=== PATIENT | female | born 1995 | race Caucasian/White ===

== ENCOUNTER 2017-04-19 14:43 | Emergency (ER) | payer BC ==
[2017-04-19 14:58] VITALS: BP 130/81
[2017-04-19] MEDS ORDERED: Ketorolac 30 MG/ML SDV IVPUSH ONE (15:58)
[2017-04-19] MEDS ORDERED: Ondansetron 4 MG/2 ML SDV IVPUSH ONE (15:58)
[2017-04-19] MEDS: Sodium Chloride 0.9% 10 ML Syringe FLUSH PRN ×2 (16:24→18:33)
[2017-04-19] MEDS ORDERED: Sodium Chloride 0.9% 10 ML Syringe FLUSH ONE (16:46)
[2017-04-19] MEDS ORDERED: Diatrizoate Meglumine/Diatrizoate Sodium 37% 120 ML Bottle PO ONE (16:46)
[2017-04-19] MEDS ORDERED: Iopamidol 612 MG/ML 150 ML Bottle IVPUSH ONE (16:46)
--- NOTE | 2017-04-19 18:05 | EDM.PDOC ---
<Tracy Paulson - Last Filed: 04/19/17 19:54> ED HPI GENERAL MEDICAL PROBLEM - General Chief Complaint: Abdominal Pain Stated Complaint: ABDOMINAL PAIN Time Seen by Provider: 04/19/17 15:05 Source of Information: Reports: Patient History Limitations: Reports: No Limitations - History of Present Illness INITIAL COMMENTS - FREE TEXT/NARRATIVE: Uvaldo is a 21 year-old female who presents today for abdominal pain. Around 1200 today, she woke up, took her medication, and became nauseated and vomited within 15 minutes. She then suddenly developed right lower quadrant pain that she describes as sharp and constant. Prior today, she was feeling "fine" and in her usual state of health. She denies any diarrhea, fever, chills, malaise, shortness of breath or chest pain. She does report a decreased appetite today, but was at her appetite baseline prior to today. Right Lower Abdomen Pain Score (Numeric/FACES): 10 - Related Data Allergies Allergy/AdvReac Type Severity Reaction Status Date / Time albuterol Allergy Facial Verified 02/25/16 20:27 Swelling Home Meds: Home Meds [place] Carbonate 900 mg PO BID 03/30/15 [History] Venlafaxine [Effexor XR] 150 mg PO DAILY 03/30/15 [History] Budesonide [Pulmicort Flexhaler] 2 inhalation INH BID PRN 04/20/15 [History] risperiDONE [RisperiDAL] 4 mg PO BEDTIME 04/20/15 [History] Levothyroxine [Synthroid] 1 tab PO DAILY 02/25/16 [History] Solifenacin Succinate [Vesicare] 10 mg PO BEDTIME 02/25/16 [History] Past Medical History HEENT History: Reports: Impaired Vision Other HEENT History: Wears glasses Respiratory History: Reports: Asthma Neurological History: Reports: Concussion Other Neuro History: aspberger syndrome. Psychiatric History: Reports: Autism Social & Family History - Family History Family Medical History: Noncontributory - Tobacco Use Smoking Status *Q: Never Smoker Second Hand Smoke Exposure: No - Caffeine Use Caffeine Use: Reports: Soda - Recreational Drug Use Recreational Drug Use: No - Living Situation & Occupation Living situation: Reports: Single, with Family ED ROS GENERAL - Review of Systems Review Of Systems: See Below Constitutional: Reports: No Symptoms, Decreased Appetite (patient reports decreased appetite today ). Denies: Fever, Chills, Weakness, Fatigue, Night Sweats, Diaphoresis, Weight Loss Respiratory: Denies: Shortness of Breath, Wheezing, Pleuritic Chest Pain, Cough Cardiovascular: Denies: Chest Pain, Lightheadedness Endocrine: Reports: Other (abdominal pain to RLQ radiating to midline ) GI/Abdominal: Reports: Abdominal Pain. Denies: Constipation, Diarrhea, Distension : Denies: Dysuria, Frequency, Urgency Musculoskeletal: Reports: No Symptoms ED EXAM, GI/ABD - Physical Exam Exam Limited By: No Limitations General Appearance: Alert, No Apparent Distress Throat/Mouth: Normal Inspection, Normal Gums, Normal Oropharynx Head: Normocephalic Neck: Supple, Non-Tender Respiratory/Chest: No Respiratory Distress, Lungs Clear, Normal Breath Sounds Cardiovascular: Regular Rate, Rhythm GI/Abdominal Exam: Normal Bowel Sounds, Tender (tenderness to palpation to right lower quadrant, no rebound tenderness, Albarran's sign is negative. ) Back Exam: No: CVA Tenderness (L), CVA Tenderness (R) Neurological: Alert, Oriented, Normal Cognition Course - Vital Signs Last Recorded V/S: Last Vital Signs Temp 97.8 F 04/19/17 14:54 Pulse 96 04/19/17 14:54 Resp 16 04/19/17 14:54 BP 130/81 04/19/17 14:54 Pulse Ox 100 04/19/17 14:54 - Orders/Labs/Meds Orders: Active Orders 24 hr Category Date Time Status Peripheral IV Care [RC] . DIRECTED Care 04/19/17 15:53 Active Abdomen Pelvis w Cont [CT] Stat Exams 04/19/17 15:58 Taken Sodium Chloride 0.9% [Saline Flush] Med 04/19/17 15:53 Active 10 ml FLUSH ASDIRECTED PRN Peripheral IV Insertion Adult [OM.PC] Stat Oth 04/19/17 15:53 Ordered Medication Orders Sodium Chloride (Saline Flush) 10 ml FLUSH ASDIRECTED PRN PRN Reason: Keep Vein Open Last Admin: 04/19/17 18:33 Dose: 10 ml Admin: 04/19/17 16:24 Dose: 10 ml Labs: Laboratory Tests 04/19/17 04/19/17 04/19/17 Range/Units 16:05 16:05 16:14 WBC 9.62 (3.98-10.04) K/mm3 RBC 4.26 (3.98-5.22) M/mm3 Hgb 12.3 (11.2-15.7) gm/L Hct 38.7 (34.1-44.9) % MCV 90.8 (79.4-94.8) fl MCH 28.9 (25.6-32.2) pg MCHC 31.8 L (32.2-35.5) g/dl RDW Std Deviation 44.6 (36.4-46.3) fL Plt Count 281 (182-369) K/mm3 MPV 10.7 (9.4-12.3) fl Neut % (Auto) 66.5 (34.0-71.1) % Lymph % (Auto) 24.0 (19.3-51.7) % [place] % (Auto) 7.4 (4.7-12.5) % Eos % (Auto) 1.7 (0.7-5.8) Baso % (Auto) 0.2 (0.1-1.2) % Neut # (Auto) 6.40 H (1.56-6.13) K/mm3 Lymph # (Auto) 2.31 (1.18-3.74) K/mm3 [place] # (Auto) 0.71 H (0.24-0.36) K/mm3 Eos # (Auto) 0.16 (0.04-0.36) K/mm3 Baso # (Auto) 0.02 (0.01-0.08) K/mm3 Sodium (136-145) mEq/L Potassium (3.5-5.1) mEq/L Chloride (98-107) mEq/L Carbon Dioxide (21-32) mEq/L Anion Gap (5-15) BUN (7-18) mg/dL Creatinine (0.55-1.02) mg/dL Est Cr Clr Drug Dosing mL/min Estimated GFR (MDRD) (>60) mL/min BUN/Creatinine Ratio (14-18) Glucose (74-106) mg/dL Calcium (8.5-10.1) mg/dL Total Bilirubin (0.2-1.0) mg/dL AST (15-37) U/L ALT (14-59) U/L Alkaline Phosphatase (46-116) U/L C-Reactive Protein (<1.0) mg/dL Total Protein (6.4-8.2) g/dl Albumin (3.4-5.0) g/dl Globulin gm/dL Albumin/Globulin Ratio (1-2) Urine Color Light yellow (Yellow) Urine Appearance Clear (Clear) Urine pH 7.0 (5.0-8.0) Ur Specific [place] 1.015 (1.005-1.030) Urine Protein Negative (Negative) Urine Glucose (UA) Negative (Negative) Urine Ketones Negative (Negative) Urine Occult Blood Negative (Negative) Urine Nitrite Negative (Negative) Urine Bilirubin Negative (Negative) Urine Urobilinogen 0.2 (0.2-1.0) Ur Leukocyte Esterase Negative (Negative) Urine RBC 0-5 (0-5) /hpf Urine WBC 0-5 (0-5) /hpf Ur Epithelial Cells 0-5 (0-5) /hpf Urine Bacteria Moderate H (FEW) /hpf Urine Mucus Few (FEW) /hpf Urine HCG, Qual Negative (NEGATIVE) 04/19/17 Range/Units 16:14 WBC (3.98-10.04) K/mm3 RBC (3.98-5.22) M/mm3 Hgb (11.2-15.7) gm/L Hct (34.1-44.9) % MCV (79.4-94.8) fl MCH (25.6-32.2) pg MCHC (32.2-35.5) g/dl RDW Std Deviation (36.4-46.3) fL Plt Count (182-369) K/mm3 MPV (9.4-12.3) fl Neut % (Auto) (34.0-71.1) % Lymph % (Auto) (19.3-51.7) % [place] % (Auto) (4.7-12.5) % Eos % (Auto) (0.7-5.8) Baso % (Auto) (0.1-1.2) % Neut # (Auto) (1.56-6.13) K/mm3 Lymph # (Auto) (1.18-3.74) K/mm3 [place] # (Auto) (0.24-0.36) K/mm3 Eos # (Auto) (0.04-0.36) K/mm3 Baso # (Auto) (0.01-0.08) K/mm3 Sodium 141 (136-145) mEq/L Potassium 4.0 (3.5-5.1) mEq/L Chloride 109 H (98-107) mEq/L Carbon Dioxide 24 (21-32) mEq/L Anion Gap 12.0 (5-15) BUN 4 L (7-18) mg/dL Creatinine 0.9 (0.55-1.02) mg/dL Est Cr Clr Drug Dosing 86.82 mL/min Estimated GFR (MDRD) > 60 (>60) mL/min BUN/Creatinine Ratio 4.4 L (14-18) Glucose 99 (74-106) mg/dL Calcium 8.9 (8.5-10.1) mg/dL Total Bilirubin 0.2 (0.2-1.0) mg/dL AST 18 (15-37) U/L ALT 32 (14-59) U/L Alkaline Phosphatase 98 (46-116) U/L C-Reactive Protein 0.6 (<1.0) mg/dL Total Protein 6.7 (6.4-8.2) g/dl Albumin 3.6 (3.4-5.0) g/dl Globulin 3.1 gm/dL Albumin/Globulin Ratio 1.2 (1-2) Urine Color (Yellow) Urine Appearance (Clear) Urine pH (5.0-8.0) Ur Specific [place] (1.005-1.030) Urine Protein (Negative) Urine Glucose (UA) (Negative) Urine Ketones (Negative) Urine Occult Blood (Negative) Urine Nitrite (Negative) Urine Bilirubin (Negative) Urine Urobilinogen (0.2-1.0) Ur Leukocyte Esterase (Negative) Urine RBC (0-5) /hpf Urine WBC (0-5) /hpf Ur Epithelial Cells (0-5) /hpf Urine Bacteria (FEW) /hpf Urine Mucus (FEW) /hpf Urine HCG, Qual (NEGATIVE) Meds: Medications Generic Name Dose Route Start Last Admin Trade Name Freq PRN Reason Stop Dose Admin Sodium Chloride 10 ml 04/19/17 15:53 04/19/17 18:33 Saline Flush FLUSH 10 ml ASDIRECTED PRN Administration Keep Vein Open Discontinued Medications Generic Name Dose Route Start Last Admin Trade Name Freq PRN Reason Stop Dose Admin Diatrizoate Meglum/Diatrizoate Sod 90 ml 04/19/17 16:46 04/19/17 18:32 Gastrografin 37% PO 04/19/17 16:47 90 ml ONETIME ONE Administration Iopamidol 125 ml 04/19/17 16:46 04/19/17 18:32 Isovue-300 (61%) IVPUSH 04/19/17 16:47 125 ml ONETIME ONE Administration Ketorolac Tromethamine 30 mg 04/19/17 15:58 04/19/17 16:27 Toradol IVPUSH 04/19/17 15:59 30 mg ONETIME ONE Administration Ondansetron HCl 4 mg 04/19/17 15:58 04/19/17 16:25 Zofran IVPUSH 04/19/17 15:59 4 mg ONETIME ONE Administration Sodium Chloride 10 ml 04/19/17 16:46 Saline Flush FLUSH 04/19/17 16:47 ONETIME ONE - Re-Assessments/Exams Free Text/Narrative Re-Assessment/Exam: CBC, CMP, and UA were ordered and results are unremarkable. Urine test is negative. A CT abdomen and pelvis with contrast was ordered and read by Eligio. Results indicated no acute findings, normal appendix. She was given Toradol and Zofran for the treatment of pain and nausea. Her symptoms resolved and she was discharged pain free. The patient was notified of the lab and CT results and was discharged and educated on return precautions. The patient verbalized understanding of the treatment and is in agreement. Departure - Departure Disposition: Home, Self-Care 01 Clinical Impression: Abdominal pain of unknown etiology - Discharge Information Instructions: Abdominal Pain, Adult Referrals: Janessa Agee PA-C [Primary Care Provider] - Forms: ED Department Discharge Additional Instructions: Rest, drink plenty of fluids Follow-up with your primary care provider if you continue to have problems Return to ER with any worsening symptoms Tylenol 650mg every 4-6 hours as needed for pain - My Orders Last 24 Hours: My Active Orders 04/19/17 15:53 Peripheral IV Care [RC] . DIRECTED Sodium Chloride 0.9% [Saline Flush] 10 ml FLUSH ASDIRECTED PRN Peripheral IV Insertion Adult [OM.PC] Stat 04/19/17 15:58 Abdomen Pelvis w Cont [CT] Stat - Assessment/Plan Last 24 Hours: My Active Orders 04/19/17 15:53 Peripheral IV Care [RC] . DIRECTED Sodium Chloride 0.9% [Saline Flush] 10 ml FLUSH ASDIRECTED PRN Peripheral IV Insertion Adult [OM.PC] Stat 04/19/17 15:58 Abdomen Pelvis w Cont [CT] Stat <Thao Skinner - Last Filed: 04/19/17 20:34> ED HPI GENERAL MEDICAL PROBLEM - General Source of Information: Reports: Patient History Limitations: Reports: No Limitations ED ROS GENERAL - Review of Systems Review Of Systems: See Below ED EXAM, GI/ABD - Physical Exam Exam: See Below Departure - Departure Time of Disposition: 18:44 Condition: Good
--- NOTE | 2017-04-20 07:17 | CT ---
CT abdomen and pelvis Technique: Multiple axial sections were obtained from above the dome of the diaphragm inferiorly through the pubic symphysis. Intravenous and oral contrast was utilized. Delayed images were also obtained through the bladder. Comparison: Previous CT exam of 06/30/15. Findings: Visualized lung bases show nothing acute. Liver shows no focal parenchymal abnormality. Spleen appears within normal limits. Adrenal glands show no nodule. Kidneys show symmetric contrast enhancement without hydronephrosis or mass. Pancreas is normal. Aorta shows no aneurysmal dilatation. Gallbladder shows no calcified gallstones. Small retroperitoneal lymph nodes are seen which remain stable from prior exam and felt to be within normal limits. No pelvic mass or adenopathy is seen. Appendix is seen which appears normal. Delayed images show contrast within the distal ureters and bladder. No inflammatory change or free fluid is seen. Bone window settings were reviewed which appear within normal limits for the patient's age. Small fat-containing umbilical hernia is seen. Impression: 1. No acute abnormality is identified on CT study of the abdomen and pelvis. No significant change is seen from prior CT exam. Diagnostic code #2 I agree with preliminary report issued by [facility] ([facility] report finalized on 04/19/17, 7:18 PM Central Time)
== END 2017-04-19 19:05 | disposition home or self-care (01) ==
LOC: JD.ED 14:43
DX: R10.31 Right lower quadrant pain (principal); J45.909 Unspecified asthma, uncomplicated; F84.0 Autistic disorder; Z79.899 Other long term (current) drug therapy; Z88.8 Allergy status to other drugs, medicaments and biological substances
CPT/HCPCS: 36415; 74177; 80053; 81001; 81025; 85025; 86140; 96374; 96375; 99284; J1885; J2405; J7050; Q9963; Q9967

== ENCOUNTER 2018-06-27 02:59 | Emergency (ER) | payer BC ==
[2018-06-27 03:16] VITALS: BP 135/86
[2018-06-27] MEDS ORDERED: Sodium Chloride 0.9% 10 ML Syringe FLUSH PRN (03:17)
[2018-06-27] MEDS ORDERED: Ondansetron 4 MG/2 ML SDV IVPUSH ONE (03:17)
--- NOTE | 2018-06-27 03:26 | EDM.PDOCBH ---
ED HPI GENERAL MEDICAL PROBLEM - General Chief Complaint: Behavioral/Psych Stated Complaint: overdose pills Time Seen by Provider: 06/27/18 03:13 Source of Information: Reports: Patient, Family History Limitations: Reports: No Limitations - History of Present Illness INITIAL COMMENTS - FREE TEXT/NARRATIVE: The patient presents with an overdose. The patient took about 50 trazadone that were 50mgs. She did this about an hour ago. She says she felt overwhelmed this morning. She has tried to hurt herself in the past a couple years ago. She did vomit here. She has no pain. She has a history of autism and bipolar disorder. She has no fever, chills, cough, chest pain, shortness of breath or abdominal pain. Onset: Sudden Duration: Hour(s): (1) Severity: Mild Improves with: Reports: None Worsens with: Reports: None Associated Symptoms: Reports: Nausea/Vomiting. Denies: Chest Pain, Fever/Chills , Headaches, Loss of Appetite, Shortness of Breath - Related Data Allergies Allergy/AdvReac Type Severity Reaction Status Date / Time albuterol Allergy Facial Verified 06/27/18 03:11 Swelling Home Meds: Home Meds [place] Carbonate 900 mg PO BID 03/30/15 [History] Venlafaxine [Effexor XR] 150 mg PO DAILY 03/30/15 [History] Budesonide [Pulmicort Flexhaler] 2 inhalation INH BID PRN 04/20/15 [History] risperiDONE [RisperiDAL] 4 mg PO BEDTIME 04/20/15 [History] Levothyroxine [Synthroid] 1 tab PO DAILY 02/25/16 [History] Solifenacin Succinate [Vesicare] 10 mg PO BEDTIME 02/25/16 [History] Past Medical History HEENT History: Reports: Impaired Vision Other HEENT History: Wears glasses Respiratory History: Reports: Asthma Neurological History: Reports: Concussion Other Neuro History: aspberger syndrome. Psychiatric History: Reports: Autism Social & Family History - Family History Family Medical History: Noncontributory - Caffeine Use Caffeine Use: Reports: Soda - Living Situation & Occupation Living situation: Reports: Single, with Family ED ROS GENERAL - Review of Systems Review Of Systems: See Below Constitutional: Reports: No Symptoms HEENT: Reports: No Symptoms Respiratory: Reports: No Symptoms Cardiovascular: Reports: No Symptoms Endocrine: Reports: No Symptoms GI/Abdominal: Reports: Nausea, Vomiting. Denies: Abdominal Pain : Reports: No Symptoms Musculoskeletal: Reports: No Symptoms ED EXAM, BEHAVIORAL HEALTH - Physical Exam Exam: See Below Exam Limited By: No Limitations General Appearance: Alert, No Apparent Distress Ears: Normal External Exam Nose: Normal Inspection Head: Atraumatic, Normocephalic Neck: Normal Inspection Respiratory/Chest: No Respiratory Distress, Lungs Clear, Normal Breath Sounds Cardiovascular: Regular Rate, Rhythm, No Edema, No Murmur GI/Abdominal: Soft, Non-Tender, No Organomegaly, No Mass Back Exam: Normal Inspection Extremities: Normal Inspection COURSE, BEHAVIORAL HEALTH COMP - Course Vital Signs: Last Vital Signs Temp 97.4 F 06/27/18 03:12 Pulse 100 06/27/18 03:12 Resp 18 06/27/18 03:12 BP 135/86 06/27/18 03:12 Pulse Ox 100 06/27/18 03:12 Orders, Labs, Meds: Active Orders 24 hr Category Date Time Status Cardiac Monitoring [RC] . DIRECTED Care 06/27/18 03:17 Active EKG Documentation Completion [RC] STAT Care 06/27/18 03:18 Active Peripheral IV Care [RC] . DIRECTED Care 06/27/18 03:18 Active DRUG SCREEN, URINE [URCHEM] Stat Lab 06/27/18 03:17 Ordered Sodium Chloride 0.9% [Normal Saline] 1,000 ml Med 06/27/18 03:30 Active IV ASDIRECTED Sodium Chloride 0.9% [Saline Flush] Med 06/27/18 03:17 Active 10 ml FLUSH ASDIRECTED PRN ED Antiemetic Medication Reflex [OM.PC] Stat Oth 06/27/18 03:17 Ordered Peripheral IV Insertion Adult [OM.PC] Stat Oth 06/27/18 03:17 Ordered Medication Orders Sodium Chloride (Normal Saline) 1,000 mls @ 125 mls/hr IV ASDIRECTED BABATUNDE Last Admin: 06/27/18 03:26 Dose: 125 mls/hr Sodium Chloride (Saline Flush) 10 ml FLUSH ASDIRECTED PRN PRN Reason: Keep Vein Open Last Admin: 06/27/18 03:26 Dose: 10 ml Laboratory Tests 06/27/18 06/27/18 06/27/18 Range/Units 03:20 03:20 03:20 WBC 15.46 H (3.98-10.04) K/mm3 RBC 4.80 (3.98-5.22) M/mm3 Hgb 14.1 (11.2-15.7) gm/L Hct 43.4 (34.1-44.9) % MCV 90.4 (79.4-94.8) fl MCH 29.4 (25.6-32.2) pg MCHC 32.5 (32.2-35.5) g/dl RDW Std Deviation 42.3 (36.4-46.3) fL Plt Count 302 (182-369) K/mm3 MPV 10.3 (9.4-12.3) fl Neut % (Auto) 74.0 H (34.0-71.1) % Lymph % (Auto) 19.3 (19.3-51.7) % [place] % (Auto) 6.0 (4.7-12.5) % Eos % (Auto) 0.3 L (0.7-5.8) Baso % (Auto) 0.1 (0.1-1.2) % Neut # (Auto) 11.43 H (1.56-6.13) K/mm3 Lymph # (Auto) 2.98 (1.18-3.74) K/mm3 [place] # (Auto) 0.93 H (0.24-0.36) K/mm3 Eos # (Auto) 0.05 (0.04-0.36) K/mm3 Baso # (Auto) 0.02 (0.01-0.08) K/mm3 Sodium 136 (136-145) mEq/L Potassium 3.8 (3.5-5.1) mEq/L Chloride 103 (98-107) mEq/L Carbon Dioxide 24 (21-32) mEq/L Anion Gap 12.8 (5-15) BUN 9 (7-18) mg/dL Creatinine 0.9 (0.55-1.02) mg/dL Est Cr Clr Drug Dosing TNP Estimated GFR (MDRD) > 60 (>60) mL/min BUN/Creatinine Ratio 10.0 L (14-18) Glucose 108 H (74-106) mg/dL Calcium 10.1 (8.5-10.1) mg/dL Total Bilirubin 0.4 (0.2-1.0) mg/dL AST 21 (15-37) U/L ALT 34 (14-59) U/L Alkaline Phosphatase 128 H (46-116) U/L Total Protein 8.0 (6.4-8.2) g/dl Albumin 4.1 (3.4-5.0) g/dl Globulin 3.9 gm/dL Albumin/Globulin Ratio 1.1 (1-2) HCG, Qual Negative (NEGATIVE) Salicylates (2.8-20) mg/dL Acetaminophen 0 L (10-30) ug/mL Ethyl Alcohol 0.00 (0.00) gm% 06/27/18 Range/Units 03:20 WBC (3.98-10.04) K/mm3 RBC (3.98-5.22) M/mm3 Hgb (11.2-15.7) gm/L Hct (34.1-44.9) % MCV (79.4-94.8) fl MCH (25.6-32.2) pg MCHC (32.2-35.5) g/dl RDW Std Deviation (36.4-46.3) fL Plt Count (182-369) K/mm3 MPV (9.4-12.3) fl Neut % (Auto) (34.0-71.1) % Lymph % (Auto) (19.3-51.7) % [place] % (Auto) (4.7-12.5) % Eos % (Auto) (0.7-5.8) Baso % (Auto) (0.1-1.2) % Neut # (Auto) (1.56-6.13) K/mm3 Lymph # (Auto) (1.18-3.74) K/mm3 [place] # (Auto) (0.24-0.36) K/mm3 Eos # (Auto) (0.04-0.36) K/mm3 Baso # (Auto) (0.01-0.08) K/mm3 Sodium (136-145) mEq/L Potassium (3.5-5.1) mEq/L Chloride (98-107) mEq/L Carbon Dioxide (21-32) mEq/L Anion Gap (5-15) BUN (7-18) mg/dL Creatinine (0.55-1.02) mg/dL Est Cr Clr Drug Dosing Estimated GFR (MDRD) (>60) mL/min BUN/Creatinine Ratio (14-18) Glucose (74-106) mg/dL Calcium (8.5-10.1) mg/dL Total Bilirubin (0.2-1.0) mg/dL AST (15-37) U/L ALT (14-59) U/L Alkaline Phosphatase (46-116) U/L Total Protein (6.4-8.2) g/dl Albumin (3.4-5.0) g/dl Globulin gm/dL Albumin/Globulin Ratio (1-2) HCG, Qual (NEGATIVE) Salicylates 1.3 L (2.8-20) mg/dL Acetaminophen (10-30) ug/mL Ethyl Alcohol (0.00) gm% Medications Generic Name Dose Route Start Last Admin Trade Name Freq PRN Reason Stop Dose Admin Sodium Chloride 1,000 mls @ 125 mls/hr 06/27/18 03:30 06/27/18 03:26 Normal Saline IV 125 mls/hr ASDIRECTED BABATUNDE Administration Sodium Chloride 10 ml 06/27/18 03:17 06/27/18 03:26 Saline Flush FLUSH 10 ml ASDIRECTED PRN Administration Keep Vein Open Discontinued Medications Generic Name Dose Route Start Last Admin Trade Name Freq PRN Reason Stop Dose Admin Ondansetron HCl 4 mg 06/27/18 03:17 06/27/18 03:26 Zofran IVPUSH 06/27/18 03:18 4 mg ONETIME ONE Administration Re-Assessment/Re-Exam: I ordered an IV NS at 125mL/hr, zofran 4mg IV, labs and an EKG. I called poison control and they said peak effect is 2 hours and to watch for her getting sleepy, hypotensive and QT prolongation. They recommended observing for a minimum of 4 hours. Her EKG shows a NSR with no acute changes. Her WBC was elevated at 15.46. Her Alk Phos was elevated at 128. Her HCG was negative. Her salicylate level was 1.3. Her acetaminophen level was 0. Her ETOH was 0. She has been doing good She is nearing the 4 hour observation period. I talked to her again and she was impulsive early this morning over a boy. I do not think she is a danger to herself. I feel it is safe to send her home. Departure - Departure Time of Disposition: 06:45 Disposition: Home, Self-Care 01 Condition: Good Clinical Impression: Suicidal ideation Overdose Qualifiers: Encounter type: initial encounter Injury intent: intentional self-harm Qualified Code(s): T50.902A - Poisoning by unspecified drugs, medicaments and biological substances, intentional self-harm, initial encounter - Discharge Information *PRESCRIPTION DRUG MONITORING PROGRAM REVIEWED*: No *COPY OF PRESCRIPTION DRUG MONITORING REPORT IN PATIENT CHERY: No Referrals: PCP,Not In Area [Primary Care Provider] - Forms: ED Department Discharge Additional Instructions: Call Dr Rollins's office and let them know what happened. Talk to your mom or someone else if you have these feelings again. Please return if you are worse. - My Orders Last 24 Hours: My Active Orders 06/27/18 03:17 Cardiac Monitoring [RC] . DIRECTED DRUG SCREEN, URINE [URCHEM] Stat Sodium Chloride 0.9% [Saline Flush] 10 ml FLUSH ASDIRECTED PRN ED Antiemetic Medication Reflex [OM.PC] Stat Peripheral IV Insertion Adult [OM.PC] Stat 06/27/18 03:18 EKG Documentation Completion [RC] STAT Peripheral IV Care [RC] . DIRECTED 06/27/18 03:30 Sodium Chloride 0.9% [Normal Saline] 1,000 ml IV ASDIRECTED - Assessment/Plan Last 24 Hours: My Active Orders 06/27/18 03:17 Cardiac Monitoring [RC] . DIRECTED DRUG SCREEN, URINE [URCHEM] Stat Sodium Chloride 0.9% [Saline Flush] 10 ml FLUSH ASDIRECTED PRN ED Antiemetic Medication Reflex [OM.PC] Stat Peripheral IV Insertion Adult [OM.PC] Stat 06/27/18 03:18 EKG Documentation Completion [RC] STAT Peripheral IV Care [RC] . DIRECTED 06/27/18 03:30 Sodium Chloride 0.9% [Normal Saline] 1,000 ml IV ASDIRECTED
[2018-06-27] MEDS ORDERED: Sodium Chloride 0.9% 1,000 ML IV SCH (03:30)
[2018-06-27 04:04] LABS: ACETAMINOPHEN 0 ug/mL (10-30)
== END 2018-06-27 06:58 | disposition home or self-care (01) ==
LOC: JD.ED 02:59
DX: T43.212A Poisoning by selective serotonin and norepinephrine reuptake inhibitors, intentional self-harm, initial encounter (principal); J45.909 Unspecified asthma, uncomplicated; Z79.899 Other long term (current) drug therapy
CPT/HCPCS: 36415; 80053; 84703; 85025; 93005; 96361; 96374; 99285; G0480; J2405; J7040; J7050; 93010; 99284-25

== ENCOUNTER 2018-11-12 13:35 | Emergency (ER) | payer OTHER, BC ==
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
[2018-11-12 14:25] VITALS: BP 108/69
== END 2018-11-12 14:12 | disposition home or self-care (01) ==
LOC: JD.ED 13:35
DX: M25.562 Pain in left knee (principal); R07.89 Other chest pain; V54.6XXA Passenger in pick-up truck or van injured in collision with heavy transport vehicle or bus in traffic accident, initial encounter
CPT/HCPCS: 99282; 99284

== ENCOUNTER 2019-11-16 19:36 | Inpatient (IN) | payer BC, MEDICAID ==
[2019-11-16] MEDS ORDERED: Sodium Chloride 0.9% 10 ML Syringe FLUSH PRN (20:19)
[2019-11-16] MEDS ORDERED: Ondansetron 4 MG/2 ML SDV IVPUSH ONE (20:22)
[2019-11-16] MEDS ORDERED: Sodium Chloride 0.9% 1,000 ML IV SCH (20:30)
--- NOTE | 2019-11-16 20:30 | EDM.PDOC ---
ED HPI GENERAL MEDICAL PROBLEM - General Chief Complaint: Fever Stated Complaint: FEVER/VOMITING Time Seen by Provider: 11/16/19 20:02 Source of Information: Reports: Patient, Family History Limitations: Reports: No Limitations - History of Present Illness INITIAL COMMENTS - FREE TEXT/NARRATIVE: Fever, cough, congestion, vomiting, and diarrhea for the last 2 days. Mother states that her temp at home was 103 degrees. She had Tylenol approximately 1 hour ago. Current temperature is 100.3. Patient states that anytime she is eaten or drank anything for the last 2 days, she vomits. Denies any significant abdominal pain. Family members have been sick with respiratory symptoms, however no one else in the house has had vomiting or diarrhea. Patient has a history of asthma, however she has been asymptomatic. Patient currently has a cardiac loop recorder as she has had episodes of "heart block". 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 Bilateral Back Pain Score (Numeric/FACES): 4 - Related Data Allergies Allergy/AdvReac Type Severity Reaction Status Date / Time albuterol Allergy Facial Verified 11/17/19 03:05 Swelling amoxicillin [From Augmentin] Allergy Rash Verified 11/17/19 03:05 clavulanic acid Allergy Rash Verified 11/17/19 03:05 [From Augmentin] Home Meds: Home Meds Prazosin HCl [Prazosin] 10 mg PO BEDTIME PRN 07/10/19 [History] RX: ClonazePAM [KlonoPIN] 0.5 mg PO BEDTIME 07/10/19 [History] RX: Levothyroxine 75 mcg PO QAM 07/10/19 [History] RX: metFORMIN [Glucophage] 500 mg PO BEDTIME 07/10/19 [History] traZODone HCl [Trazodone HCl] 50 mg PO BEDTIME PRN 07/10/19 [History] RX: [place] Carbonate [Eskalith CR] 450 mg PO BID 11/16/19 [History] Cariprazine Hydrochloride [Vraylar] 3 mg PO DAILY 11/17/19 [History] RX: cloNIDine [Catapres] 0.1 mg PO DAILY 11/17/19 [History] Past Medical History HEENT History: Reports: Impaired Vision Other HEENT History: Wears glasses Cardiovascular History: Reports: Hypertension, Other (See Below) Other Cardiovascular History: heart block Respiratory History: Reports: Asthma Gastrointestinal History: Reports: GERD BOX TENDER History: Reports: Other (See Below) Other BOX TENDER History: LEEP procedure for cervical dysplasia in November of 2018 Neurological History: Reports: Other (See Below) Other Neuro History: aspberger syndrome, stoke-like symptoms wtih neurological deficits in 2014 Psychiatric History: Reports: Anxiety, Autism, Bipolar, Depression, Mood Swings , PTSD, Suicide Attempt, Suicidal Ideation Endocrine/Metabolic History: Reports: Diabetes, Type II, Hypothyroidism, Obesity /BMI 30+ - Past Surgical History Cardiovascular Surgical History: Reports: Other (See Below) Other Cardiovascular Surgeries/Procedures: loop recorder placed end of oct Female Surgical History: Reports: LEEP Neurological Surgical History: Reports: None Social & Family History - Family History Family Medical History: Noncontributory - Tobacco Use Smoking Status *Q: Current Every Day Smoker Years of Tobacco use: 3 Packs/Tins Daily: 0.3 - Caffeine Use Caffeine Use: Reports: Coffee, Soda - Recreational Drug Use Recreational Drug Use: No - Living Situation & Occupation Living situation: Reports: Single, with Family ( lives with her parents.) Occupation: Employed ([employer]) ED ROS GENERAL - Review of Systems Review Of Systems: Comprehensive ROS is negative, except as noted in HPI. ED EXAM, GENERAL - Physical Exam Exam: See Below Exam Limited By: No Limitations General Appearance: Alert, WD/WN, Mild Distress Ears: Normal External Exam, Normal Canal, Hearing Grossly Normal, Normal TMs Throat/Mouth: Normal Inspection, Normal Lips, Normal Teeth, Normal Gums, Normal Voice, No Airway Compromise, Other (Dry, coated tongue) Respiratory/Chest: No Respiratory Distress, Lungs Clear, Normal Breath Sounds, No Accessory Muscle Use, Chest Non-Tender Cardiovascular: Normal Peripheral Pulses, Regular Rate, Rhythm, No Edema, No Gallop, No JVD, No Murmur, No Rub GI/Abdominal: Normal Bowel Sounds, Soft, Non-Tender, No Organomegaly, No Distention, No Abnormal Bruit, No Mass Back Exam: Normal Inspection, Full Range of Motion, CVA Tenderness (L), CVA Tenderness (R) Neurological: Alert, Oriented, CN II-XII Intact, Normal Cognition, Normal Gait, Normal Reflexes, No Motor/Sensory Deficits Psychiatric: Normal Affect, Normal Mood Skin Exam: Warm, Dry, Intact, Normal Color, No Rash Course - Vital Signs Last Recorded V/S: Last Vital Signs Temp 97.3 F 11/17/19 07:34 Pulse 117 H 11/17/19 07:34 Resp 28 H 11/17/19 07:34 BP 138/94 H 11/17/19 09:50 Pulse Ox 99 11/17/19 07:34 - Orders/Labs/Meds Orders: Active Orders 24 hr Category Date Time Status Activity as Tolerated [RC] .Routine Care 11/17/19 02:55 Active EKG Documentation Completion [RC] STAT Care 11/16/19 20:20 Active Orthostatic Vital Signs [RC] ASDIRECTED Care 11/16/19 20:02 Inactive Clear Liquid Diet [DIET] Diet 11/17/19 Breakfast Active CULTURE BLOOD [BC] Stat Lab 11/16/19 22:50 Received CULTURE BLOOD [BC] Stat Lab 11/16/19 22:57 Received CULTURE URINE [RM] Stat Lab 11/16/19 21:54 Results HYDROmorphone [Dilaudid] Med 11/17/19 05:31 Active 0.5 mg IVPUSH Q2H PRN Ondansetron [Zofran] Med 11/17/19 02:55 Active 4 mg IVPUSH Q6H PRN Sodium Chloride 0.9% [Saline Flush] Med 11/16/19 20:19 Active 10 ml FLUSH ASDIRECTED PRN Sodium Chloride 0.9% with KCl [Normal Saline with 40 Med 11/17/19 03:00 Active mEq KCl] 1,000 ml IV ASDIRECTED Blood Culture x2 Reflex Set [OM.PC] Stat Oth 11/16/19 22:28 Ordered Peripheral IV Insertion Adult [OM.PC] Stat Oth 11/16/19 20:19 Ordered Code Status [Resuscitation Status] Routine Resus Stat 11/17/19 02:53 Ordered Medication Orders Acetaminophen (Tylenol) 650 mg PO Q4H PRN PRN Reason: Pain (Mild 1-3)/fever Hydrocodone Bitart/Acetaminophen (Horner 325-5 Mg) 1 tab PO Q4H PRN PRN Reason: Pain (moderate 4-6) Last Admin: 11/17/19 11:08 Dose: 1 tab Clonazepam (Klonopin) 0.5 mg PO BEDTIME BABATUNDE Clonidine HCl (Catapres) 0.1 mg PO DAILY BABATUNDE Last Admin: 11/17/19 09:50 Dose: 0.1 mg Hydromorphone HCl (Dilaudid) 0.5 mg IVPUSH Q2H PRN PRN Reason: Pain Last Admin: 11/17/19 05:51 Dose: 0.5 mg Potassium Chloride/Sodium Chloride (Normal Saline With 40 Meq Kcl) 1,000 mls @ 150 mls/hr IV ASDIRECTED [facility] Last Admin: 11/17/19 06:47 Dose: 150 mls/hr Levofloxacin/Dextrose 750 mg/ (Premix) 150 mls @ 100 mls/hr IV Q24H [facility] Insulin Human Lispro (Humalog) 0 unit SUBCUT BIDAC [facility]; Protocol Ketorolac Tromethamine (Toradol) 30 mg IV Q6H PRN PRN Reason: Pain (moderate 4-6) Levothyroxine Sodium (Levothyroxine) 75 mcg PO QAM [facility] Miscellaneous Information (Remove Patch) 0 ea TRDERM DAILY [facility] Nicotine (Habitrol) 14 mg TRDERM DAILY [facility] Last Admin: 11/17/19 09:50 Dose: Not Given Ondansetron HCl (Zofran) 4 mg IVPUSH Q6H PRN PRN Reason: Nausea Last Admin: 11/17/19 05:23 Dose: 4 mg Cariprazine Hydrochloride [ Vraylar] 3 Mg 0 each PO DAILY [facility] Last Admin: 11/17/19 09:50 Dose: [place] Carbonate (450 Mg) 450 each PO BID [facility] Last Admin: 11/17/19 09:50 Dose: Prazosin Hcl [ (Prazosin] 10 Mg) 0 each PO BEDTIME PRN PRN Reason: NIGHTMARES Sodium Chloride (Saline Flush) 10 ml FLUSH ASDIRECTED PRN PRN Reason: Keep Vein Open Last Admin: 11/16/19 23:40 Dose: 10 ml Trazodone HCl (Trazodone) 50 mg PO BEDTIME PRN PRN Reason: Insomnia Labs: Laboratory Tests 11/16/19 11/16/19 11/16/19 Range/Units 20:50 20:50 20:50 WBC 16.61 H (3.98-10.04) K/mm3 RBC 4.49 (3.98-5.22) M/mm3 Hgb 13.8 (11.2-15.7) gm/dl Hct 41.4 (34.1-44.9) % MCV 92.2 (79.4-94.8) fl MCH 30.7 (25.6-32.2) pg MCHC 33.3 (32.2-35.5) g/dl RDW Std Deviation 43.0 (36.4-46.3) fL Plt Count 221 D (182-369) K/mm3 MPV 11.0 (9.4-12.3) fl Neut % (Auto) 84.1 H (34.0-71.1) % Lymph % (Auto) 8.2 L (19.3-51.7) % [place] % (Auto) 7.6 (4.7-12.5) % Eos % (Auto) 0 L (0.7-5.8) Baso % (Auto) 0.1 (0.1-1.2) % Neut # (Auto) 13.96 H (1.56-6.13) K/mm3 Lymph # (Auto) 1.36 (1.18-3.74) K/mm3 [place] # (Auto) 1.27 H (0.24-0.36) K/mm3 Eos # (Auto) 0.00 L (0.04-0.36) K/mm3 Baso # (Auto) 0.02 (0.01-0.08) K/mm3 Manual Slide Review Abnormal smear PT (9.7-12.0) SECONDS INR APTT (22-31) SECONDS Sodium 138 (136-145) mEq/L Potassium 3.2 L (3.5-5.1) mEq/L Chloride 101 (98-107) mEq/L Carbon Dioxide 21 (21-32) mEq/L Anion Gap 19.2 H (5-15) BUN 7 (7-18) mg/dL Creatinine 1.3 H (0.55-1.02) mg/dL Est Cr Clr Drug Dosing 56.15 mL/min Estimated GFR (MDRD) 51 (>60) mL/min BUN/Creatinine Ratio 5.4 L (14-18) Glucose 130 H (74-106) mg/dL Lactic Acid (0.4-2.0) mmol/L Calcium 9.6 (8.5-10.1) mg/dL Magnesium 1.9 (1.8-2.4) mg/dl Total Bilirubin 0.8 (0.2-1.0) mg/dL AST 15 (15-37) U/L ALT 29 (14-59) U/L Alkaline Phosphatase 74 (46-116) U/L Total Protein 8.2 (6.4-8.2) g/dl Albumin 3.4 (3.4-5.0) g/dl Globulin 4.8 gm/dL Albumin/Globulin Ratio 0.7 L (1-2) Urine Color (Yellow) Urine Appearance (Clear) Urine pH (5.0-8.0) Ur Specific [place] (1.005-1.030) Urine Protein (Negative) Urine Glucose (UA) (Negative) Urine Ketones (Negative) Urine Occult Blood (Negative) Urine Nitrite (Negative) Urine Bilirubin (Negative) Urine Urobilinogen (0.2-1.0) Ur Leukocyte Esterase (Negative) Urine RBC (0-5) /hpf Urine WBC (0-5) /hpf Urine WBC Clumps (NOT SEEN) /hpf Ur Squamous Epith Cells (0-5) /hpf Urine Bacteria (FEW) /hpf Urine Mucus (FEW) /hpf 11/16/19 11/16/19 11/16/19 Range/Units 21:54 22:50 22:50 WBC (3.98-10.04) K/mm3 RBC (3.98-5.22) M/mm3 Hgb (11.2-15.7) gm/dl Hct (34.1-44.9) % MCV (79.4-94.8) fl MCH (25.6-32.2) pg MCHC (32.2-35.5) g/dl RDW Std Deviation (36.4-46.3) fL Plt Count (182-369) K/mm3 MPV (9.4-12.3) fl Neut % (Auto) (34.0-71.1) % Lymph % (Auto) (19.3-51.7) % [place] % (Auto) (4.7-12.5) % Eos % (Auto) (0.7-5.8) Baso % (Auto) (0.1-1.2) % Neut # (Auto) (1.56-6.13) K/mm3 Lymph # (Auto) (1.18-3.74) K/mm3 [place] # (Auto) (0.24-0.36) K/mm3 Eos # (Auto) (0.04-0.36) K/mm3 Baso # (Auto) (0.01-0.08) K/mm3 Manual Slide Review PT 13.1 H (9.7-12.0) SECONDS INR 1.22 APTT (22-31) SECONDS Sodium (136-145) mEq/L Potassium (3.5-5.1) mEq/L Chloride (98-107) mEq/L Carbon Dioxide (21-32) mEq/L Anion Gap (5-15) BUN (7-18) mg/dL Creatinine (0.55-1.02) mg/dL Est Cr Clr Drug Dosing mL/min Estimated GFR (MDRD) (>60) mL/min BUN/Creatinine Ratio (14-18) Glucose (74-106) mg/dL Lactic Acid 1.0 (0.4-2.0) mmol/L Calcium (8.5-10.1) mg/dL Magnesium (1.8-2.4) mg/dl Total Bilirubin (0.2-1.0) mg/dL AST (15-37) U/L ALT (14-59) U/L Alkaline Phosphatase (46-116) U/L Total Protein (6.4-8.2) g/dl Albumin (3.4-5.0) g/dl Globulin gm/dL Albumin/Globulin Ratio (1-2) Urine Color Yellow (Yellow) Urine Appearance Cloudy H (Clear) Urine pH 6.5 (5.0-8.0) Ur Specific [place] 1.020 (1.005-1.030) Urine Protein 3+ H (Negative) Urine Glucose (UA) Negative (Negative) Urine Ketones Negative (Negative) Urine Occult Blood 2+ H (Negative) Urine Nitrite Positive H (Negative) Urine Bilirubin Negative (Negative) Urine Urobilinogen 2.0 H (0.2-1.0) Ur Leukocyte Esterase 3+ H (Negative) Urine RBC 5-10 H (0-5) /hpf Urine WBC 75-100 H (0-5) /hpf Urine WBC Clumps Few (NOT SEEN) /hpf Ur Squamous Epith Cells 5-10 H (0-5) /hpf Urine Bacteria Many H (FEW) /hpf Urine Mucus Few (FEW) /hpf 11/16/19 11/17/19 11/17/19 Range/Units 22:50 05:53 05:53 WBC 15.65 H (3.98-10.04) K/mm3 RBC 4.00 (3.98-5.22) M/mm3 Hgb 12.3 D (11.2-15.7) gm/dl Hct 36.7 (34.1-44.9) % MCV 91.8 (79.4-94.8) fl MCH 30.8 (25.6-32.2) pg MCHC 33.5 (32.2-35.5) g/dl RDW Std Deviation 42.4 (36.4-46.3) fL Plt Count 165 L (182-369) K/mm3 MPV 10.8 (9.4-12.3) fl Neut % (Auto) 83.9 H (34.0-71.1) % Lymph % (Auto) 6.5 L (19.3-51.7) % [place] % (Auto) 9.5 (4.7-12.5) % Eos % (Auto) 0 L (0.7-5.8) Baso % (Auto) 0.1 (0.1-1.2) % Neut # (Auto) 13.12 H (1.56-6.13) K/mm3 Lymph # (Auto) 1.02 L (1.18-3.74) K/mm3 [place] # (Auto) 1.49 H (0.24-0.36) K/mm3 Eos # (Auto) 0.00 L (0.04-0.36) K/mm3 Baso # (Auto) 0.02 (0.01-0.08) K/mm3 Manual Slide Review Abnormal smear PT (9.7-12.0) SECONDS INR APTT 29 (22-31) SECONDS Sodium 136 (136-145) mEq/L Potassium 3.5 (3.5-5.1) mEq/L Chloride 104 (98-107) mEq/L Carbon Dioxide 19 L (21-32) mEq/L Anion Gap 16.5 H (5-15) BUN 7 (7-18) mg/dL Creatinine 1.3 H (0.55-1.02) mg/dL Est Cr Clr Drug Dosing 56.15 mL/min Estimated GFR (MDRD) 51 (>60) mL/min BUN/Creatinine Ratio 5.4 L (14-18) Glucose 128 H (74-106) mg/dL Lactic Acid (0.4-2.0) mmol/L Calcium 8.9 (8.5-10.1) mg/dL Magnesium (1.8-2.4) mg/dl Total Bilirubin (0.2-1.0) mg/dL AST (15-37) U/L ALT (14-59) U/L Alkaline Phosphatase (46-116) U/L Total Protein (6.4-8.2) g/dl Albumin (3.4-5.0) g/dl Globulin gm/dL Albumin/Globulin Ratio (1-2) Urine Color (Yellow) Urine Appearance (Clear) Urine pH (5.0-8.0) Ur Specific [place] (1.005-1.030) Urine Protein (Negative) Urine Glucose (UA) (Negative) Urine Ketones (Negative) Urine Occult Blood (Negative) Urine Nitrite (Negative) Urine Bilirubin (Negative) Urine Urobilinogen (0.2-1.0) Ur Leukocyte Esterase (Negative) Urine RBC (0-5) /hpf Urine WBC (0-5) /hpf Urine WBC Clumps (NOT SEEN) /hpf Ur Squamous Epith Cells (0-5) /hpf Urine Bacteria (FEW) /hpf Urine Mucus (FEW) /hpf Meds: Medications Generic Name Dose Route Start Last Admin Trade Name Freq PRN Reason Stop Dose Admin Acetaminophen 650 mg 11/17/19 08:44 Tylenol PO Q4H PRN Pain (Mild 1-3)/fever Hydrocodone Bitart/Acetaminophen 1 tab 11/17/19 08:44 11/17/19 11:08 Horner 325-5 Mg PO 1 tab Q4H PRN Administration Pain (moderate 4-6) Clonazepam 0.5 mg 11/17/19 21:00 Klonopin PO BEDTIME BABATUNDE Clonidine HCl 0.1 mg 11/17/19 09:00 11/17/19 09:50 Catapres PO 0.1 mg DAILY BABATUNDE Administration Hydromorphone HCl 0.5 mg 11/17/19 05:31 11/17/19 05:51 Dilaudid IVPUSH 0.5 mg Q2H PRN Administration Pain Potassium Chloride/Sodium Chloride 1,000 mls @ 150 mls/hr 11/17/19 03:00 06:47 Normal Saline With 40 Meq Kcl IV 150 mls/hr ASDIRECTED BABATUNDE Administration Levofloxacin/Dextrose 750 mg/ 150 mls @ 100 mls/hr 11/17/19 23:00 Premix IV Q24H [facility] Insulin Human Lispro 0 unit 11/17/19 16:00 Humalog SUBCUT BIDAC [facility] Protocol Ketorolac Tromethamine 30 mg 11/17/19 08:44 Toradol IV Q6H PRN Pain (moderate 4-6) Levothyroxine Sodium 75 mcg 11/18/19 08:00 Levothyroxine PO QAM [facility] Miscellaneous Information 0 ea 11/18/19 09:00 Remove Patch TRDERM DAILY [facility] Nicotine 14 mg 11/17/19 09:00 11/17/19 09:50 Habitrol TRDERM Not Given DAILY [facility] Ondansetron HCl 4 mg 11/17/19 02:55 11/17/19 05:23 Zofran IVPUSH 4 mg Q6H PRN Administration Nausea Cariprazine 0 each 11/17/19 09:00 11/17/19 09:50 Hydrochloride [ PO Not Given Vraylar] 3 Mg DAILY [facility] [place] Carbonate 450 each 11/17/19 09:00 11/17/19 09:50 450 Mg PO Not Given BID [facility] Prazosin Hcl [ 0 each 11/17/19 08:47 Prazosin] 10 Mg PO BEDTIME PRN NIGHTMARES Sodium Chloride 10 ml 11/16/19 20:19 11/16/19 23:40 Saline Flush FLUSH 10 ml ASDIRECTED PRN Administration Keep Vein Open Trazodone HCl 50 mg 11/17/19 08:46 Trazodone PO BEDTIME PRN Insomnia Discontinued Medications Generic Name Dose Route Start Last Admin Trade Name Freq PRN Reason Stop Dose Admin Acetaminophen 650 mg 11/17/19 05:14 11/17/19 05:23 Tylenol PO 11/17/19 05:15 650 mg NOW ONE Administration Sodium Chloride 1,000 mls @ 999 mls/hr 11/16/19 20:30 11/16/19 20:57 Normal Saline IV 999 mls/hr ASDIRECTED BABATUNDE Administration Lactated Ringer's 1,000 mls @ 999 mls/hr 11/16/19 22:00 11/16/19 21:57 Ringers, Lactated IV 999 mls/hr ASDIRECTED BABATUNDE Administration Ceftriaxone Sodium 1 gm/ 100 mls @ 200 mls/hr 11/16/19 22:22 11/17/19 10:07 Sodium Chloride IV 11/16/19 22:51 Not Given ONETIME ONE Levofloxacin/Dextrose 750 mg/ 150 mls @ 100 mls/hr 11/16/19 22:39 11/16/19 23 :14 Premix IV 11/17/19 00:08 100 mls/hr ONETIME ONE Administration Potassium Chloride/Sodium Chloride 1,000 mls @ 150 mls/hr 11/16/19 23:30 00:25 Normal Saline With 40 Meq Kcl IV 150 mls/hr ASDIRECTED BABATUNDE Administration Sodium Chloride 500 mls @ 999 mls/min 11/17/19 09:36 11/17/19 09:48 Normal Saline IV 11/17/19 09:37 999 mls/min .BOLUS ONE Administration Iopamidol 100 ml 11/16/19 22:40 11/16/19 23:40 Isovue-300 (61%) IVPUSH 11/16/19 22:41 100 ml ONETIME ONE Administration Ketorolac Tromethamine 30 mg 11/16/19 21:38 11/16/19 21:48 Toradol IVPUSH 11/16/19 21:39 30 mg ONETIME ONE Administration Ondansetron HCl 4 mg 11/16/19 20:22 11/16/19 20:58 Zofran IVPUSH 11/16/19 20:23 4 mg ONETIME ONE Administration Ondansetron HCl 4 mg 11/17/19 00:10 11/17/19 00:20 Zofran IVPUSH 11/17/19 00:11 4 mg ONETIME ONE Administration - Re-Assessments/Exams Free Text/Narrative Re-Assessment/Exam: 11/16/19 22:43 Hematology showed a WBC of 16.61, potassium low at 3.2, anion gap elevated at 19.2, creatinine elevated at 1.3. Urinalysis was grossly positive for a urinary tract infection. Influenza screen was negative. Patient does have bilateral CVA tenderness and has had significant fevers for the last 2 days. Patient verbalizes low back pain for approximately 1 week. While waiting for lab results, her fever did increase to 102.8. Toradol 30 mg IV was given at that time. I have ordered a lactic acid, and blood cultures as well as a CT of the abdomen pelvis with contrast. After cultures are drawn we will start on Levaquin IV. 11/17/19 00:14 Lactic acid was normal at 1.0. CT of the abdomen was negative for renal abscesses, however does show a bilateral pyelonephritis. Patient has received 750 mg of IV Levaquin at this point. She does continue to have nausea with some vomiting. I have ordered another dose of Zofran IV. Start IV fluids of NS with 40 of KCl at 150 ml/hr. Patient will be admitted for observation as I do not feel that she would tolerate oral antibiotics at this time due to her nausea. Case discussed with Dr. Melisa MD. Bridge orders have been written for admission under Dr. Howell Departure - Departure Time of Disposition: 00:14 Disposition: Refer to Observation Condition: Fair Clinical Impression: Pyelonephritis - Discharge Information Sepsis Event Note - Evaluation Sepsis Screening Result: Possible Sepsis Risk - Focused Exam Vital Signs: Vital Signs Temp Temp Pulse Pulse Resp BP BP 11/17/19 07:34 97.3 F 117 H 28 H 147/103 H 11/17/19 05:23 102.5 F H 11/17/19 05:11 102.5 F H 140 H 11/17/19 05:04 134 H 28 H 141/85 H 11/17/19 01:23 128/80 11/17/19 01:17 115 H 28 H 11/17/19 00:01 98.6 F 107 H 20 113/73 Pulse Ox 11/17/19 07:34 99 11/17/19 05:23 11/17/19 05:11 11/17/19 05:04 98 11/17/19 01:23 11/17/19 01:17 100 11/17/19 00:01 97 Date Exam was Performed: 11/17/19 Time Exam was Performed: 11:13 - My Orders Last 24 Hours: My Active Orders 11/16/19 20:02 Orthostatic Vital Signs [RC] ASDIRECTED 11/16/19 20:19 Sodium Chloride 0.9% [Saline Flush] 10 ml FLUSH ASDIRECTED PRN Peripheral IV Insertion Adult [OM.PC] Stat 11/16/19 20:20 EKG Documentation Completion [RC] STAT 11/16/19 21:54 CULTURE URINE [RM] Stat 11/16/19 22:28 Blood Culture x2 Reflex Set [OM.PC] Stat 11/16/19 22:50 CULTURE BLOOD [BC] Stat 11/16/19 22:57 CULTURE BLOOD [BC] Stat - Assessment/Plan Last 24 Hours: My Active Orders 11/16/19 20:02 Orthostatic Vital Signs [RC] ASDIRECTED 11/16/19 20:19 Sodium Chloride 0.9% [Saline Flush] 10 ml FLUSH ASDIRECTED PRN Peripheral IV Insertion Adult [OM.PC] Stat 11/16/19 20:20 EKG Documentation Completion [RC] STAT 11/16/19 21:54 CULTURE URINE [RM] Stat 11/16/19 22:28 Blood Culture x2 Reflex Set [OM.PC] Stat 11/16/19 22:50 CULTURE BLOOD [BC] Stat 11/16/19 22:57 CULTURE BLOOD [BC] Stat
[2019-11-16] MEDS ORDERED: Ketorolac 30 MG/ML SDV IVPUSH ONE (21:38)
[2019-11-16] MEDS ORDERED: Lactated Ringers 1,000 ML IV SCH (22:00)
[2019-11-16] MEDS ORDERED: cefTRIAXone 1 GM in Sodium Chloride 0.9% 100 ML IV ONE (22:22)
[2019-11-16] MEDS ORDERED: Levofloxacin/Dextrose 5%-Water 750 MG in Premix Bag 1 BAG IV ONE (22:39)
[2019-11-16] MEDS ORDERED: Iopamidol 612 MG/ML 100 ML Bottle IVPUSH ONE (22:40)
[2019-11-16] MEDS ORDERED: Sodium Chloride 0.9% with KCl 1,000 ML IV SCH (23:30)
[2019-11-17] MEDS ORDERED: Ondansetron 4 MG/2 ML SDV IVPUSH ONE (00:10)
[2019-11-17] MEDS ORDERED: Acetaminophen 325 MG Tab PO ONE (05:14)
[2019-11-17] MEDS: Ondansetron 4 MG/2 ML SDV IVPUSH PRN ×2 (05:23→19:39)
[2019-11-17] MEDS ORDERED: HYDROmorphone 0.5 MG/0.5 ML Syringe IVPUSH PRN (05:31)
[2019-11-17] MEDS: Sodium Chloride 0.9% with KCl 1,000 ML IV SCH ×3 (06:47→21:32)
--- NOTE | 2019-11-17 07:33 | CT ---
CT abdomen and pelvis Technique: Multiple axial sections were obtained from above the dome of the diaphragm inferiorly through the pubic symphysis. Intravenous contrast was utilized. No oral contrast was given. Comparison: CT abdomen and pelvis exam of 04/19/17. Findings: Visualized lung bases show nothing acute. Liver and spleen show no focal parenchymal abnormality. Adrenal glands show no nodule. Pancreas is within normal limits. Gallbladder contains no calcified gallstones. Aorta shows no aneurysm. No retroperitoneal adenopathy or mesenteric abnormalities are seen. No pelvic mass or adenopathy is identified. Appendix is seen which is normal in size. Kidneys show slight haziness. Findings may relate to the amount of contrast enhancement but difficult to exclude pyelonephritis. Delayed images show contrast excretion from both kidneys into the bladder. Impression: 1. Slightly abnormal enhancement of the kidneys. Uncertain if this is due to bilateral pyelonephritis or due to contrast administration. Please correlate with the patient's symptoms. 2. No additional abnormality is appreciated on CT study of the abdomen and pelvis. Diagnostic code #3 This report was dictated in [place] Standard Time I agree with preliminary report from [facility], finalized on 11/17/19, 1:06 AM Central Time
[2019-11-17] MEDS ORDERED: PRAZOSIN HCL 5 MG PO PRN ×2 (08:47→13:22)
--- NOTE | 2019-11-17 08:54 | PCM.HP.2 ---
H&P History of Present Illness - General Date of Service: 11/17/19 Admit Problem/Dx: Admission Diagnosis/Problem Admission Diagnosis/Problem Pyelonephritis Source of Information: Patient, Old Records, Provider, RN, RN Notes Reviewed History Limitations: Reports: No Limitations - History of Present Illness Initial Comments - Free Text/Narative: Uvaldo Hazel is a 24 yo female who presented to our ED on the evening of 2019 with fever, cough, congestion, vomiting, diarrhea, which have all been present for the past 2 days. She has been febrile at home with a temperature of 103 and is treated that with Tylenol. Reports any oral intake causes her to vomit. She denies any abdominal pain. Does report that multiple family members in the house have had respiratory symptoms but no vomiting or diarrhea. She does have a history of asthma but denies any current symptoms. She had a cardiac loop recorder placed in October due to an episode of "heart block". In the ED temp was 100.3. Pulse 107. Respirations 20. Blood pressure 113/73. Pulse ox 97%. WBC is elevated at 16.61. Hemoglobin 13.8. Hematocrit 41.4. Platelets are low at 221,000. Neutrophils are elevated at 84.1%. Sodium is good at 138. Potassium is low at 3.2. Anion gap is very high at 19.2. BUN is 7. Creatinine 1.3. GFR is 51. Glucose 130. Magnesium is 1.9. Bilirubin 0.8. AST is 15, ALT 29, alkaline phosphatase 74. Protein is 8.2. Albumin 3.4. INR is 1.22. Lactic acid is 1.0. UA is positive with cloudy urine, 3+ protein, 2+ occult blood, positive nitrite, 2+ urobilinogen, 3+ leukocyte esterase, 5-10 RBCs, 75-100 WBCs, few WBC clumps, 5-10 squamous epithelial cells , many bacteria. She is given two 1 L boluses and started on NS with 40 mEq of KCl. She started on Levaquin and given Toradol for pain as well as Zofran. Blood cultures were obtained and are pending. Urine cultures were obtained and are pending. CT abdomen is in interpreted by Dr. Ford as "1. Slightly abnormal enhancement of the kidneys. Uncertain if this is due to bilateral pyelonephritis or due to contrast administration. Please correlate with the patient's symptoms. 2. No additional abnormalities appreciated CT study of the abdomen and pelvis." She carries a history of: Hypertension, "heart block", asthma, GERD, LEEP procedure for cervical dysplasia in November 2018, Asperger syndrome, strokelike symptoms with neurological deficits in 2014, anxiety, autism, bipolar, depression, mood swings, PTSD, suicide attempts, suicidal ideation, type II DM, hypothyroidism, obesity. She is a current daily smoker. Her PCP is Dr. Linda Ureña. She is a full code. She subsequently admitted to the floor observation status for management of her pyelonephritis. Bilateral Back Pain Score (Numeric/FACES): 4 - Related Data Allergies/Adverse Reactions: Allergies Allergy/AdvReac Type Severity Reaction Status Date / Time albuterol Allergy Facial Verified 11/17/19 03:05 Swelling amoxicillin [From Augmentin] Allergy Rash Verified 11/17/19 03:05 clavulanic acid Allergy Rash Verified 11/17/19 03:05 [From Augmentin] Home Medications: Home Meds ClonazePAM [KlonoPIN] 0.5 mg PO BEDTIME 07/10/19 [History] Levothyroxine 75 mcg PO QAM 07/10/19 [History] Prazosin HCl [Prazosin] 6 - 8 mg PO BEDTIME PRN 07/10/19 [History] metFORMIN [Glucophage] 500 mg PO BEDTIME 07/10/19 [History] traZODone HCl [Trazodone HCl] 50 mg PO BEDTIME PRN 07/10/19 [History] [place] Carbonate [Eskalith CR] 450 mg PO BID 11/16/19 [History] Cariprazine Hydrochloride [Vraylar] 3 mg PO DAILY 11/17/19 [History] cloNIDine [Catapres] 0.1 mg PO DAILY 11/17/19 [History] Past Medical History HEENT History: Reports: Impaired Vision Other HEENT History: Wears glasses but did not bring them with Cardiovascular History: Reports: Hypertension, Other (See Below) Other Cardiovascular History: heart block wears a loop recorder for this Respiratory History: Reports: Asthma Other Respiratory History: not on inhalers or nebs when pt asked about this. Gastrointestinal History: Reports: GERD [employer]CIAL [employer] ADVISER History: Reports: Other (See Below) Other OB/BYN History: LEEP procedure for cervical dysplasia in November of 2018 Neurological History: Reports: Other (See Below) Other Neuro History: aspberger syndrome, autism, stroke-like symptoms with neurological deficits in 2014 Psychiatric History: Reports: Anxiety, Autism, Bipolar, Depression, Mood Swings , PTSD, Suicide Attempt, Suicidal Ideation Endocrine/Metabolic History: Reports: Diabetes, Type II, Hypothyroidism, Obesity /BMI 30+ - Past Surgical History HEENT Surgical History: Reports: None Cardiovascular Surgical History: Reports: Other (See Below) Other Cardiovascular Surgeries/Procedures: loop recorder placed end of oct Respiratory Surgical History: Reports: None GI Surgical History: Reports: None Female Surgical History: Reports: LEEP Endocrine Surgical History: Reports: None Neurological Surgical History: Reports: None Dermatological Surgical History: Reports: None Social & Family History - Family History Family Medical History: Noncontributory HEENT: Reports: None Cardiac: Reports: None Respiratory: Reports: None GI: Reports: None : Reports: None OBGYN: Reports: None Musculoskeletal: Reports: None Neurological: Reports: None Psychiatric: Reports: None Endocrine/Metabolic: Reports: Diabetes, type II, Obesity/MBI 30+ Hematologic: Reports: None Immunologic: Reports: None - Tobacco Use Smoking Status *Q: Current Every Day Smoker Years of Tobacco use: 1 Packs/Tins Daily: 1 Used Tobacco, but Quit: No Second Hand Smoke Exposure: No - Caffeine Use Caffeine Use: Reports: Coffee, Soda Other Caffeine Use: 2 cans of pop a day and 1 cup of coffee a day. - Recreational Drug Use Recreational Drug Use: No - Living Situation & Occupation Living situation: Reports: Single, with Family ( lives with her parents.) Occupation: Employed ([employer]) H&P Review of Systems - Review of Systems: Review Of Systems: See Below General: Reports: Fever, Chills, Malaise, Weakness, Fatigue, Diaphoresis, Decreased Appetite HEENT: Reports: No Symptoms. Denies: Headaches, Sore Throat Pulmonary: Reports: Shortness of Breath, Cough. Denies: Wheezing, Pleuritic Chest Pain, Sputum Cardiovascular: Reports: Blood Pressure Problem. Denies: Chest Pain, Palpitations, Dyspnea on Exertion, Edema, Lightheadedness Gastrointestinal: Reports: Diarrhea, Nausea, Vomiting. Denies: Abdominal Pain, Constipation Genitourinary: Reports: No Symptoms. Denies: Pain Musculoskeletal: Reports: No Symptoms Skin: Reports: No Symptoms. Denies: Cyanosis Psychiatric: Reports: No Symptoms. Denies: Confusion Neurological: Reports: No Symptoms Hematologic/Lymphatic: Reports: No Symptoms Immunologic: Reports: No Symptoms Exam - Exam Exam: See Below - Vital Signs Vital Signs: Last Vital Signs Temp 97.3 F 11/17/19 07:34 Pulse 117 H 11/17/19 07:34 Resp 28 H 11/17/19 07:34 BP 147/103 H 11/17/19 07:34 Pulse Ox 99 11/17/19 07:34 Weight: 273 lb 14.4 oz - Exam Quality Assessment: DVT Prophylaxis General: Alert, Oriented, Cooperative, Mild Distress HEENT: Conjunctiva Clear, EACs Clear, Hearing Intact, Mucosa Moist & [place], Posterior Pharynx Clear, PERRLA Neck: Supple, Trachea Midline Lungs: Clear to Auscultation, Normal Respiratory Effort Cardiovascular: Regular Rhythm, Tachycardia GI/Abdominal Exam: Normal Bowel Sounds, Soft, Non-Tender, No Distention (Female) Exam: Deferred Rectal (Female) Exam: Deferred Back Exam: Normal Inspection, Full Range of Motion Extremities: Normal Inspection, Normal Range of Motion, Non-Tender, No Pedal Edema, Normal Capillary Refill Skin: Warm, Dry, Intact Neurological: Cranial Nerves Intact (grossly ) Neuro Extensive - Mental Status: Alert, Oriented x3 - Patient Data Lab Results Last 24 hrs: Laboratory Results - last 24 hr 11/16/19 11/16/19 11/16/19 Range/Units 20:50 20:50 20:50 WBC 16.61 H (3.98-10.04) K/mm3 RBC 4.49 (3.98-5.22) M/mm3 Hgb 13.8 (11.2-15.7) gm/dl Hct 41.4 (34.1-44.9) % MCV 92.2 (79.4-94.8) fl MCH 30.7 (25.6-32.2) pg MCHC 33.3 (32.2-35.5) g/dl RDW Std Deviation 43.0 (36.4-46.3) fL Plt Count 221 D (182-369) K/mm3 MPV 11.0 (9.4-12.3) fl Neut % (Auto) 84.1 H (34.0-71.1) % Lymph % (Auto) 8.2 L (19.3-51.7) % [place] % (Auto) 7.6 (4.7-12.5) % Eos % (Auto) 0 L (0.7-5.8) Baso % (Auto) 0.1 (0.1-1.2) % Neut # (Auto) 13.96 H (1.56-6.13) K/mm3 Lymph # (Auto) 1.36 (1.18-3.74) K/mm3 [place] # (Auto) 1.27 H (0.24-0.36) K/mm3 Eos # (Auto) 0.00 L (0.04-0.36) K/mm3 Baso # (Auto) 0.02 (0.01-0.08) K/mm3 Manual Slide Review Abnormal smear PT (9.7-12.0) SECONDS INR APTT (22-31) SECONDS Sodium 138 (136-145) mEq/L Potassium 3.2 L (3.5-5.1) mEq/L Chloride 101 (98-107) mEq/L Carbon Dioxide 21 (21-32) mEq/L Anion Gap 19.2 H (5-15) BUN 7 (7-18) mg/dL Creatinine 1.3 H (0.55-1.02) mg/dL Est Cr Clr Drug Dosing 56.15 mL/min Estimated GFR (MDRD) 51 (>60) mL/min BUN/Creatinine Ratio 5.4 L (14-18) Glucose 130 H (74-106) mg/dL Lactic Acid (0.4-2.0) mmol/L Calcium 9.6 (8.5-10.1) mg/dL Magnesium 1.9 (1.8-2.4) mg/dl Total Bilirubin 0.8 (0.2-1.0) mg/dL AST 15 (15-37) U/L ALT 29 (14-59) U/L Alkaline Phosphatase 74 (46-116) U/L Total Protein 8.2 (6.4-8.2) g/dl Albumin 3.4 (3.4-5.0) g/dl Globulin 4.8 gm/dL Albumin/Globulin Ratio 0.7 L (1-2) Urine Color (Yellow) Urine Appearance (Clear) Urine pH (5.0-8.0) Ur Specific [place] (1.005-1.030) Urine Protein (Negative) Urine Glucose (UA) (Negative) Urine Ketones (Negative) Urine Occult Blood (Negative) Urine Nitrite (Negative) Urine Bilirubin (Negative) Urine Urobilinogen (0.2-1.0) Ur Leukocyte Esterase (Negative) Urine RBC (0-5) /hpf Urine WBC (0-5) /hpf Urine WBC Clumps (NOT SEEN) /hpf Ur Squamous Epith Cells (0-5) /hpf Urine Bacteria (FEW) /hpf Urine Mucus (FEW) /hpf 11/16/19 11/16/19 11/16/19 Range/Units 21:54 22:50 22:50 WBC (3.98-10.04) K/mm3 RBC (3.98-5.22) M/mm3 Hgb (11.2-15.7) gm/dl Hct (34.1-44.9) % MCV (79.4-94.8) fl MCH (25.6-32.2) pg MCHC (32.2-35.5) g/dl RDW Std Deviation (36.4-46.3) fL Plt Count (182-369) K/mm3 MPV (9.4-12.3) fl Neut % (Auto) (34.0-71.1) % Lymph % (Auto) (19.3-51.7) % [place] % (Auto) (4.7-12.5) % Eos % (Auto) (0.7-5.8) Baso % (Auto) (0.1-1.2) % Neut # (Auto) (1.56-6.13) K/mm3 Lymph # (Auto) (1.18-3.74) K/mm3 [place] # (Auto) (0.24-0.36) K/mm3 Eos # (Auto) (0.04-0.36) K/mm3 Baso # (Auto) (0.01-0.08) K/mm3 Manual Slide Review PT 13.1 H (9.7-12.0) SECONDS INR 1.22 APTT (22-31) SECONDS Sodium (136-145) mEq/L Potassium (3.5-5.1) mEq/L Chloride (98-107) mEq/L Carbon Dioxide (21-32) mEq/L Anion Gap (5-15) BUN (7-18) mg/dL Creatinine (0.55-1.02) mg/dL Est Cr Clr Drug Dosing mL/min Estimated GFR (MDRD) (>60) mL/min BUN/Creatinine Ratio (14-18) Glucose (74-106) mg/dL Lactic Acid 1.0 (0.4-2.0) mmol/L Calcium (8.5-10.1) mg/dL Magnesium (1.8-2.4) mg/dl Total Bilirubin (0.2-1.0) mg/dL AST (15-37) U/L ALT (14-59) U/L Alkaline Phosphatase (46-116) U/L Total Protein (6.4-8.2) g/dl Albumin (3.4-5.0) g/dl Globulin gm/dL Albumin/Globulin Ratio (1-2) Urine Color Yellow (Yellow) Urine Appearance Cloudy H (Clear) Urine pH 6.5 (5.0-8.0) Ur Specific [place] 1.020 (1.005-1.030) Urine Protein 3+ H (Negative) Urine Glucose (UA) Negative (Negative) Urine Ketones Negative (Negative) Urine Occult Blood 2+ H (Negative) Urine Nitrite Positive H (Negative) Urine Bilirubin Negative (Negative) Urine Urobilinogen 2.0 H (0.2-1.0) Ur Leukocyte Esterase 3+ H (Negative) Urine RBC 5-10 H (0-5) /hpf Urine WBC 75-100 H (0-5) /hpf Urine WBC Clumps Few (NOT SEEN) /hpf Ur Squamous Epith Cells 5-10 H (0-5) /hpf Urine Bacteria Many H (FEW) /hpf Urine Mucus Few (FEW) /hpf 11/16/19 11/17/19 11/17/19 Range/Units 22:50 05:53 05:53 WBC 15.65 H (3.98-10.04) K/mm3 RBC 4.00 (3.98-5.22) M/mm3 Hgb 12.3 D (11.2-15.7) gm/dl Hct 36.7 (34.1-44.9) % MCV 91.8 (79.4-94.8) fl MCH 30.8 (25.6-32.2) pg MCHC 33.5 (32.2-35.5) g/dl RDW Std Deviation 42.4 (36.4-46.3) fL Plt Count 165 L (182-369) K/mm3 MPV 10.8 (9.4-12.3) fl Neut % (Auto) 83.9 H (34.0-71.1) % Lymph % (Auto) 6.5 L (19.3-51.7) % [place] % (Auto) 9.5 (4.7-12.5) % Eos % (Auto) 0 L (0.7-5.8) Baso % (Auto) 0.1 (0.1-1.2) % Neut # (Auto) 13.12 H (1.56-6.13) K/mm3 Lymph # (Auto) 1.02 L (1.18-3.74) K/mm3 [place] # (Auto) 1.49 H (0.24-0.36) K/mm3 Eos # (Auto) 0.00 L (0.04-0.36) K/mm3 Baso # (Auto) 0.02 (0.01-0.08) K/mm3 Manual Slide Review Abnormal smear PT (9.7-12.0) SECONDS INR APTT 29 (22-31) SECONDS Sodium 136 (136-145) mEq/L Potassium 3.5 (3.5-5.1) mEq/L Chloride 104 (98-107) mEq/L Carbon Dioxide 19 L (21-32) mEq/L Anion Gap 16.5 H (5-15) BUN 7 (7-18) mg/dL Creatinine 1.3 H (0.55-1.02) mg/dL Est Cr Clr Drug Dosing 56.15 mL/min Estimated GFR (MDRD) 51 (>60) mL/min BUN/Creatinine Ratio 5.4 L (14-18) Glucose 128 H (74-106) mg/dL Lactic Acid (0.4-2.0) mmol/L Calcium 8.9 (8.5-10.1) mg/dL Magnesium (1.8-2.4) mg/dl Total Bilirubin (0.2-1.0) mg/dL AST (15-37) U/L ALT (14-59) U/L Alkaline Phosphatase (46-116) U/L Total Protein (6.4-8.2) g/dl Albumin (3.4-5.0) g/dl Globulin gm/dL Albumin/Globulin Ratio (1-2) Urine Color (Yellow) Urine Appearance (Clear) Urine pH (5.0-8.0) Ur Specific [place] (1.005-1.030) Urine Protein (Negative) Urine Glucose (UA) (Negative) Urine Ketones (Negative) Urine Occult Blood (Negative) Urine Nitrite (Negative) Urine Bilirubin (Negative) Urine Urobilinogen (0.2-1.0) Ur Leukocyte Esterase (Negative) Urine RBC (0-5) /hpf Urine WBC (0-5) /hpf Urine WBC Clumps (NOT SEEN) /hpf Ur Squamous Epith Cells (0-5) /hpf Urine Bacteria (FEW) /hpf Urine Mucus (FEW) /hpf Result Diagrams: 11/17/19 05:53 11/17/19 05:53 Alejandro Results Last 24 hrs: Microbiology 11/16/19 21:54 Urine Culture - Preliminary Urine, Clean Catch Gram Negative Rods 11/16/19 21:30 Influenza Type A Antigen Screen - Final Nasal, Unspecified NEGATIVE INFLUENZA A VIRUS AG REFERENCE RANGE: NEGATIVE Influenza Type B Antigen Screen - Final NEGATIVE INFLUENZA B VIRUS AG REFERENCE RANGE: NEGATIVE Sepsis Event Note - Evaluation Sepsis Screening Result: Sepsis Risk - Focused Exam Vital Signs: Vital Signs Temp Temp Pulse Pulse Resp BP BP 11/17/19 07:34 97.3 F 117 H 28 H 147/103 H 11/17/19 05:23 102.5 F H 11/17/19 05:11 102.5 F H 140 H 11/17/19 05:04 134 H 28 H 141/85 H 11/17/19 01:23 128/80 11/17/19 01:17 115 H 28 H 11/17/19 00:01 98.6 F 107 H 20 113/73 Pulse Ox 11/17/19 07:34 99 11/17/19 05:23 11/17/19 05:11 11/17/19 05:04 98 11/17/19 01:23 11/17/19 01:17 100 11/17/19 00:01 97 Date Exam was Performed: 11/17/19 Time Exam was Performed: 14:32 - Problem List (1) Pyelonephritis SNOMED Code(s): 75533125 ICD Code: N12 - TUBULO-INTERSTITIAL NEPHRITIS, NOT SPCF ACUTE OR CHRONIC Status: Acute Priority: High Current Visit: Yes (2) Hypertension SNOMED Code(s): 53963425 ICD Code: I10 - ESSENTIAL (PRIMARY) HYPERTENSION Status: Chronic Priority : Medium Current Visit: No Qualifiers: Hypertension type: unspecified Qualified Code(s): I10 - Essential (primary ) hypertension (3) HB (heart block) SNOMED Code(s): 471762601 ICD Code: I45.9 - CONDUCTION DISORDER, UNSPECIFIED Status: Chronic Priority: Medium Current Visit: No (4) Status post placement of implantable loop recorder SNOMED Code(s): 298713675, 435510004, 947568974 ICD Code: Z95.818 - PRESENCE OF OTHER CARDIAC IMPLANTS AND GRAFTS Status: Chronic Priority: Low Current Visit: No (5) Asthma SNOMED Code(s): 707194945 ICD Code: J45.909 - UNSPECIFIED ASTHMA, UNCOMPLICATED Status: Chronic Priority: Low Current Visit: No Qualifiers: Asthma severity: unspecified severity Asthma persistence: unspecified Asthma complication type: unspecified Qualified Code(s): J45.909 - Unspecified asthma, uncomplicated (6) GERD (gastroesophageal reflux disease) SNOMED Code(s): 812646715 ICD Code: K21.9 - GASTRO-ESOPHAGEAL REFLUX DISEASE WITHOUT ESOPHAGITIS Status: Chronic Priority: Low Current Visit: No Qualifiers: Esophagitis presence: esophagitis presence not specified Qualified Code(s) : K21.9 - Gastro-esophageal reflux disease without esophagitis (7) S/P LEEP of cervix SNOMED Code(s): 280891318142423, 52686052, 240601484298856 ICD Code: Z98.890 - OTHER SPECIFIED POSTPROCEDURAL STATES Status: Chronic Priority: Low Current Visit: No (8) Asperger syndrome SNOMED Code(s): 43456659 ICD Code: F84.5 - ASPERGER'S SYNDROME Status: Chronic Priority: Low Current Visit: No (9) Stroke-like symptoms SNOMED Code(s): 525851705 ICD Code: R29.90 - UNSPECIFIED SYMPTOMS AND SIGNS INVOLVING THE NERVOUS SYSTEM Status: Chronic Priority: Medium Current Visit: Yes Problem Details: in 2015 (10) Autism SNOMED Code(s): 263809351 ICD Code: F84.0 - AUTISTIC DISORDER Status: Chronic Priority: Medium Current Visit: No (11) Mood swings SNOMED Code(s): 68783924 ICD Code: R45.86 - EMOTIONAL LABILITY Status: Chronic Priority: Low Current Visit: No (12) PTSD (post-traumatic stress disorder) SNOMED Code(s): 75550702 ICD Code: F43.10 - POST-TRAUMATIC STRESS DISORDER, UNSPECIFIED Status: Chronic Priority: Medium Current Visit: No (13) History of suicide attempt SNOMED Code(s): 834158906, 490788235 ICD Code: Z91.5 - PERSONAL HISTORY OF SELF-HARM Status: Chronic Priority : Low Current Visit: No (14) History of suicidal ideation SNOMED Code(s): 693534068 ICD Code: Z86.59 - PERSONAL HISTORY OF OTHER MENTAL AND BEHAVIORAL DISORDERS Status: Chronic Priority: Low Current Visit: No (15) Type II diabetes mellitus SNOMED Code(s): 49011753 ICD Code: E11.9 - TYPE 2 DIABETES MELLITUS WITHOUT COMPLICATIONS Status: Chronic Priority: Medium Current Visit: Yes Qualifiers: Diabetes mellitus [facility] insulin use: unspecified [facility] insulin use status Diabetes mellitus complication status: with other specified complication Qualified Code(s): E11.69 - Type 2 diabetes mellitus with other specified complication (16) Obesity SNOMED Code(s): 217384648, 368038076 ICD Code: E66.9 - OBESITY, UNSPECIFIED Status: Chronic Priority: Low Current Visit: No Qualifiers: Obesity type: unspecified obesity type Obesity classification: adult class 3 (BMI >= 40) Serious obesity comorbidity presence: unspecified whether serious comorbidity present Body mass index: BMI 45.0-49.9 Qualified Code(s) : E66.01 - Morbid (severe) obesity due to excess calories; Z68.42 - Body mass index (BMI) 45.0-49.9, adult (17) Anxiety SNOMED Code(s): 67662399 ICD Code: F41.9 - ANXIETY DISORDER, UNSPECIFIED Status: Chronic Priority : Low Current Visit: No (18) Bipolar disorder SNOMED Code(s): 51045544 ICD Code: F31.9 - BIPOLAR DISORDER, UNSPECIFIED Status: Chronic Priority : Medium Current Visit: Yes (19) Depressive disorder SNOMED Code(s): 09737307 ICD Code: F32.9 - MAJOR DEPRESSIVE DISORDER, SINGLE EPISODE, UNSPECIFIED Status: Chronic Priority: Low Current Visit: No (20) Current smoker SNOMED Code(s): 29186071 ICD Code: F17.200 - NICOTINE DEPENDENCE, UNSPECIFIED, UNCOMPLICATED Status : Chronic Priority: Medium Current Visit: Yes (21) Acute renal injury SNOMED Code(s): 87889926, 19602677 ICD Code: N17.9 - ACUTE KIDNEY FAILURE, UNSPECIFIED Status: Acute Priority: High Current Visit: Yes (22) High anion gap metabolic acidosis SNOMED Code(s): 87156761 ICD Code: E87.2 - ACIDOSIS Status: Acute Priority: High Current Visit: Yes Problem List Initiated/Reviewed/Updated: Yes Orders Last 24hrs: Active Orders 24 hr Category Date Time Status Patient Status [ADT] Routine ADT 11/17/19 08:43 Active Activity as Tolerated [RC] .Routine Care 11/17/19 02:55 Active Cardiac Monitoring [RC] CONTINUOUS Care 11/17/19 08:44 Active EKG Documentation Completion [RC] STAT Care 11/16/19 20:20 Active Height and Weight [RC] DAILY Care 11/17/19 08:44 Active Intake and Output [RC] QSHIFT Care 11/17/19 08:44 Active Orthostatic Vital Signs [RC] ASDIRECTED Care 11/16/19 20:02 Inactive Oxygen Therapy [RC] PRN Care 11/17/19 08:44 Active Pulse Oximetry [RC] PRN Care 11/17/19 08:45 Active Up With Assistance [RC] ASDIRECTED Care 11/17/19 08:44 Active VTE/DVT Education [RC] PER UNIT ROUTINE Care 11/17/19 08:44 Active Vital Signs [RC] Q4H Care 11/17/19 08:44 Active Consult to Spiritual Care [CONS] Routine Cons 11/17/19 08:44 Active Clear Liquid Diet [DIET] Diet 11/17/19 Breakfast Active BASIC METABOLIC PANEL,BMP [CHEM] AM Lab 11/18/19 05:11 Ordered BASIC METABOLIC PANEL,BMP [CHEM] AM Lab 11/19/19 05:11 Ordered C-REACTIVE PROTEIN [CHEM] AM Lab 11/18/19 05:11 Ordered CBC WITH AUTO DIFF [HEME] AM Lab 11/18/19 05:11 Ordered CBC WITH AUTO DIFF [HEME] AM Lab 11/19/19 05:11 Ordered CULTURE BLOOD [BC] Stat Lab 11/16/19 22:50 Received CULTURE BLOOD [BC] Stat Lab 11/16/19 22:57 Received CULTURE URINE [RM] Stat Lab 11/16/19 21:54 Results LACTIC ACID W/ REFLEX [LACTATE SEPSIS W/ REFLEX] [CHEM] Lab 11/17/19 08:48 Ordered Stat MAGNESIUM [CHEM] AM Lab 11/18/19 05:11 Ordered MAGNESIUM [CHEM] AM Lab 11/19/19 05:11 Ordered PROCALCITONIN [REF] Stat Lab 11/17/19 08:48 Ordered Acetaminophen [Tylenol] Med 11/17/19 08:44 Active 650 mg PO Q4H PRN Acetaminophen/HYDROcodone [[place] 325-5 MG] Med 11/17/19 08:44 Active 1 tab PO Q4H PRN ClonazePAM [KlonoPIN] Med 11/17/19 21:00 Active 0.5 mg PO BEDTIME HYDROmorphone [Dilaudid] Med 11/17/19 05:31 Active 0.5 mg IVPUSH Q2H PRN Ketorolac [Toradol] Med 11/17/19 08:44 Active 30 mg IV Q6H PRN Levofloxacin/Dextrose 5%-Water [Levaquin in D5W 750 MG/ Med 11/17/19 23:00 Active 150 ML] 750 mg Premix Bag 1 bag IV Q24H Levothyroxine Med 11/18/19 08:00 Active 75 mcg PO QAM Nicotine [Habitrol] Med 11/17/19 09:00 Active 14 mg TRDERM DAILY Ondansetron [Zofran] Med 11/17/19 02:55 Active 4 mg IVPUSH Q6H PRN Patient's Own Medication [Ptom] Med 11/17/19 08:47 Active 0 each PO BEDTIME PRN Patient's Own Medication [Ptom] Med 11/17/19 09:00 Active 0 each PO DAILY Patient's Own Medication [Ptom] Med 11/17/19 09:00 Active 450 each PO BID Sodium Chloride 0.9% [Saline Flush] Med 11/16/19 20:19 Active 10 ml FLUSH ASDIRECTED PRN Sodium Chloride 0.9% with KCl [Normal Saline with 40 Med 11/17/19 03:00 Active mEq KCl] 1,000 ml IV ASDIRECTED cloNIDine [Catapres] Med 11/17/19 09:00 Active 0.1 mg PO DAILY traZODone Med 11/17/19 08:46 Active 50 mg PO BEDTIME PRN Blood Culture x2 Reflex Set [OM.PC] Stat Oth 11/16/19 22:28 Ordered Peripheral IV Insertion Adult [OM.PC] Stat Oth 11/16/19 20:19 Ordered Code Status [Resuscitation Status] Routine Resus Stat 11/17/19 02:53 Ordered Medication Orders Acetaminophen (Tylenol) 650 mg PO Q4H PRN PRN Reason: Pain (Mild 1-3)/fever Hydrocodone Bitart/Acetaminophen ([place] 325-5 Mg) 1 tab PO Q4H PRN PRN Reason: Pain (moderate 4-6) Clonazepam (Klonopin) 0.5 mg PO BEDTIME BABATUNDE Clonidine HCl (Catapres) 0.1 mg PO DAILY [facility] Hydromorphone HCl (Dilaudid) 0.5 mg IVPUSH Q2H PRN PRN Reason: Pain Last Admin: 11/17/19 05:51 Dose: 0.5 mg Potassium Chloride/Sodium Chloride (Normal Saline With 40 Meq Kcl) 1,000 mls @ 150 mls/hr IV ASDIRECTED BABATUNDE Last Admin: 11/17/19 06:47 Dose: 150 mls/hr Levofloxacin/Dextrose 750 mg/ (Premix) 150 mls @ 100 mls/hr IV Q24H BABATUNDE Ketorolac Tromethamine (Toradol) 30 mg IV Q6H PRN PRN Reason: Pain (moderate 4-6) Levothyroxine Sodium (Levothyroxine) 75 mcg PO QAM [facility] Nicotine (Habitrol) 14 mg TRDERM DAILY [facility] Ondansetron HCl (Zofran) 4 mg IVPUSH Q6H PRN PRN Reason: Nausea Last Admin: 11/17/19 05:23 Dose: 4 mg Cariprazine Hydrochloride [ Vraylar] 3 Mg 0 each PO DAILY [facility] [place] Carbonate (450 Mg) 450 each PO BID [facility] Prazosin Hcl [ (Prazosin] 10 Mg) 0 each PO BEDTIME PRN PRN Reason: [place] Sodium Chloride (Saline Flush) 10 ml FLUSH ASDIRECTED PRN PRN Reason: Keep Vein Open Last Admin: 11/16/19 23:40 Dose: 10 ml Trazodone HCl (Trazodone) 50 mg PO BEDTIME PRN PRN Reason: Insomnia Assessment/Plan Comment:: I/P: Acute: Pyelonephritis -Reports fever, cough, congestion, vomiting, back pain, diarrhea for past few days -Temp of 103 at home -Bilateral CVA tenderness -Sepsis criteria: + suspected bacterial infection; temp >100.9, >12 WBC, HR > 90, RR >20; No signs of organ dysfunction per criteria -Does not meet sepsis criteria -Positive UA in ED -Blood cultures pending -Urine cultures show gram negative rods thus far -WBC 16.61-->15.65 -Lactic acid 1.0 -Procalcitonin pending -Given fluid boluses in ED -Started on Levaquin 750mg in ED - continue -CT in ED shows bilateral abnormal enhancement of the kidneys. -Ambulate -IV fluids as ordered -Pain medications as ordered Acute renal injury: -BUN 7 -Creatinine 1.3 -eGFR 51 -IV fluids as ordered High anion gap metabolic acidosis -Anion gap 19.2-->16.5 -IV fluids as ordered Daily smoker -Nicotine patch -Cessation counseling S/P implanted loop recorder -Reportedly placed November 2018 -Placed due to "heart block" -Telemetry Chronic: Hypertension "heart block" asthma GERD LEEP procedure for cervical dysplasia in November 2018 Asperger syndrome stroke-like symptoms with neurological deficits in 2014 anxiety autism bipolar depression mood swings PTSD Hx/o suicide attempts hx/o suicidal ideation type II DM - A1C on 10/14/19 was 5.2% hypothyroidism obesity Plan: Admit to medical floor observation status -> upgrade to inpatient with telemetry She is ambulatory so no need for PT/OT at this time Other orders as indicated above Routine AM labs ADA diet Home medications as ordered DVT Prophylaxis: VTE score of 1 - not indicated Code status: Full Code PCP: Dr. Tyson Suspected LOS 3-4 days total - Mortality Measure Prognosis:: Good
[2019-11-17] MEDS ORDERED: CARIPRAZINE HYDROCHLORIDE 3 MG PO SCH ×2 (09:00→13:26)
[2019-11-17] MEDS ORDERED: LITHIUM CARBONATE 450 MG PO SCH ×3 (09:00→13:29)
[2019-11-17] MEDS ORDERED: Sodium Chloride 0.9% 500 ML IV ONE (09:36)
[2019-11-17] MEDS: cloNIDine 0.1 MG Tab PO SCH (09:50)
[2019-11-17] MEDS: Nicotine 14 MG/24 Hr Patch TRDERM SCH (09:50)
[2019-11-17] MEDS: Acetaminophen/HYDROcodone 325-5 MG Tab PO PRN ×2 (11:08→19:41)
[2019-11-17] MEDS: Ketorolac 30 MG/ML SDV IV PRN (14:46)
[2019-11-17] MEDS ORDERED: Insulin Lispro 100 Units/ML 3 ML Vial SUBCUT SCH (16:00)
[2019-11-17] MEDS: LITHIUM CARBONATE 450 MG PO SCH (18:05)
[2019-11-17] MEDS: CARIPRAZINE HYDROCHLORIDE 3 MG PO SCH (18:23)
[2019-11-17] MEDS: ClonazePAM 0.5 MG Tab PO SCH (21:32)
[2019-11-17] MEDS ORDERED: Lithium Carbonate 300 MG Tab.ER PO SCH (22:00)
[2019-11-17] MEDS: Levofloxacin/Dextrose 5%-Water 750 MG in Premix Bag 1 BAG IV SCH (22:27)
[2019-11-18] MEDS: Ketorolac 30 MG/ML SDV IV PRN ×2 (00:19→17:44)
[2019-11-18] MEDS: LITHIUM CARBONATE 450 MG PO SCH ×3 (02:20→20:02)
[2019-11-18] MEDS: Sodium Chloride 0.9% with KCl 1,000 ML IV SCH ×2 (04:28→10:48)
--- NOTE | 2019-11-18 07:00 | PCM.PN ---
- General Info Date of Service: 11/18/19 Admission Dx/Problem (Free Text): Admission Diagnosis/Problem Admission Diagnosis/Problem Pyelonephritis Subjective Update: In to see Uvaldo. She had a fever today and reports she still feels warm. She started her menstrual cycle last night so her Hgb may be variable. No other patient or nursing concerns. Awaiting micro report to possibly change Abx. Functional Status: Reports: Pain Controlled, Tolerating Diet, Ambulating, Urinating. Denies: New Symptoms - Review of Systems General: Reports: Fever, Weakness, Fatigue, Malaise. Denies: Chills HEENT: Reports: No Symptoms. Denies: Headaches, Sore Throat Pulmonary: Reports: Cough (improved ). Denies: Shortness of Breath, Pleuritic Chest Pain, Sputum, Wheezing Cardiovascular: Reports: No Symptoms. Denies: Chest Pain, Palpitations, Dyspnea on Exertion Gastrointestinal: Reports: Nausea. Denies: Abdominal Pain, Constipation, Diarrhea, Vomiting Genitourinary: Reports: No Symptoms. Denies: Pain Musculoskeletal: Reports: No Symptoms Skin: Reports: No Symptoms. Denies: Cyanosis Neurological: Reports: No Symptoms Psychiatric: Reports: No Symptoms - Patient Data Vitals - Most Recent: Last Vital Signs Temp 99.7 F 11/18/19 04:20 Pulse 97 11/18/19 04:20 Resp 28 H 11/18/19 04:20 BP 135/84 11/18/19 04:20 Pulse Ox 97 11/18/19 04:20 Weight - Most Recent: 280 lb 6.4 oz I&O - Last 24 Hours: Intake & Output 11/17/19 11/17/19 11/18/19 14:59 22:59 06:59 Intake Total 3414 2750 Output Total 650 2400 Balance 2764 350 Lab Results Last 24 Hours: Laboratory Results - last 24 hr 11/17/19 11/17/19 11/17/19 Range/Units 09:07 09:07 11:31 WBC (3.98-10.04) K/mm3 RBC (3.98-5.22) M/mm3 Hgb (11.2-15.7) gm/dl Hct (34.1-44.9) % MCV (79.4-94.8) fl MCH (25.6-32.2) pg MCHC (32.2-35.5) g/dl RDW Std Deviation (36.4-46.3) fL Plt Count (182-369) K/mm3 MPV (9.4-12.3) fl Neut % (Auto) (34.0-71.1) % Lymph % (Auto) (19.3-51.7) % [place] % (Auto) (4.7-12.5) % Eos % (Auto) (0.7-5.8) Baso % (Auto) (0.1-1.2) % Neut # (Auto) (1.56-6.13) K/mm3 Lymph # (Auto) (1.18-3.74) K/mm3 [place] # (Auto) (0.24-0.36) K/mm3 Eos # (Auto) (0.04-0.36) K/mm3 Baso # (Auto) (0.01-0.08) K/mm3 POC Glucose 94 (70-105) mg/dL Lactic Acid 0.6 (0.4-2.0) mmol/L Procalcitonin 1.94 H (<0.10) ng/mL 11/17/19 11/18/19 11/18/19 Range/Units 17:07 05:15 06:36 WBC 10.51 H (3.98-10.04) K/mm3 RBC 3.80 L (3.98-5.22) M/mm3 Hgb 11.3 (11.2-15.7) gm/dl Hct 36.2 (34.1-44.9) % MCV 95.3 H D (79.4-94.8) fl MCH 29.7 (25.6-32.2) pg MCHC 31.2 L (32.2-35.5) g/dl RDW Std Deviation 44.8 (36.4-46.3) fL Plt Count 179 L (182-369) K/mm3 MPV 11.5 (9.4-12.3) fl Neut % (Auto) 73.6 H (34.0-71.1) % Lymph % (Auto) 14.8 L (19.3-51.7) % [place] % (Auto) 10.9 (4.7-12.5) % Eos % (Auto) 0.4 L (0.7-5.8) Baso % (Auto) 0.1 (0.1-1.2) % Neut # (Auto) 7.73 H (1.56-6.13) K/mm3 Lymph # (Auto) 1.56 (1.18-3.74) K/mm3 [place] # (Auto) 1.15 H (0.24-0.36) K/mm3 Eos # (Auto) 0.04 (0.04-0.36) K/mm3 Baso # (Auto) 0.01 (0.01-0.08) K/mm3 POC Glucose 140 H 79 (70-105) mg/dL Lactic Acid (0.4-2.0) mmol/L Procalcitonin (<0.10) ng/mL Alejandro Results Last 24 Hours: Microbiology 11/16/19 22:57 Aerobic Blood Culture - Preliminary Blood - Venous - Lab Draw NO GROWTH AFTER 1 DAY Anaerobic Blood Culture - Preliminary NO GROWTH AFTER 1 DAY 11/16/19 22:50 Aerobic Blood Culture - Preliminary Blood - Venous NO GROWTH AFTER 1 DAY Anaerobic Blood Culture - Preliminary NO GROWTH AFTER 1 DAY 11/16/19 21:54 Urine Culture - Preliminary Urine, Clean Catch Gram Negative Rods Med Orders - Current: Current Medications Acetaminophen (Tylenol) 650 mg PO Q4H PRN PRN Reason: Pain (Mild 1-3)/fever Hydrocodone Bitart/Acetaminophen ([place] 325-5 Mg) 1 tab PO Q4H PRN PRN Reason: Pain (moderate 4-6) Last Admin: 11/17/19 19:41 Dose: 1 tab Clonazepam (Klonopin) 0.5 mg PO BEDTIME BABATUNDE Last Admin: 11/17/19 21:32 Dose: 0.5 mg Clonidine HCl (Catapres) 0.1 mg PO DAILY [facility] Last Admin: 11/17/19 09:50 Dose: 0.1 mg Hydromorphone HCl (Dilaudid) 0.5 mg IVPUSH Q2H PRN PRN Reason: Pain Last Admin: 11/17/19 05:51 Dose: 0.5 mg Potassium Chloride/Sodium Chloride (Normal Saline With 40 Meq Kcl) 1,000 mls @ 150 mls/hr IV ASDIRECTED BABATUNDE Last Admin: 11/18/19 04:28 Dose: 150 mls/hr Levofloxacin/Dextrose 750 mg/ (Premix) 150 mls @ 100 mls/hr IV Q24H [facility] Last Admin: 11/17/19 22:27 Dose: 100 mls/hr Ketorolac Tromethamine (Toradol) 30 mg IV Q6H PRN PRN Reason: Pain (moderate 4-6) Last Admin: 11/18/19 00:19 Dose: 30 mg Levothyroxine Sodium (Levothyroxine) 75 mcg PO QAM [facility] Miscellaneous Information (Remove Patch) 0 ea TRDERM DAILY [facility] Nicotine (Habitrol) 14 mg TRDERM DAILY [facility] Last Admin: 11/17/19 09:50 Dose: Not Given Ondansetron HCl (Zofran) 4 mg IVPUSH Q6H PRN PRN Reason: Nausea Last Admin: 11/17/19 19:39 Dose: 4 mg Prazosin Hcl [ (Prazosin] 5mg) 0 each PO BEDTIME PRN PRN Reason: [place] Carbonate (450 Mg*Pt Own Med*) 450 each PO Q8H [facility] Stop: 11/18/19 10:01 Last Admin: 11/18/19 02:20 Dose: 450 each [place] Carbonate (450 Mg*Pt Own Med*) 450 each PO BID [facility] Cariprazine Hydrochloride [ Vraylar] 3 Mg 0 each PO DAILY [facility] Last Admin: 11/17/19 18:23 Dose: 1 each Sodium Chloride (Saline Flush) 10 ml FLUSH ASDIRECTED PRN PRN Reason: Keep Vein Open Last Admin: 11/16/19 23:40 Dose: 10 ml Trazodone HCl (Trazodone) 50 mg PO BEDTIME PRN PRN Reason: Insomnia Discontinued Medications Acetaminophen (Tylenol) 650 mg PO NOW ONE Stop: 11/17/19 05:15 Last Admin: 11/17/19 05:23 Dose: 650 mg Sodium Chloride (Normal Saline) 1,000 mls @ 999 mls/hr IV ASDIRECTED [facility] Last Admin: 11/16/19 20:57 Dose: 999 mls/hr Lactated Ringer's (Ringers, Lactated) 1,000 mls @ 999 mls/hr IV ASDIRECTED [facility] Last Admin: 11/16/19 21:57 Dose: 999 mls/hr Ceftriaxone Sodium 1 gm/ (Sodium Chloride) 100 mls @ 200 mls/hr IV ONETIME ONE Stop: 11/16/19 22:51 Last Admin: 11/17/19 10:07 Dose: Not Given Levofloxacin/Dextrose 750 mg/ (Premix) 150 mls @ 100 mls/hr IV ONETIME ONE Stop: 11/17/19 00:08 Last Admin: 11/16/19 23:14 Dose: 100 mls/hr Potassium Chloride/Sodium Chloride (Normal Saline With 40 Meq Kcl) 1,000 mls @ 150 mls/hr IV ASDIRECTED [facility] Last Admin: 11/17/19 00:25 Dose: 150 mls/hr Sodium Chloride (Normal Saline) 500 mls @ 999 mls/min IV .BOLUS ONE Stop: 11/17/19 09:37 Last Admin: 11/17/19 09:48 Dose: 999 mls/min Insulin Human [facility]al[facility]) [facility] Protocol Last Admin: 11/17/19 18:25 Dose: Not Given Iopamidol (Isovue-300 (61%)) 100 ml IVPUSH ONETIME ONE Stop: 11/16/19 22:41 Last Admin: 11/16/19 23:40 Dose: 100 ml Ketorolac Tromethamine (Toradol) 30 mg IVPUSH ONETIME ONE Stop: 11/16/19 21:39 Last Admin: 11/16/19 21:48 Dose: 30 mg [place] Carbonate (Lithobid) 450 mg PO Q8HR [facility] Stop: 11/18/19 14:01 [place] Carbonate (450 Mg) 0 each PO BID [facility] Ondansetron HCl (Zofran) 4 mg IVPUSH ONETIME ONE Stop: 11/16/19 20:23 Last Admin: 11/16/19 20:58 Dose: 4 mg Ondansetron HCl (Zofran) 4 mg IVPUSH ONETIME ONE Stop: 11/17/19 00:11 Last Admin: 11/17/19 00:20 Dose: 4 mg Cariprazine Hydrochloride [ Vraylar] 3 Mg 0 each PO DAILY [facility] Last Admin: 11/17/19 09:50 Dose: Not Given [place] Carbonate (450 Mg) 450 each PO BID [facility] Last Admin: 11/17/19 09:50 Dose: Not Given Prazosin Hcl [ (Prazosin] 5mg) 0 each PO BEDTIME PRN PRN Reason: [place] Cariprazine Hydrochloride [ Vraylar] 3 Mg 0 each PO DAILY BABATUNDE [place] Carbonate (450 Mg) 0 each PO BID BABATUNDE - Exam Quality Assessment: DVT Prophylaxis General: Alert, Oriented, Cooperative, No Acute Distress HEENT: Pupils Equal, Pupils Reactive, Mucous Membr. Moist/[place] Neck: Supple, Trachea Midline Lungs: Clear to Auscultation, Normal Respiratory Effort Cardiovascular: Regular Rate, Regular Rhythm GI/Abdominal Exam: Normal Bowel Sounds, Soft, Non-Tender, No Distention (Female) Exam: Deferred Back Exam: Normal Inspection, Full Range of Motion, CVA Tenderness (L), CVA Tenderness (R) Extremities: Normal Inspection, Normal Range of Motion, Non-Tender, No Pedal Edema, Normal Capillary Refill Peripheral Pulses: 2+: Radial (L), Radial (R), Dorsalis Pedis (L), Dorsalis Pedis (R) Skin: Warm, Dry, Intact Neurological: No New Focal Deficit Psy/Mental Status: Alert, Normal Affect, Normal Mood Sepsis Event Note - Evaluation Sepsis Screening Result: Sepsis Risk - Focused Exam Vital Signs: Vital Signs Temp Pulse Resp BP Pulse Ox 11/18/19 04:20 99.7 F 97 28 H 135/84 97 11/18/19 00:04 100.2 F 108 H 12 129/95 H 98 11/17/19 19:39 97.3 F 107 H 24 H 137/95 H 100 Date Exam was Performed: 11/18/19 Time Exam was Performed: 14:48 - Problem List & Annotations (1) Pyelonephritis SNOMED Code(s): 30562974 Code(s): N12 - TUBULO-INTERSTITIAL NEPHRITIS, NOT SPCF ACUTE OR CHRONIC Status: Acute Priority: High Current Visit: Yes (2) Hypertension SNOMED Code(s): 36454400 Code(s): I10 - ESSENTIAL (PRIMARY) HYPERTENSION Status: Chronic Priority : Medium Current Visit: No Qualifiers: Hypertension type: unspecified Qualified Code(s): I10 - Essential (primary ) hypertension (3) HB (heart block) SNOMED Code(s): 356328738 Code(s): I45.9 - CONDUCTION DISORDER, UNSPECIFIED Status: Chronic Priority: Medium Current Visit: No (4) Status post placement of implantable loop recorder SNOMED Code(s): 127948264, 464292519, 800024157 Code(s): Z95.818 - PRESENCE OF OTHER CARDIAC IMPLANTS AND GRAFTS Status: Chronic Priority: Low Current Visit: No (5) Asthma SNOMED Code(s): 755421786 Code(s): J45.909 - UNSPECIFIED ASTHMA, UNCOMPLICATED Status: Chronic Priority: Low Current Visit: No Qualifiers: Asthma severity: unspecified severity Asthma persistence: unspecified Asthma complication type: unspecified Qualified Code(s): J45.909 - Unspecified asthma, uncomplicated (6) GERD (gastroesophageal reflux disease) SNOMED Code(s): 702254559 Code(s): K21.9 - GASTRO-ESOPHAGEAL REFLUX DISEASE WITHOUT ESOPHAGITIS Status: Chronic Priority: Low Current Visit: No Qualifiers: Esophagitis presence: esophagitis presence not specified Qualified Code(s) : K21.9 - Gastro-esophageal reflux disease without esophagitis (7) S/P LEEP of cervix SNOMED Code(s): 091006190692825, 38675486, 734179328284059 Code(s): Z98.890 - OTHER SPECIFIED POSTPROCEDURAL STATES Status: Chronic Priority: Low Current Visit: No (8) Asperger syndrome SNOMED Code(s): 37482795 Code(s): F84.5 - ASPERGER'S SYNDROME Status: Chronic Priority: Low Current Visit: No (9) Stroke-like symptoms SNOMED Code(s): 469346511 Code(s): R29.90 - UNSPECIFIED SYMPTOMS AND SIGNS INVOLVING THE NERVOUS SYSTEM Status: Chronic Priority: Medium Current Visit: Yes Annotation/ Comment:: in 2015 (10) Autism SNOMED Code(s): 879540806 Code(s): F84.0 - AUTISTIC DISORDER Status: Chronic Priority: Medium Current Visit: No (11) Mood swings SNOMED Code(s): 16468420 Code(s): R45.86 - EMOTIONAL LABILITY Status: Chronic Priority: Low Current Visit: No (12) PTSD (post-traumatic stress disorder) SNOMED Code(s): 17074697 Code(s): F43.10 - POST-TRAUMATIC STRESS DISORDER, UNSPECIFIED Status: Chronic Priority: Medium Current Visit: No (13) History of suicide attempt SNOMED Code(s): 606770274, 136073504 Code(s): Z91.5 - PERSONAL HISTORY OF SELF-HARM Status: Chronic Priority: Low Current Visit: No (14) History of suicidal ideation SNOMED Code(s): 158491617 Code(s): Z86.59 - PERSONAL HISTORY OF OTHER MENTAL AND BEHAVIORAL DISORDERS Status: Chronic Priority: Low Current Visit: No (15) Type II diabetes mellitus SNOMED Code(s): 40672647 Code(s): E11.9 - TYPE 2 DIABETES MELLITUS WITHOUT COMPLICATIONS Status: Chronic Priority: Medium Current Visit: Yes Qualifiers: Diabetes mellitus adjunct faculty for medical terminology insulin use: unspecified adjunct faculty for medical terminology insulin use status Diabetes mellitus complication status: with other specified complication Qualified Code(s): E11.69 - Type 2 diabetes mellitus with other specified complication (16) Obesity SNOMED Code(s): 957233008, 533735136 Code(s): E66.9 - OBESITY, UNSPECIFIED Status: Chronic Priority: Low Current Visit: No Qualifiers: Obesity type: unspecified obesity type Obesity classification: adult class 3 (BMI >= 40) Serious obesity comorbidity presence: unspecified whether serious comorbidity present Body mass index: BMI 45.0-49.9 Qualified Code(s) : E66.01 - Morbid (severe) obesity due to excess calories; Z68.42 - Body mass index (BMI) 45.0-49.9, adult (17) Anxiety SNOMED Code(s): 16313034 Code(s): F41.9 - ANXIETY DISORDER, UNSPECIFIED Status: Chronic Priority: Low Current Visit: No (18) Bipolar disorder SNOMED Code(s): 44855830 Code(s): F31.9 - BIPOLAR DISORDER, UNSPECIFIED Status: Chronic Priority: Medium Current Visit: Yes (19) Depressive disorder SNOMED Code(s): 69496128 Code(s): F32.9 - MAJOR DEPRESSIVE DISORDER, SINGLE EPISODE, UNSPECIFIED Status: Chronic Priority: Low Current Visit: No (20) Current smoker SNOMED Code(s): 83820183 Code(s): F17.200 - NICOTINE DEPENDENCE, UNSPECIFIED, UNCOMPLICATED Status: Chronic Priority: Medium Current Visit: Yes (21) Acute renal injury SNOMED Code(s): 16448154, 09090029 Code(s): N17.9 - ACUTE KIDNEY FAILURE, UNSPECIFIED Status: Acute Priority : High Current Visit: Yes (22) High anion gap metabolic acidosis SNOMED Code(s): 69743830 Code(s): E87.2 - ACIDOSIS Status: Acute Priority: High Current Visit: Yes - Problem List Review Problem List Initiated/Reviewed/Updated: Yes - My Orders Last 24 Hours: My Active Orders 11/17/19 08:43 Patient Status [ADT] Routine 11/17/19 08:44 Height and Weight [RC] 04 Intake and Output [RC] 04,16 Oxygen Therapy [RC] PRN Up With Assistance [RC] BID VTE/DVT Education [RC] DAILY Vital Signs [RC] Q4H Consult to Spiritual Care [CONS] Routine Acetaminophen [Tylenol] 650 mg PO Q4H PRN Acetaminophen/HYDROcodone [[place] 325-5 MG] 1 tab PO Q4H PRN Ketorolac [Toradol] 30 mg IV Q6H PRN 11/17/19 08:45 Pulse Oximetry [RC] PRN 11/17/19 08:46 traZODone 50 mg PO BEDTIME PRN 11/17/19 09:00 Nicotine [Habitrol] 14 mg TRDERM DAILY cloNIDine [Catapres] 0.1 mg PO DAILY 11/17/19 13:22 Patient's Own Medication [Ptom] 0 each PO BEDTIME PRN 11/17/19 18:00 Patient's Own Medication [Ptom] 450 each PO Q8H 11/17/19 18:30 Patient's Own Medication [Ptom] 0 each PO DAILY 11/17/19 21:00 ClonazePAM [KlonoPIN] 0.5 mg PO BEDTIME 11/17/19 23:00 Levofloxacin/Dextrose 5%-Water [Levaquin in D5W 750 MG/150 ML] 750 mg Premix Bag 1 bag IV Q24H 11/17/19 Dinner Regular Diet [DIET] 11/18/19 05:15 BASIC METABOLIC PANEL,BMP [CHEM] AM C-REACTIVE PROTEIN [CHEM] AM MAGNESIUM [CHEM] AM 11/18/19 08:00 Levothyroxine 75 mcg PO QAM 11/18/19 09:00 Remove Patch 0 ea TRDERM DAILY 11/18/19 21:00 Patient's Own Medication [Ptom] 450 each PO BID 11/19/19 05:11 BASIC METABOLIC PANEL,BMP [CHEM] AM CBC WITH AUTO DIFF [HEME] AM MAGNESIUM [CHEM] AM - Plan Plan:: I/P: Acute: Pyelonephritis -Reports fever, cough, congestion, vomiting, back pain, diarrhea for past few days -Temp of 103 at home; 102 here -Bilateral CVA tenderness -Sepsis criteria: + suspected bacterial infection; temp >100.9, >12 WBC, HR > 90, RR >20; No signs of organ dysfunction per criteria -Does not meet sepsis criteria -Positive UA in ED -Blood cultures negative thus far -Urine cultures show gram negative rods thus far; Per micro - lots of resistance, cannot r/o ESBL -WBC 16.61-->15.65-->10.51 -Lactic acid 1.0-->0.6 -Procalcitonin 1.94 -Given fluid boluses in ED -Started on Levaquin 750mg in ED - continue for now -CT in ED shows bilateral abnormal enhancement of the kidneys. -Ambulate -IV fluids as ordered -Pain medications as ordered S/P Acute renal injury: -BUN 7-->8 -Creatinine 1.3-->1.1 -eGFR 51--> greater than 60 -IV fluids as ordered S/P High anion gap metabolic acidosis -Anion gap 19.2-->16.5-->13.6 -IV fluids as ordered Daily smoker -Nicotine patch -Cessation counseling S/P implanted loop recorder -Reportedly placed November 2018 -Placed due to "heart block" -Telemetry Chronic: Hypertension "heart block" asthma GERD LEEP procedure for cervical dysplasia in November 2018 Asperger syndrome stroke-like symptoms with neurological deficits in 2014 anxiety autism bipolar depression mood swings PTSD Hx/o suicide attempts hx/o suicidal ideation type II DM - A1C on 10/14/19 was 5.2% hypothyroidism obesity Plan: Admit to medical floor observation status -> upgrade to inpatient with telemetry She is ambulatory so no need for PT/OT at this time Other orders as indicated above Routine AM labs ADA diet Home medications as ordered DVT Prophylaxis: VTE score of 1 - not indicated Code status: Full Code PCP: Dr. Hinojosa Suspected LOS 3-4 days total
[2019-11-18] MEDS: Ondansetron 4 MG/2 ML SDV IVPUSH PRN (08:16)
[2019-11-18] MEDS ORDERED: Magnesium Sulfate/Water 2 GM in Premix Bag 1 BAG IV ONE (09:15)
[2019-11-18] MEDS: Levothyroxine 75 MCG Tab PO SCH (10:17)
[2019-11-18] MEDS: Promethazine 25 MG in Sodium Chloride 0.9% 50 ML IV PRN (10:17)
[2019-11-18] MEDS: cloNIDine 0.1 MG Tab PO SCH (10:17)
[2019-11-18] MEDS: CARIPRAZINE HYDROCHLORIDE 3 MG PO SCH (10:18)
[2019-11-18] MEDS: Nicotine 14 MG/24 Hr Patch TRDERM SCH (10:18)
[2019-11-18] MEDS ORDERED: Magnesium Sulfate/Water 50 ML ONE (10:40)
[2019-11-18] MEDS: Acetaminophen 325 MG Tab PO PRN (13:15)
[2019-11-18] MEDS ORDERED: Dextrose 5%-0.9% NaCl 1,000 ML IV SCH (14:15)
[2019-11-18] MEDS ORDERED: Scopolamine 1.5 MG Transdermal Patch TOP ONE (14:48)
[2019-11-18] MEDS: ClonazePAM 0.5 MG Tab PO SCH (20:01)
[2019-11-18] MEDS: traZODone 50 MG Tab PO PRN (20:52)
[2019-11-18] MEDS: Levofloxacin/Dextrose 5%-Water 750 MG in Premix Bag 1 BAG IV SCH (23:06)
[2019-11-19] MEDS: Ondansetron 4 MG/2 ML SDV IVPUSH PRN ×2 (00:03→08:27)
[2019-11-19] MEDS: Promethazine 25 MG in Sodium Chloride 0.9% 50 ML IV PRN ×2 (00:57→09:40)
[2019-11-19] MEDS: Acetaminophen 325 MG Tab PO PRN ×3 (04:41→23:58)
[2019-11-19] MEDS ORDERED: Lactated Ringers 1,000 ML IV ONE (05:28)
[2019-11-19] MEDS ORDERED: Meropenem 1 GM SDV IVPUSH SCH (05:45)
[2019-11-19] MEDS ORDERED: Meropenem 1 GM in Sodium Chloride 0.9% 100 ML IV SCH (06:00)
[2019-11-19] MEDS ORDERED: cefOXitin 2 GM in Premix Bag 1 BAG IV SCH (06:15)
[2019-11-19] MEDS ORDERED: Lactated Ringers 500 ML IV ONE (06:30)
--- NOTE | 2019-11-19 06:47 | PCM.PN ---
- General Info Date of Service: 11/19/19 Admission Dx/Problem (Free Text): Admission Diagnosis/Problem Admission Diagnosis/Problem Pyelonephritis Subjective Update: In to see Uvaldo. She reports she had a fever overnight and vomited in the AM. She has not vomited since but does still feel mildly nauseated. She has been getting Phenergan and it has been making her very sleepy. No fevers this AM. She reports she does feel a bit better than yesterday. We discussed her plan of care and recent abx change. She has no concerns. Functional Status: Reports: Pain Controlled, Tolerating Diet, Ambulating, Urinating. Denies: New Symptoms - Review of Systems General: Reports: Fever, Weakness, Fatigue. Denies: Chills HEENT: Reports: No Symptoms. Denies: Headaches, Sore Throat Pulmonary: Reports: No Symptoms. Denies: Shortness of Breath, Cough, Sputum, Wheezing Cardiovascular: Reports: No Symptoms. Denies: Chest Pain, Palpitations, Dyspnea on Exertion Gastrointestinal: Reports: Nausea, Vomiting. Denies: Abdominal Pain, Constipation, Diarrhea Genitourinary: Reports: No Symptoms. Denies: Dysuria Musculoskeletal: Reports: No Symptoms Skin: Reports: No Symptoms. Denies: Cyanosis Neurological: Reports: No Symptoms. Denies: Confusion, Difficulty Walking, Gait Disturbance Psychiatric: Reports: No Symptoms - Patient Data Vitals - Most Recent: Last Vital Signs Temp 101.8 F H 11/19/19 05:12 Pulse 103 H 11/19/19 05:12 Resp 40 H 11/19/19 05:12 BP 137/70 11/19/19 04:37 Pulse Ox 92 L 11/19/19 05:12 Weight - Most Recent: 278 lb 4.8 oz I&O - Last 24 Hours: Intake & Output 11/18/19 11/18/19 11/19/19 14:59 22:59 06:59 Intake Total 240 3910 2300 Output Total 3700 2825 Balance 240 210 -525 Lab Results Last 24 Hours: Laboratory Results - last 24 hr 11/18/19 11/19/19 11/19/19 Range/Units 05:15 05:35 05:35 WBC 9.19 (3.98-10.04) K/mm3 RBC 3.84 L (3.98-5.22) M/mm3 Hgb 11.4 (11.2-15.7) gm/dl Hct 36.2 (34.1-44.9) % MCV 94.3 (79.4-94.8) fl MCH 29.7 (25.6-32.2) pg MCHC 31.5 L (32.2-35.5) g/dl RDW Std Deviation 44.1 (36.4-46.3) fL Plt Count 215 (182-369) K/mm3 MPV 11.5 (9.4-12.3) fl Neut % (Auto) 75.3 H (34.0-71.1) % Lymph % (Auto) 15.3 L (19.3-51.7) % [place] % (Auto) 7.6 (4.7-12.5) % Eos % (Auto) 1.3 (0.7-5.8) Baso % (Auto) 0.1 (0.1-1.2) % Neut # (Auto) 6.91 H (1.56-6.13) K/mm3 Lymph # (Auto) 1.41 (1.18-3.74) K/mm3 [place] # (Auto) 0.70 H (0.24-0.36) K/mm3 Eos # (Auto) 0.12 (0.04-0.36) K/mm3 Baso # (Auto) 0.01 (0.01-0.08) K/mm3 Sodium 142 (136-145) mEq/L Potassium 4.6 (3.5-5.1) mEq/L Chloride 112 H (98-107) mEq/L Carbon Dioxide 21 (21-32) mEq/L Anion Gap 13.6 (5-15) BUN 8 (7-18) mg/dL Creatinine 1.1 H (0.55-1.02) mg/dL Est Cr Clr Drug Dosing 66.36 mL/min Estimated GFR (MDRD) > 60 (>60) mL/min BUN/Creatinine Ratio 7.3 L (14-18) Glucose 92 (74-106) mg/dL Lactic Acid 1.0 (0.4-2.0) mmol/L Calcium 9.0 (8.5-10.1) mg/dL Magnesium 1.7 L (1.8-2.4) mg/dl Total Bilirubin (0.2-1.0) mg/dL AST (15-37) U/L ALT (14-59) U/L Alkaline Phosphatase (46-116) U/L C-Reactive Protein 36.0 H* (<1.0) mg/dL Total Protein (6.4-8.2) g/dl Albumin (3.4-5.0) g/dl Globulin gm/dL Albumin/Globulin Ratio (1-2) 11/19/19 Range/Units 05:35 WBC (3.98-10.04) K/mm3 RBC (3.98-5.22) M/mm3 Hgb (11.2-15.7) gm/dl Hct (34.1-44.9) % MCV (79.4-94.8) fl MCH (25.6-32.2) pg MCHC (32.2-35.5) g/dl RDW Std Deviation (36.4-46.3) fL Plt Count (182-369) K/mm3 MPV (9.4-12.3) fl Neut % (Auto) (34.0-71.1) % Lymph % (Auto) (19.3-51.7) % [place] % (Auto) (4.7-12.5) % Eos % (Auto) (0.7-5.8) Baso % (Auto) (0.1-1.2) % Neut # (Auto) (1.56-6.13) K/mm3 Lymph # (Auto) (1.18-3.74) K/mm3 [place] # (Auto) (0.24-0.36) K/mm3 Eos # (Auto) (0.04-0.36) K/mm3 Baso # (Auto) (0.01-0.08) K/mm3 Sodium 140 (136-145) mEq/L Potassium 4.1 (3.5-5.1) mEq/L Chloride 109 H (98-107) mEq/L Carbon Dioxide 18 L (21-32) mEq/L Anion Gap 17.1 H (5-15) BUN 5 L (7-18) mg/dL Creatinine 1.2 H (0.55-1.02) mg/dL Est Cr Clr Drug Dosing 60.83 mL/min Estimated GFR (MDRD) 56 (>60) mL/min BUN/Creatinine Ratio 4.2 L (14-18) Glucose 134 H (74-106) mg/dL Lactic Acid (0.4-2.0) mmol/L Calcium 8.8 (8.5-10.1) mg/dL Magnesium 2.0 (1.8-2.4) mg/dl Total Bilirubin 0.4 (0.2-1.0) mg/dL AST 32 (15-37) U/L ALT 38 (14-59) U/L Alkaline Phosphatase 62 (46-116) U/L C-Reactive Protein 23.4 H* (<1.0) mg/dL Total Protein 6.6 (6.4-8.2) g/dl Albumin 2.3 L (3.4-5.0) g/dl Globulin 4.3 gm/dL Albumin/Globulin Ratio 0.5 L (1-2) Alejandro Results Last 24 Hours: Microbiology 11/16/19 21:54 Urine Culture - Preliminary Urine, Clean Catch (Esbl) Escherichia Coli 11/16/19 22:57 Aerobic Blood Culture - Preliminary Blood - Venous - Lab Draw NO GROWTH AFTER 2 DAYS Anaerobic Blood Culture - Preliminary NO GROWTH AFTER 2 DAYS 11/16/19 22:50 Aerobic Blood Culture - Preliminary Blood - Venous NO GROWTH AFTER 2 DAYS Anaerobic Blood Culture - Preliminary NO GROWTH AFTER 2 DAYS Med Orders - Current: Current Medications Acetaminophen (Tylenol) 650 mg PO Q4H PRN PRN Reason: Pain (Mild 1-3)/fever Last Admin: 11/19/19 04:41 Dose: 650 mg Hydrocodone Bitart/Acetaminophen ([place] 325-5 Mg) 1 tab PO Q4H PRN PRN Reason: Pain (moderate 4-6) Last Admin: 11/17/19 19:41 Dose: 1 tab Clonazepam (Klonopin) 0.5 mg PO BEDTIME BABATUNDE Last Admin: 11/18/19 20:01 Dose: 0.5 mg Clonidine HCl (Catapres) 0.1 mg PO DAILY BABATUNDE Last Admin: 11/18/19 10:17 Dose: 0.1 mg Hydromorphone HCl (Dilaudid) 0.5 mg IVPUSH Q2H PRN PRN Reason: Pain Last Admin: 11/17/19 05:51 Dose: 0.5 mg Potassium Chloride/Sodium Chloride (Normal Saline With 40 Meq Kcl) 1,000 mls @ 150 mls/hr IV ASDIRECTED [facility] Last Admin: 11/18/19 10:48 Dose: 150 mls/hr Promethazine HCl 25 mg/ Sodium (Chloride) 51 mls @ 100 mls/hr IV Q6H PRN PRN Reason: Nausea/Vomiting Last Admin: 11/19/19 00:57 Dose: 100 mls/hr Dextrose/Sodium Chloride (Dextrose 5%-Normal Saline) 1,000 mls @ 50 mls/hr IV ASDIRECTED [facility] Last Admin: 11/18/19 15:02 Dose: 50 mls/hr Cefoxitin Sodium 2 gm/ Premix 50 mls @ 100 mls/hr IV Q6HR [facility] Lactated Ringer's (Ringers, Lactated) 500 mls @ 999 mls/hr IV .BOLUS ONE Stop: 11/19/19 07:00 Ketorolac Tromethamine (Toradol) 30 mg IV Q6H PRN PRN Reason: Pain (moderate 4-6) Last Admin: 11/18/19 17:44 Dose: 30 mg Levothyroxine Sodium (Levothyroxine) 75 mcg PO QAM [facility] Last Admin: 11/18/19 10:17 Dose: 75 mcg Miscellaneous Information (Remove Patch) 0 ea TRDERM DAILY [facility] Last Admin: 11/18/19 10:19 Dose: Not Given Miscellaneous Information (Remove Patch) 1 ea TRDERM ONETIME ONE Stop: 11/21/19 15:01 Nicotine (Habitrol) 14 mg TRDERM DAILY [facility] Last Admin: 11/18/19 10:18 Dose: Not Given Ondansetron HCl (Zofran) 4 mg IVPUSH Q6H PRN PRN Reason: Nausea Last Admin: 11/19/19 00:03 Dose: 4 mg Prazosin Hcl [ (Prazosin] 5mg) 0 each PO BEDTIME PRN PRN Reason: [place] Carbonate (450 Mg*Pt Own Med*) 450 each PO BID [facility] Last Admin: 11/18/19 20:02 Dose: 450 each Cariprazine Hydrochloride [ Vraylar] 3 Mg 0 each PO DAILY [facility] Last Admin: 11/18/19 10:18 Dose: 1 each Sodium Chloride (Saline Flush) 10 ml FLUSH ASDIRECTED PRN PRN Reason: Keep Vein Open Last Admin: 11/16/19 23:40 Dose: 10 ml Trazodone HCl (Trazodone) 50 mg PO BEDTIME PRN PRN Reason: Insomnia Last Admin: 11/18/19 20:52 Dose: 50 mg Discontinued Medications Acetaminophen (Tylenol) 650 mg PO NOW ONE Stop: 11/17/19 05:15 Last Admin: 11/17/19 05:23 Dose: 650 mg Sodium Chloride (Normal Saline) 1,000 mls @ 999 mls/hr IV ASDIRECTED [facility] Last Admin: 11/16/19 20:57 Dose: 999 mls/hr Lactated Ringer's (Ringers, Lactated) 1,000 mls @ 999 mls/hr IV ASDIRECTED [facility] Last Admin: 11/16/19 21:57 Dose: 999 mls/hr Ceftriaxone Sodium 1 gm/ (Sodium Chloride) 100 mls @ 200 mls/hr IV ONETIME ONE Stop: 11/16/19 22:51 Last Admin: 11/17/19 10:07 Dose: Not Given Levofloxacin/Dextrose 750 mg/ (Premix) 150 mls @ 100 mls/hr IV ONETIME ONE Stop: 11/17/19 00:08 Last Admin: 11/16/19 23:14 Dose: 100 mls/hr Potassium Chloride/Sodium Chloride (Normal Saline With 40 Meq Kcl) 1,000 mls @ 150 mls/hr IV ASDIRECTED [facility] Last Admin: 11/17/19 00:25 Dose: 150 mls/hr Levofloxacin/Dextrose 750 mg/ (Premix) 150 mls @ 100 mls/hr IV Q24H [facility] Last Admin: 11/18/19 23:06 Dose: 100 mls/hr Sodium Chloride (Normal Saline) 500 mls @ 999 mls/min IV .BOLUS ONE Stop: 11/17/19 09:37 Last Admin: 11/17/19 09:48 Dose: 999 mls/min Magnesium Sulfate 2 gm/ Premix 50 mls @ 25 mls/hr IV ONETIME ONE Stop: 11/18/19 11:14 Last Admin: 11/18/19 10:48 Dose: 25 mls/hr Magnesium Sulfate (Magnesium Sulfate In Water Premix) Confirm Administered Dose 50 mls @ as directed .ROUTE .STK-MED ONE Stop: 11/18/19 10:41 Last Admin: 02/18/20 10:48 Dose: Not Given Lactated Ringer's (Ringers, Lactated) 1,000 mls @ 999 mls/hr IV .BOLUS ONE Stop: 11/19/19 06:28 Last Admin: 11/19/19 05:35 Dose: 999 mls/hr Meropenem 1 gm/ Sodium (Chloride) 100 mls @ 200 mls/hr IV Q8H [facility] Last Admin: 11/19/19 06:37 Dose: Not Given Insulin Human Lispro (Humalog) 0 unit SUBCUT BIDAC [facility]; Protocol Last Admin: 11/17/19 18:25 Dose: Not Given Iopamidol (Isovue-300 (61%)) 100 ml IVPUSH ONETIME ONE Stop: 11/16/19 22:41 Last Admin: 11/16/19 23:40 Dose: 100 ml Ketorolac Tromethamine (Toradol) 30 mg IVPUSH ONETIME ONE Stop: 11/16/19 21:39 Last Admin: 11/16/19 21:48 Dose: 30 mg [place] Carbonate (Lithobid) 450 mg PO Q8HR [facility] Stop: 11/18/19 14:01 Meropenem (Merrem) 1 gm IVPUSH Q8H [facility] Last Admin: 11/19/19 06:37 Dose: Not Given [place] Carbonate (450 Mg) 0 each PO BID [facility] Ondansetron HCl (Zofran) 4 mg IVPUSH ONETIME ONE Stop: 11/16/19 20:23 Last Admin: 11/16/19 20:58 Dose: 4 mg Ondansetron HCl (Zofran) 4 mg IVPUSH ONETIME ONE Stop: 11/17/19 00:11 Last Admin: 11/17/19 00:20 Dose: 4 mg Cariprazine Hydrochloride [ Vraylar] 3 Mg 0 each PO DAILY [facility] Last Admin: 11/17/19 09:50 Dose: Not Given [place] Carbonate (450 Mg) 450 each PO BID [facility] Last Admin: 11/17/19 09:50 Dose: Not Given Prazosin Hcl [ (Prazosin] 5mg) 0 each PO BEDTIME PRN PRN Reason: NIGHTMARES Cariprazine Hydrochloride [ Vraylar] 3 Mg 0 each PO DAILY [facility] [place] Carbonate (450 Mg) 0 each PO BID [facility] [place] Carbonate (450 Mg*Pt Own Med*) 450 each PO Q8H BABATUNDE Stop: 11/18/19 10:01 Last Admin: 11/18/19 10:20 Dose: 450 each Scopolamine (Transderm-Scop) 1.5 mg TOP ONETIME ONE Stop: 11/18/19 14:49 Last Admin: 11/18/19 15:00 Dose: 1.5 mg - Exam Quality Assessment: DVT Prophylaxis General: Alert, Oriented, Cooperative, No Acute Distress HEENT: Pupils Equal, Pupils Reactive, Mucous Membr. Moist/[place] Neck: Supple, Trachea Midline Lungs: Clear to Auscultation, Normal Respiratory Effort Cardiovascular: Regular Rate, Regular Rhythm GI/Abdominal Exam: Normal Bowel Sounds, Soft, Non-Tender, No Distention (Female) Exam: Deferred Back Exam: Normal Inspection, Full Range of Motion Extremities: Normal Inspection, Normal Range of Motion, Non-Tender, No Pedal Edema, Normal Capillary Refill Peripheral Pulses: 3+: Radial (L), Radial (R), Dorsalis Pedis (L), Dorsalis Pedis (R) Skin: Warm, Dry, Intact Neurological: No New Focal Deficit Psy/Mental Status: Alert, Normal Affect, Normal Mood Sepsis Event Note - Evaluation Sepsis Screening Result: Sepsis Risk - Focused Exam Vital Signs: Vital Signs Temp Pulse Resp BP Pulse Ox 11/19/19 05:12 101.8 F H 103 H 40 H 92 L 11/19/19 04:41 102.9 F H 11/19/19 04:37 102.9 F H 104 H 40 H 137/70 97 11/19/19 00:45 100.8 F H 11/18/19 23:14 99.3 F 89 32 H 111/86 100 11/18/19 20:05 97.9 F 82 16 102/71 99 Date Exam was Performed: 11/19/19 Time Exam was Performed: 15:40 - Problem List & Annotations (1) Pyelonephritis SNOMED Code(s): 22136177 Code(s): N12 - TUBULO-INTERSTITIAL NEPHRITIS, NOT SPCF ACUTE OR CHRONIC Status: Acute Priority: High Current Visit: Yes (2) Hypertension SNOMED Code(s): 55207396 Code(s): I10 - ESSENTIAL (PRIMARY) HYPERTENSION Status: Chronic Priority : Medium Current Visit: No Qualifiers: Hypertension type: unspecified Qualified Code(s): I10 - Essential (primary ) hypertension (3) HB (heart block) SNOMED Code(s): 429929799 Code(s): I45.9 - CONDUCTION DISORDER, UNSPECIFIED Status: Chronic Priority: Medium Current Visit: No (4) Status post placement of implantable loop recorder SNOMED Code(s): 506160782, 035594329, 474332576 Code(s): Z95.818 - PRESENCE OF OTHER CARDIAC IMPLANTS AND GRAFTS Status: Chronic Priority: Low Current Visit: No (5) Asthma SNOMED Code(s): 739818424 Code(s): J45.909 - UNSPECIFIED ASTHMA, UNCOMPLICATED Status: Chronic Priority: Low Current Visit: No Qualifiers: Asthma severity: unspecified severity Asthma persistence: unspecified Asthma complication type: unspecified Qualified Code(s): J45.909 - Unspecified asthma, uncomplicated (6) GERD (gastroesophageal reflux disease) SNOMED Code(s): 427885077 Code(s): K21.9 - GASTRO-ESOPHAGEAL REFLUX DISEASE WITHOUT ESOPHAGITIS Status: Chronic Priority: Low Current Visit: No Qualifiers: Esophagitis presence: esophagitis presence not specified Qualified Code(s) : K21.9 - Gastro-esophageal reflux disease without esophagitis (7) S/P LEEP of cervix SNOMED Code(s): 788864322575177, 70307199, 241262224274093 Code(s): Z98.890 - OTHER SPECIFIED POSTPROCEDURAL STATES Status: Chronic Priority: Low Current Visit: No (8) Asperger syndrome SNOMED Code(s): 80762231 Code(s): F84.5 - ASPERGER'S SYNDROME Status: Chronic Priority: Low Current Visit: No (9) Stroke-like symptoms SNOMED Code(s): 792386428 Code(s): R29.90 - UNSPECIFIED SYMPTOMS AND SIGNS INVOLVING THE NERVOUS SYSTEM Status: Chronic Priority: Medium Current Visit: Yes Annotation/ Comment:: in 2015 (10) Autism SNOMED Code(s): 757605462 Code(s): F84.0 - AUTISTIC DISORDER Status: Chronic Priority: Medium Current Visit: No (11) Mood swings SNOMED Code(s): 53213384 Code(s): R45.86 - EMOTIONAL LABILITY Status: Chronic Priority: Low Current Visit: No (12) PTSD (post-traumatic stress disorder) SNOMED Code(s): 98684096 Code(s): F43.10 - POST-TRAUMATIC STRESS DISORDER, UNSPECIFIED Status: Chronic Priority: Medium Current Visit: No (13) History of suicide attempt SNOMED Code(s): 776456287, 050659068 Code(s): Z91.5 - PERSONAL HISTORY OF SELF-HARM Status: Chronic Priority: Low Current Visit: No (14) History of suicidal ideation SNOMED Code(s): 343972234 Code(s): Z86.59 - PERSONAL HISTORY OF OTHER MENTAL AND BEHAVIORAL DISORDERS Status: Chronic Priority: Low Current Visit: No (15) Type II diabetes mellitus SNOMED Code(s): 13314033 Code(s): E11.9 - TYPE 2 DIABETES MELLITUS WITHOUT COMPLICATIONS Status: Chronic Priority: Medium Current Visit: Yes Qualifiers: Diabetes mellitus extermination supervisor insulin use: unspecified custodial insulin use status Diabetes mellitus complication status: with other specified complication Qualified Code(s): E11.69 - Type 2 diabetes mellitus with other specified complication (16) Obesity SNOMED Code(s): 654853156, 041283338 Code(s): E66.9 - OBESITY, UNSPECIFIED Status: Chronic Priority: Low Current Visit: No Qualifiers: Obesity type: unspecified obesity type Obesity classification: adult class 3 (BMI >= 40) Serious obesity comorbidity presence: unspecified whether serious comorbidity present Body mass index: BMI 45.0-49.9 Qualified Code(s) : E66.01 - Morbid (severe) obesity due to excess calories; Z68.42 - Body mass index (BMI) 45.0-49.9, adult (17) Anxiety SNOMED Code(s): 45439212 Code(s): F41.9 - ANXIETY DISORDER, UNSPECIFIED Status: Chronic Priority: Low Current Visit: No (18) Bipolar disorder SNOMED Code(s): 66945363 Code(s): F31.9 - BIPOLAR DISORDER, UNSPECIFIED Status: Chronic Priority: Medium Current Visit: Yes (19) Depressive disorder SNOMED Code(s): 31717194 Code(s): F32.9 - MAJOR DEPRESSIVE DISORDER, SINGLE EPISODE, UNSPECIFIED Status: Chronic Priority: Low Current Visit: No (20) Current smoker SNOMED Code(s): 87836012 Code(s): F17.200 - NICOTINE DEPENDENCE, UNSPECIFIED, UNCOMPLICATED Status: Chronic Priority: Medium Current Visit: Yes (21) Acute renal injury SNOMED Code(s): 09680921, 08607629 Code(s): N17.9 - ACUTE KIDNEY FAILURE, UNSPECIFIED Status: Acute Priority : High Current Visit: Yes (22) High anion gap metabolic acidosis SNOMED Code(s): 73109047 Code(s): E87.2 - ACIDOSIS Status: Acute Priority: High Current Visit: Yes (23) Hypomagnesemia SNOMED Code(s): 259956473 Code(s): E83.42 - HYPOMAGNESEMIA Status: Resolved Priority: High Current Visit: Yes - Problem List Review Problem List Initiated/Reviewed/Updated: Yes - My Orders Last 24 Hours: My Active Orders 11/18/19 08:00 Levothyroxine 75 mcg PO QAM 11/18/19 09:00 Remove Patch 0 ea TRDERM DAILY 11/18/19 09:12 Promethazine [Phenergan] 25 mg Sodium Chloride 0.9% [Normal Saline] 50 ml IV Q6H 11/18/19 14:15 Dextrose 5%-0.9% NaCl [Dextrose 5%-Normal Saline] 1,000 ml IV ASDIRECTED 11/18/19 21:00 Patient's Own Medication [Ptom] 450 each PO BID 11/21/19 15:00 Remove Patch 1 ea TRDERM ONETIME ONE - Plan Plan:: I/P: Acute: Pyelonephritis -Reports fever, cough, congestion, vomiting, back pain, diarrhea for past few days -Temp of 103 at home; 102 here -Bilateral CVA tenderness -Sepsis criteria: + suspected bacterial infection; temp >100.9, >12 WBC, HR > 90, RR >20; No signs of organ dysfunction per criteria -Does not meet sepsis criteria -Positive UA in ED -Blood cultures negative thus far -Urine culture: ESBL E.coli -WBC 16.61-->15.65-->10.51-->9.19 -Lactic acid 1.0-->0.6-->1.0 -Procalcitonin 1.94 -Given fluid boluses in ED -Started on Levaquin 750mg in ED - continue for now -CT in ED shows bilateral abnormal enhancement of the kidneys. -Ambulate -IV fluids as ordered -Repeat Procalcitonin today after fevers -Pain medications as ordered -Repeat CT abdomen if fevers continue Acute renal injury: -BUN 7-->8-->5 -Creatinine 1.3-->1.1-->1.2 -eGFR 51--> greater than 60-->56 -IV fluids as ordered -Poor oral intake High anion gap metabolic acidosis -Anion gap 19.2-->16.5-->13.6-->17.1 -IV fluids as ordered Daily smoker -Nicotine patch -Cessation counseling S/P implanted loop recorder -Reportedly placed November 2018 -Placed due to "heart block" -Telemetry S/P Hypomagnesemia -Magnesium 1.7-->2.0 -Supplemented Chronic: Hypertension "heart block" asthma GERD LEEP procedure for cervical dysplasia in November 2018 Asperger syndrome stroke-like symptoms with neurological deficits in 2014 anxiety autism bipolar - Check lithium level depression mood swings PTSD Hx/o suicide attempts hx/o suicidal ideation type II DM - A1C on 10/14/19 was 5.2% hypothyroidism obesity Plan: Admit to medical floor observation status -> upgrade to inpatient with telemetry --> discontinue telemetry She is ambulatory so no need for PT/OT at this time Other orders as indicated above Routine AM labs Home medications as ordered DVT Prophylaxis: Lovenox Code status: Full Code PCP: Dr. Hinojosa
[2019-11-19] MEDS: Nicotine 14 MG/24 Hr Patch TRDERM SCH (09:37)
[2019-11-19] MEDS: cloNIDine 0.1 MG Tab PO SCH (09:37)
[2019-11-19] MEDS: Levothyroxine 75 MCG Tab PO SCH (09:37)
[2019-11-19] MEDS: CARIPRAZINE HYDROCHLORIDE 3 MG PO SCH (09:39)
[2019-11-19] MEDS: LITHIUM CARBONATE 450 MG PO SCH ×2 (09:40→21:38)
[2019-11-19] MEDS ORDERED: Morphine 2 MG/ML Syringe IVPUSH PRN (10:48)
[2019-11-19] MEDS: Enoxaparin 40 MG/0.4 ML Syringe SUBCUT SCH (13:20)
[2019-11-19] MEDS: Meropenem Premix 500 MG in Premix Bag 1 BAG IV SCH ×3 (13:21→23:44)
[2019-11-19] MEDS: Lactated Ringers 1,000 ML IV SCH (15:30)
[2019-11-19] MEDS: ClonazePAM 0.5 MG Tab PO SCH (21:37)
[2019-11-19] MEDS: traZODone 50 MG Tab PO PRN (23:44)
[2019-11-20] MEDS: Lactated Ringers 1,000 ML IV SCH (02:33)
[2019-11-20] MEDS: Meropenem Premix 500 MG in Premix Bag 1 BAG IV SCH ×4 (05:46→23:44)
--- NOTE | 2019-11-20 07:29 | PCM.PN ---
- General Info Date of Service: 11/20/19 Admission Dx/Problem (Free Text): Admission Diagnosis/Problem Admission Diagnosis/Problem Pyelonephritis Subjective Update: In to see Uvaldo. She reports she has been very tired but overall feels better. She has been having episodes of tachypnea. Patient reports she has anxiety but does not feel a correlation between the 2. Mother reports she has noticed this at home occasionally. No other patient concerns. Functional Status: Reports: Pain Controlled, Tolerating Diet, Ambulating, Urinating. Denies: New Symptoms - Review of Systems General: Reports: No Symptoms, Weakness, Fatigue. Denies: Fever, Chills HEENT: Reports: No Symptoms. Denies: Sore Throat Pulmonary: Reports: No Symptoms. Denies: Shortness of Breath, Cough, Wheezing Cardiovascular: Reports: No Symptoms. Denies: Chest Pain, Palpitations Gastrointestinal: Reports: Nausea (mild ). Denies: Abdominal Pain, Constipation , Diarrhea, Vomiting Genitourinary: Reports: No Symptoms. Denies: Pain Musculoskeletal: Reports: No Symptoms Skin: Reports: No Symptoms. Denies: Cyanosis Neurological: Reports: No Symptoms Psychiatric: Reports: No Symptoms - Patient Data Vitals - Most Recent: Last Vital Signs Temp 99.0 F 11/20/19 04:48 Pulse 81 11/20/19 04:48 Resp 36 H 11/20/19 04:48 BP 115/79 11/20/19 04:48 Pulse Ox 100 11/20/19 04:48 Orthostatic Blood Pressure [ 136/91 Standing] Orthostatic Blood Pressure [ 144/61 Sitting] Orthostatic Blood Pressure [ 151/92 Supine] Weight - Most Recent: 278 lb 4.8 oz I&O - Last 24 Hours: Intake & Output 11/19/19 11/20/19 11/20/19 22:59 06:59 14:59 Intake Total 2490 Output Total 1700 Balance 790 Lab Results Last 24 Hours: Laboratory Results - last 24 hr 11/19/19 11/19/19 Range/Units 05:35 05:35 Procalcitonin 0.92 H 0.81 H (<0.10) ng/mL Alejandro Results Last 24 Hours: Microbiology 11/16/19 22:57 Aerobic Blood Culture - Preliminary Blood - Venous - Lab Draw NO GROWTH AFTER 3 DAYS Anaerobic Blood Culture - Preliminary NO GROWTH AFTER 3 DAYS 11/16/19 22:50 Aerobic Blood Culture - Preliminary Blood - Venous NO GROWTH AFTER 3 DAYS Anaerobic Blood Culture - Preliminary NO GROWTH AFTER 3 DAYS 11/16/19 21:54 Urine Culture - Preliminary Urine, Clean Catch (Esbl) Escherichia Coli Med Orders - Current: Current Medications Acetaminophen (Tylenol) 650 mg PO Q4H PRN PRN Reason: Pain (Mild 1-3)/fever Last Admin: 11/19/19 23:58 Dose: 650 mg Hydrocodone Bitart/Acetaminophen ([place] 325-5 Mg) 1 tab PO Q4H PRN PRN Reason: Pain (moderate 4-6) Last Admin: 11/17/19 19:41 Dose: 1 tab Clonazepam (Klonopin) 0.5 mg PO BEDTIME [facility] Last Admin: 11/19/19 21:37 Dose: 0.5 mg Clonidine HCl (Catapres) 0.1 mg PO DAILY [facility] Last Admin: 11/19/19 09:37 Dose: 0.1 mg Enoxaparin Sodium (Lovenox) 40 mg SUBCUT 1200 [facility] Last Admin: 11/19/19 13:20 Dose: 40 mg Hydromorphone HCl (Dilaudid) 0.5 mg IVPUSH Q2H PRN PRN Reason: Pain Last Admin: 11/17/19 05:51 Dose: 0.5 mg Promethazine HCl 25 mg/ Sodium (Chloride) 51 mls @ 100 mls/hr IV Q6H PRN PRN Reason: Nausea/Vomiting Last Admin: 11/19/19 09:40 Dose: 100 mls/hr Lactated Ringer's (Ringers, Lactated) 1,000 mls @ 100 mls/hr IV ASDIRECTED [facility] Stop: 11/20/19 18:29 Last Admin: 11/20/19 02:33 Dose: 100 mls/hr Meropenem/Sodium Chloride 500 (mg/ Premix) 50 mls @ 100 mls/hr IV Q6H [facility] Last Admin: 11/20/19 05:46 Dose: 100 mls/hr Levothyroxine Sodium (Levothyroxine) 75 mcg PO QAM [facility] Last Admin: 11/19/19 09:37 Dose: 75 mcg Miscellaneous Information (Remove Patch) 0 ea TRDERM DAILY [facility] Last Admin: 11/19/19 09:38 Dose: Not Given Miscellaneous Information (Remove Patch) 1 ea TRDERM ONETIME ONE Stop: 11/21/19 15:01 Morphine Sulfate (Morphine) 1 mg IVPUSH Q2H PRN PRN Reason: Pain Nicotine (Habitrol) 14 mg TRDERM DAILY [facility] Last Admin: 11/19/19 09:37 Dose: Not Given Ondansetron HCl (Zofran) 4 mg IVPUSH Q6H PRN PRN Reason: Nausea Last Admin: 11/19/19 08:27 Dose: 4 mg Prazosin Hcl [ (Prazosin] 5mg) 0 each PO BEDTIME PRN PRN Reason: NIGHTMARES [place] Carbonate (450 Mg*Pt Own Med*) 450 each PO BID [facility] Last Admin: 11/19/19 21:38 Dose: 450 each Cariprazine Hydrochloride [ Vraylar] 3 Mg 0 each PO DAILY [facility] Last Admin: 11/19/19 09:39 Dose: 1 each Sodium Chloride (Saline Flush) 10 ml FLUSH ASDIRECTED PRN PRN Reason: Keep Vein Open Last Admin: 11/16/19 23:40 Dose: 10 ml Trazodone HCl (Trazodone) 50 mg PO BEDTIME PRN PRN Reason: Insomnia Last Admin: 11/19/19 23:44 Dose: 50 mg Discontinued Medications Acetaminophen (Tylenol) 650 mg PO NOW ONE Stop: 11/17/19 05:15 Last Admin: 11/17/19 05:23 Dose: 650 mg Sodium Chloride (Normal Saline) 1,000 mls @ 999 mls/hr IV ASDIRECTED [facility] Last Admin: 11/16/19 20:57 Dose: 999 mls/hr Lactated Ringer's (Ringers, Lactated) 1,000 mls @ 999 mls/hr IV ASDIRECTED [facility] Last Admin: 11/16/19 21:57 Dose: 999 mls/hr Ceftriaxone Sodium 1 gm/ (Sodium Chloride) 100 mls @ 200 mls/hr IV ONETIME ONE Stop: 11/16/19 22:51 Last Admin: 11/17/19 10:07 Dose: Not Given Levofloxacin/Dextrose 750 mg/ (Premix) 150 mls @ 100 mls/hr IV ONETIME ONE Stop: 11/17/19 00:08 Last Admin: 11/16/19 23:14 Dose: 100 mls/hr Potassium Chloride/Sodium Chloride (Normal Saline With 40 Meq Kcl) 1,000 mls @ 150 mls/hr IV ASDIRECTED [facility] Last Admin: 11/17/19 00:25 Dose: 150 mls/hr Potassium Chloride/Sodium Chloride (Normal Saline With 40 Meq Kcl) 1,000 mls @ 150 mls/hr IV ASDIRECTED [facility] Last Admin: 11/18/19 10:48 Dose: 150 mls/hr Levofloxacin/Dextrose 750 mg/ (Premix) 150 mls @ 100 mls/hr IV Q24H [facility] Last Admin: 11/18/19 23:06 Dose: 100 mls/hr Sodium Chloride (Normal Saline) 500 mls @ 999 mls/min IV .BOLUS ONE Stop: 11/17/19 09:37 Last Admin: 11/17/19 09:48 Dose: 999 mls/min Magnesium Sulfate 2 gm/ Premix 50 mls @ 25 mls/hr IV ONETIME ONE Stop: 11/18/19 11:14 Last Admin: 11/18/19 10:48 Dose: 25 mls/hr Magnesium Sulfate (Magnesium Sulfate In Water Premix) Confirm Administered Dose 50 mls @ as directed .ROUTE .STK-MED ONE Stop: 11/18/19 10:41 Last Admin: 11/18/19 10:48 Dose: Not Given Dextrose/Sodium Chloride (Dextrose 5%-Normal Saline) 1,000 mls @ 50 mls/hr IV ASDIRECTED [facility] Last Admin: 11/18/19 15:02 Dose: 50 mls/hr Lactated Ringer's (Ringers, Lactated) 1,000 mls @ 999 mls/hr IV .BOLUS ONE Stop: 11/19/19 06:28 Last Admin: 11/19/19 05:35 Dose: 999 mls/hr Meropenem 1 gm/ Sodium (Chloride) 100 mls @ 200 mls/hr IV Q8H [facility] Last Admin: 11/19/19 06:37 Dose: Not Given Cefoxitin Sodium 2 gm/ Premix 50 mls @ 100 mls/hr IV Q6HR [facility] Last Admin: 11/19/19 07:33 Dose: 100 mls/hr Lactated Ringer's (Ringers, Lactated) 500 mls @ 999 mls/hr IV .BOLUS ONE Stop: 11/19/19 07:00 Last Admin: 11/19/19 06:35 Dose: 999 mls/hr [facility]ulin [facility] Last Admin: 11/17/19 18:25 Dose: Not Given Iopamidol (Isovue-300 (61%)) 100 ml IVPUSH ONETIME ONE Stop: 11/16/19 22:41 Last Admin: 11/16/19 23:40 Dose: 100 ml Ketorolac Tromethamine (Toradol) 30 mg IVPUSH ONETIME ONE Stop: 11/16/19 21:39 Last Admin: 11/16/19 21:48 Dose: 30 mg Ketorolac Tromethamine (Toradol) 30 mg IV Q6H PRN PRN Reason: Pain (moderate 4-6) Last Admin: 11/18/19 17:44 Dose: 30 mg [place] Carbonate (Lithobid) 450 mg PO Q8HR [facility] Stop: 11/18/19 14:01 Meropenem (Merrem) 1 gm IVPUSH Q8H [facility] Last Admin: 11/19/19 06:37 Dose: Not Given [place] Carbonate (450 Mg) 0 each PO BID [facility] Ondansetron HCl (Zofran) 4 mg IVPUSH ONETIME ONE Stop: 11/16/19 20:23 Last Admin: 11/16/19 20:58 Dose: 4 mg Ondansetron HCl (Zofran) 4 mg IVPUSH ONETIME ONE Stop: 11/17/19 00:11 Last Admin: 11/17/19 00:20 Dose: 4 mg Cariprazine Hydrochloride [ Vraylar] 3 Mg 0 each PO DAILY [facility] Last Admin: 11/17/19 09:50 Dose: Not Given [place] Carbonate (450 Mg) 450 each PO BID [facility] Last Admin: 11/17/19 09:50 Dose: Not Given Prazosin Hcl [ (Prazosin] 5mg) 0 each PO BEDTIME PRN PRN Reason: NIGHTMARES Cariprazine Hydrochloride [ Vraylar] 3 Mg 0 each PO DAILY [facility] Lenn[place] Carbonate (450 Mg) 0 each PO BID [facility] Lennox Carbonate (450 Mg*Pt Own Med*) 450 each PO Q8H [facility] Stop: 11/18/19 10:01 Last Admin: 11/18/19 10:20 Dose: 450 each Scopolamine (Transderm-Scop) 1.5 mg TOP ONETIME ONE Stop: 11/18/19 14:49 Last Admin: 11/18/19 15:00 Dose: 1.5 mg - Exam Quality Assessment: DVT Prophylaxis General: Alert, Oriented, Cooperative, No Acute Distress HEENT: Pupils Equal, Pupils Reactive, Mucous Membr. Moist/[place] Neck: Supple, Trachea Midline Lungs: Clear to Auscultation, Normal Respiratory Effort Cardiovascular: Regular Rate, Regular Rhythm GI/Abdominal Exam: Normal Bowel Sounds, Soft, Non-Tender, No Distention (Female) Exam: Deferred Back Exam: Normal Inspection, Full Range of Motion, CVA Tenderness (L) ( improved ), CVA Tenderness (R) (improved ) Extremities: Normal Inspection, Normal Range of Motion, Non-Tender, No Pedal Edema, Normal Capillary Refill Peripheral Pulses: 2+: Radial (L), Radial (R), Dorsalis Pedis (L), Dorsalis Pedis (R) Skin: Warm, Dry, Intact Neurological: No New Focal Deficit Psy/Mental Status: Alert, Normal Affect, Normal Mood Sepsis Event Note - Evaluation Sepsis Screening Result: No Definite Risk - Focused Exam Vital Signs: Vital Signs Temp Pulse Resp BP Pulse Ox 11/20/19 04:48 99.0 F 81 36 H 115/79 100 11/19/19 23:58 100.4 F 11/19/19 23:54 100.4 F 82 36 H 130/99 H 99 11/19/19 21:34 98.8 F 89 36 H 135/97 H 100 Date Exam was Performed: 11/20/19 Time Exam was Performed: 15:11 - Problem List & Annotations (1) Pyelonephritis SNOMED Code(s): 19732793 Code(s): N12 - TUBULO-INTERSTITIAL NEPHRITIS, NOT SPCF ACUTE OR CHRONIC Status: Acute Priority: High Current Visit: Yes (2) Hypertension SNOMED Code(s): 11424718 Code(s): I10 - ESSENTIAL (PRIMARY) HYPERTENSION Status: Chronic Priority : Medium Current Visit: No Qualifiers: Hypertension type: unspecified Qualified Code(s): I10 - Essential (primary ) hypertension (3) HB (heart block) SNOMED Code(s): 349551435 Code(s): I45.9 - CONDUCTION DISORDER, UNSPECIFIED Status: Chronic Priority: Medium Current Visit: No (4) Status post placement of implantable loop recorder SNOMED Code(s): 345162396, 327581110, 274246345 Code(s): Z95.818 - PRESENCE OF OTHER CARDIAC IMPLANTS AND GRAFTS Status: Chronic Priority: Low Current Visit: No (5) Asthma SNOMED Code(s): 630743166 Code(s): J45.909 - UNSPECIFIED ASTHMA, UNCOMPLICATED Status: Chronic Priority: Low Current Visit: No Qualifiers: Asthma severity: unspecified severity Asthma persistence: unspecified Asthma complication type: unspecified Qualified Code(s): J45.909 - Unspecified asthma, uncomplicated (6) GERD (gastroesophageal reflux disease) SNOMED Code(s): 914547692 Code(s): K21.9 - GASTRO-ESOPHAGEAL REFLUX DISEASE WITHOUT ESOPHAGITIS Status: Chronic Priority: Low Current Visit: No Qualifiers: Esophagitis presence: esophagitis presence not specified Qualified Code(s) : K21.9 - Gastro-esophageal reflux disease without esophagitis (7) S/P LEEP of cervix SNOMED Code(s): 961534364747419, 30217243, 091655409467633 Code(s): Z98.890 - OTHER SPECIFIED POSTPROCEDURAL STATES Status: Chronic Priority: Low Current Visit: No (8) Asperger syndrome SNOMED Code(s): 52265468 Code(s): F84.5 - ASPERGER'S SYNDROME Status: Chronic Priority: Low Current Visit: No (9) Stroke-like symptoms SNOMED Code(s): 436976543 Code(s): R29.90 - UNSPECIFIED SYMPTOMS AND SIGNS INVOLVING THE NERVOUS SYSTEM Status: Chronic Priority: Medium Current Visit: Yes Annotation/ Comment:: in 2015 (10) Autism SNOMED Code(s): 489331631 Code(s): F84.0 - AUTISTIC DISORDER Status: Chronic Priority: Medium Current Visit: No (11) Mood swings SNOMED Code(s): 21746070 Code(s): R45.86 - EMOTIONAL LABILITY Status: Chronic Priority: Low Current Visit: No (12) PTSD (post-traumatic stress disorder) SNOMED Code(s): 72736871 Code(s): F43.10 - POST-TRAUMATIC STRESS DISORDER, UNSPECIFIED Status: Chronic Priority: Medium Current Visit: No (13) History of suicide attempt SNOMED Code(s): 188837676, 247260862 Code(s): Z91.5 - PERSONAL HISTORY OF SELF-HARM Status: Chronic Priority: Low Current Visit: No (14) History of suicidal ideation SNOMED Code(s): 387235885 Code(s): Z86.59 - PERSONAL HISTORY OF OTHER MENTAL AND BEHAVIORAL DISORDERS Status: Chronic Priority: Low Current Visit: No (15) Type II diabetes mellitus SNOMED Code(s): 65427268 Code(s): E11.9 - TYPE 2 DIABETES MELLITUS WITHOUT COMPLICATIONS Status: Chronic Priority: Medium Current Visit: Yes Qualifiers: Diabetes mellitus emt intermediate insulin use: unspecified correction insulin use status Diabetes mellitus complication status: with other specified complication Qualified Code(s): E11.69 - Type 2 diabetes mellitus with other specified complication (16) Obesity SNOMED Code(s): 179298608, 177947771 Code(s): E66.9 - OBESITY, UNSPECIFIED Status: Chronic Priority: Low Current Visit: No Qualifiers: Obesity type: unspecified obesity type Obesity classification: adult class 3 (BMI >= 40) Serious obesity comorbidity presence: unspecified whether serious comorbidity present Body mass index: BMI 45.0-49.9 Qualified Code(s) : E66.01 - Morbid (severe) obesity due to excess calories; Z68.42 - Body mass index (BMI) 45.0-49.9, adult (17) Anxiety SNOMED Code(s): 49858319 Code(s): F41.9 - ANXIETY DISORDER, UNSPECIFIED Status: Chronic Priority: Low Current Visit: No (18) Bipolar disorder SNOMED Code(s): 93865774 Code(s): F31.9 - BIPOLAR DISORDER, UNSPECIFIED Status: Chronic Priority: Medium Current Visit: Yes (19) Depressive disorder SNOMED Code(s): 31033209 Code(s): F32.9 - MAJOR DEPRESSIVE DISORDER, SINGLE EPISODE, UNSPECIFIED Status: Chronic Priority: Low Current Visit: No (20) Current smoker SNOMED Code(s): 68656379 Code(s): F17.200 - NICOTINE DEPENDENCE, UNSPECIFIED, UNCOMPLICATED Status: Chronic Priority: Medium Current Visit: Yes (21) Acute renal injury SNOMED Code(s): 89885470, 11840386 Code(s): N17.9 - ACUTE KIDNEY FAILURE, UNSPECIFIED Status: Acute Priority : High Current Visit: Yes (22) High anion gap metabolic acidosis SNOMED Code(s): 20606634 Code(s): E87.2 - ACIDOSIS Status: Acute Priority: High Current Visit: Yes (23) Hypomagnesemia SNOMED Code(s): 493976379 Code(s): E83.42 - HYPOMAGNESEMIA Status: Resolved Priority: High Current Visit: Yes - Problem List Review Problem List Initiated/Reviewed/Updated: Yes - My Orders Last 24 Hours: My Active Orders 11/19/19 08:30 Lactated Ringers [Ringers, Lactated] 1,000 ml IV ASDIRECTED 11/19/19 16:05 Orthostatic Vital Signs [RC] ASDIRECTED 11/21/19 15:00 Remove Patch 1 ea TRDERM ONETIME ONE - Plan Plan:: I/P: Acute: Pyelonephritis -Reports fever, cough, congestion, vomiting, back pain, diarrhea for past few days -Temp of 103 at home; 102 here -Bilateral CVA tenderness -Sepsis criteria: + suspected bacterial infection; temp >100.9, >12 WBC, HR > 90, RR >20; No signs of organ dysfunction per criteria -Does not meet sepsis criteria -Positive UA in ED -Blood cultures negative thus far -Urine culture: ESBL E.coli -WBC 16.61-->15.65-->10.51-->9.19 -Lactic acid 1.0-->0.6-->1.0 -Procalcitonin 1.94-->0.92-->0.81 -Given fluid boluses in ED -Started on Levaquin 750mg in ED - continue for now -CT in ED shows bilateral abnormal enhancement of the kidneys. -Ambulate -IV fluids as ordered -Pain medications as ordered -Repeat CT abdomen if fevers continue Acute renal injury: -BUN 7-->8-->5 -Creatinine 1.3-->1.1-->1.2 -eGFR 51--> greater than 60-->56 -IV fluids as ordered -Poor oral intake High anion gap metabolic acidosis -Anion gap 19.2-->16.5-->13.6-->17.1 -IV fluids as ordered Daily smoker -Nicotine patch -Cessation counseling S/P implanted loop recorder -Reportedly placed November 2018 -Placed due to "heart block" -Telemetry S/P Hypomagnesemia -Magnesium 1.7-->2.0 -Supplemented Chronic: Hypertension "heart block" asthma GERD LEEP procedure for cervical dysplasia in November 2018 Asperger syndrome stroke-like symptoms with neurological deficits in 2014 anxiety autism bipolar - Check lithium level depression mood swings PTSD Hx/o suicide attempts hx/o suicidal ideation type II DM - A1C on 10/14/19 was 5.2% hypothyroidism obesity Plan: Admit to medical floor observation status -> upgrade to inpatient with telemetry --> discontinue telemetry She is ambulatory so no need for PT/OT at this time Other orders as indicated above Routine AM labs Home medications as ordered DVT Prophylaxis: Lovenox Code status: Full Code PCP: Dr. Hinojosa LOS >96 hrs due to need for continued IV abx, delay in starting proper abx treatment due to ESBL E. Coli.
[2019-11-20] MEDS: Levothyroxine 75 MCG Tab PO SCH (08:21)
[2019-11-20] MEDS: cloNIDine 0.1 MG Tab PO SCH (08:21)
[2019-11-20] MEDS: Nicotine 14 MG/24 Hr Patch TRDERM SCH (08:21)
[2019-11-20] MEDS: LITHIUM CARBONATE 450 MG PO SCH ×2 (08:22→21:00)
[2019-11-20] MEDS: CARIPRAZINE HYDROCHLORIDE 3 MG PO SCH (08:37)
[2019-11-20] MEDS: Enoxaparin 40 MG/0.4 ML Syringe SUBCUT SCH (12:03)
[2019-11-20] MEDS: ClonazePAM 0.5 MG Tab PO SCH (21:00)
[2019-11-20] MEDS: Acetaminophen/HYDROcodone 325-5 MG Tab PO PRN (22:33)
[2019-11-20] MEDS: traZODone 50 MG Tab PO PRN (22:33)
[2019-11-21] MEDS: Meropenem Premix 500 MG in Premix Bag 1 BAG IV SCH ×2 (05:14→12:15)
[2019-11-21] MEDS: cloNIDine 0.1 MG Tab PO SCH (08:22)
[2019-11-21] MEDS: Levothyroxine 75 MCG Tab PO SCH (08:22)
[2019-11-21] MEDS: Acetaminophen/HYDROcodone 325-5 MG Tab PO PRN (08:23)
[2019-11-21] MEDS: CARIPRAZINE HYDROCHLORIDE 3 MG PO SCH (08:23)
[2019-11-21] MEDS: Nicotine 14 MG/24 Hr Patch TRDERM SCH (08:23)
[2019-11-21] MEDS: LITHIUM CARBONATE 450 MG PO SCH (08:24)
[2019-11-21] MEDS: Enoxaparin 40 MG/0.4 ML Syringe SUBCUT SCH (12:14)
--- NOTE | 2019-11-21 13:14 | PCM.DCSUM1 ---
Discharge Summary - Hospital Course HPI Initial Comments: Uvaldo Hazel is a 24 yo female who presented to our ED on the evening of 2019 with fever, cough, congestion, vomiting, diarrhea, which have all been present for the past 2 days. She has been febrile at home with a temperature of 103 and is treated that with Tylenol. Reports any oral intake causes her to vomit. She denies any abdominal pain. Does report that multiple family members in the house have had respiratory symptoms but no vomiting or diarrhea. She does have a history of asthma but denies any current symptoms. She had a cardiac loop recorder placed in October due to an episode of "heart block". In the ED temp was 100.3. Pulse 107. Respirations 20. Blood pressure 113/73. Pulse ox 97%. WBC is elevated at 16.61. Hemoglobin 13.8. Hematocrit 41.4. Platelets are low at 221,000. Neutrophils are elevated at 84.1%. Sodium is good at 138. Potassium is low at 3.2. Anion gap is very high at 19.2. BUN is 7. Creatinine 1.3. GFR is 51. Glucose 130. Magnesium is 1.9. Bilirubin 0.8. AST is 15, ALT 29, alkaline phosphatase 74. Protein is 8.2. Albumin 3.4. INR is 1.22. Lactic acid is 1.0. UA is positive with cloudy urine, 3+ protein, 2+ occult blood, positive nitrite, 2+ urobilinogen, 3+ leukocyte esterase, 5-10 RBCs, 75-100 WBCs, few WBC clumps, 5-10 squamous epithelial cells , many bacteria. She is given two 1 L boluses and started on NS with 40 mEq of KCl. She started on Levaquin and given Toradol for pain as well as Zofran. Blood cultures were obtained and are pending. Urine cultures were obtained and are pending. CT abdomen is in interpreted by Dr. Ford as "1. Slightly abnormal enhancement of the kidneys. Uncertain if this is due to bilateral pyelonephritis or due to contrast administration. Please correlate with the patient's symptoms. 2. No additional abnormalities appreciated CT study of the abdomen and pelvis." She carries a history of: Hypertension, "heart block", asthma, GERD, LEEP procedure for cervical dysplasia in November 2018, Asperger syndrome, strokelike symptoms with neurological deficits in 2015, anxiety, autism, bipolar, depression, mood swings, PTSD, suicide attempts, suicidal ideation, type II DM, hypothyroidism, obesity. She is a current daily smoker. Her PCP is Dr. Linda Ureña. She is a full code. She subsequently admitted to the floor observation status for management of her pyelonephritis. Diagnosis: Stroke: No - Discharge Data Discharge Date: 11/21/19 (Admit date: 11/16/19) Discharge Disposition: Home, Self-Care 01 Condition: Good - Referral to Home Health Primary Care Physician: Estuardo Denson MD - Discharge Diagnosis/Problem(s) (1) Pyelonephritis SNOMED Code(s): 11246682 ICD Code: N12 - TUBULO-INTERSTITIAL NEPHRITIS, NOT SPCF ACUTE OR CHRONIC Status: Acute Priority: High Current Visit: Yes (2) Hypertension SNOMED Code(s): 88389521 ICD Code: I10 - ESSENTIAL (PRIMARY) HYPERTENSION Status: Chronic Priority : Medium Current Visit: No Qualifiers: Hypertension type: unspecified Qualified Code(s): I10 - Essential (primary ) hypertension (3) HB (heart block) SNOMED Code(s): 543375015 ICD Code: I45.9 - CONDUCTION DISORDER, UNSPECIFIED Status: Chronic Priority: Medium Current Visit: No (4) Status post placement of implantable loop recorder SNOMED Code(s): 455478704, 457138513, 047977157 ICD Code: Z95.818 - PRESENCE OF OTHER CARDIAC IMPLANTS AND GRAFTS Status: Chronic Priority: Low Current Visit: No (5) Asthma SNOMED Code(s): 907034769 ICD Code: J45.909 - UNSPECIFIED ASTHMA, UNCOMPLICATED Status: Chronic Priority: Low Current Visit: No Qualifiers: Asthma severity: unspecified severity Asthma persistence: unspecified Asthma complication type: unspecified Qualified Code(s): J45.909 - Unspecified asthma, uncomplicated (6) GERD (gastroesophageal reflux disease) SNOMED Code(s): 448710924 ICD Code: K21.9 - GASTRO-ESOPHAGEAL REFLUX DISEASE WITHOUT ESOPHAGITIS Status: Chronic Priority: Low Current Visit: No Qualifiers: Esophagitis presence: esophagitis presence not specified Qualified Code(s) : K21.9 - Gastro-esophageal reflux disease without esophagitis (7) S/P LEEP of cervix SNOMED Code(s): 514461391660275, 13805522, 323812940777391 ICD Code: Z98.890 - OTHER SPECIFIED POSTPROCEDURAL STATES Status: Chronic Priority: Low Current Visit: No (8) Asperger syndrome SNOMED Code(s): 76269738 ICD Code: F84.5 - ASPERGER'S SYNDROME Status: Chronic Priority: Low Current Visit: No (9) Stroke-like symptoms SNOMED Code(s): 588206246 ICD Code: R29.90 - UNSPECIFIED SYMPTOMS AND SIGNS INVOLVING THE NERVOUS SYSTEM Status: Chronic Priority: Medium Current Visit: Yes Problem Details: in 2014 (10) Autism SNOMED Code(s): 698450336 ICD Code: F84.0 - AUTISTIC DISORDER Status: Chronic Priority: Medium Current Visit: No (11) Mood swings SNOMED Code(s): 34684352 ICD Code: R45.86 - EMOTIONAL LABILITY Status: Chronic Priority: Low Current Visit: No (12) PTSD (post-traumatic stress disorder) SNOMED Code(s): 19879336 ICD Code: F43.10 - POST-TRAUMATIC STRESS DISORDER, UNSPECIFIED Status: Chronic Priority: Medium Current Visit: No (13) History of suicide attempt SNOMED Code(s): 961234685, 095144003 ICD Code: Z91.5 - PERSONAL HISTORY OF SELF-HARM Status: Chronic Priority : Low Current Visit: No (14) History of suicidal ideation SNOMED Code(s): 429782739 ICD Code: Z86.59 - PERSONAL HISTORY OF OTHER MENTAL AND BEHAVIORAL DISORDERS Status: Chronic Priority: Low Current Visit: No (15) Type II diabetes mellitus SNOMED Code(s): 60284408 ICD Code: E11.9 - TYPE 2 DIABETES MELLITUS WITHOUT COMPLICATIONS Status: Chronic Priority: Medium Current Visit: Yes Qualifiers: Diabetes mellitus usp insulin use: unspecified usp insulin use status Diabetes mellitus complication status: with other specified complication Qualified Code(s): E11.69 - Type 2 diabetes mellitus with other specified complication (16) Obesity SNOMED Code(s): 468839271, 651269532 ICD Code: E66.9 - OBESITY, UNSPECIFIED Status: Chronic Priority: Low Current Visit: No Qualifiers: Obesity type: unspecified obesity type Obesity classification: adult class 3 (BMI >= 40) Serious obesity comorbidity presence: unspecified whether serious comorbidity present Body mass index: BMI 45.0-49.9 Qualified Code(s) : E66.01 - Morbid (severe) obesity due to excess calories; Z68.42 - Body mass index (BMI) 45.0-49.9, adult (17) Anxiety SNOMED Code(s): 98356444 ICD Code: F41.9 - ANXIETY DISORDER, UNSPECIFIED Status: Chronic Priority : Low Current Visit: No (18) Bipolar disorder SNOMED Code(s): 38420687 ICD Code: F31.9 - BIPOLAR DISORDER, UNSPECIFIED Status: Chronic Priority : Medium Current Visit: Yes (19) Depressive disorder SNOMED Code(s): 82651541 ICD Code: F32.9 - MAJOR DEPRESSIVE DISORDER, SINGLE EPISODE, UNSPECIFIED Status: Chronic Priority: Low Current Visit: No (20) Current smoker SNOMED Code(s): 58886403 ICD Code: F17.200 - NICOTINE DEPENDENCE, UNSPECIFIED, UNCOMPLICATED Status : Chronic Priority: Medium Current Visit: Yes (21) Acute renal injury SNOMED Code(s): 93828538, 14243688 ICD Code: N17.9 - ACUTE KIDNEY FAILURE, UNSPECIFIED Status: Acute Priority: High Current Visit: Yes (22) High anion gap metabolic acidosis SNOMED Code(s): 29357536 ICD Code: E87.2 - ACIDOSIS Status: Acute Priority: High Current Visit: Yes (23) Hypomagnesemia SNOMED Code(s): 485318919 ICD Code: E83.42 - HYPOMAGNESEMIA Status: Resolved Priority: High Current Visit: Yes (24) ESBL (extended spectrum beta-lactamase) producing bacteria infection SNOMED Code(s): 191750529 ICD Code: A49.9 - BACTERIAL INFECTION, UNSPECIFIED; Z16.12 - EXTENDED SPECTRUM BETA LACTAMASE (ESBL) RESISTANCE Status: Acute Priority: High Current Visit: Yes - Patient Summary/Data Consults: Consultations 11/17/19 08:44 Consult to Spiritual Care [CONS] Routine Labs Pending at D/C: None Recommended Follow-up Testing/Procedures: Follow-up with PCP within 5-7 days of discharge. Follow-up with cardiology, EP, and psychiatry as scheduled. Hospital Course: Uvaldo was to the floor for pyelonephritis. She also was experiencing significant nausea and vomiting. This did improve as her symptoms of Imtiaz nephritis improved. She was initially started on IV Rocephin while awaiting urine cultures. WBC did trend down however the patient continued to experience symptoms. She was then switched to cefepime and ultimately meropenem once cultures grew out ESBL E. coli with multiple resistant antibiotics. She was given IV fluids and electrolytes were supplemented. Home psychiatric medications were continued and her mother did note that she has been having good progress with these over the last few weeks, as had been recently changed. Cotati level was checked and was slightly low. It was noted prior to admission that the patient was having difficulty keeping her medications down if she was vomiting frequently. She is a smoker who did refuse nicotine patches while here and on discharge. She was provided contact information for resources to quit smoking at discharge. She did recently have a implanted loop recorder placed due to a heart block that was noted on Holter monitor and reportedly in the ED. She was on telemetry for majority of the time while here and although tachycardic no block was noted. Family did report that she does have multiple medical test coming up a week from today in [place] including a stress test, sleep deprived EEG, cardiology appointment, and others. Due to no real overall antibiotic choices for discharge patient will return over the next 3 days for daily Invanz infusions. She was advised to remain home from work next week, as she only works Sunday, Sunday, and Sunday. She was told that she could return to work the following Sunday for her regular shift. Is to follow-up with her primary care provider within 5 to 7 days of discharge. Recommended she be sure to follow-up with her specialist in [place] as scheduled. He did not have any nausea or vomiting to discharge and reports she feels good. She was discharged home today. Home medications were otherwise continued. - Patient Instructions Diet: Diabetic Diet Activity: As Tolerated Driving: Do Not Drive Showering/Bathing: May Shower Notify Provider of: Fever, Increased Pain, Nausea and/or Vomiting Other/Special Instructions: Follow-up with primary care provider within 5-7 days of discharge, sooner if needed. Follow-up with specialists in [place] regarding heart block, etc. as scheduled. You will need 3 more days of IV antibiotics. This will be set up for you prior to discharge. Continue to drink fluids and stay hydrated. Take it easy the next several days. Resume home medications as ordered. May return to work on 12/01/19 without restrictions. Should symptoms return or worsen, contact primary care provider or return to the Emergency Department. - Discharge Plan *PRESCRIPTION DRUG MONITORING PROGRAM REVIEWED*: No *COPY OF PRESCRIPTION DRUG MONITORING REPORT IN PATIENT CHERY: No Prescriptions/Med Rec: Ertapenem [INVanz] 1 gm IV DAILY #3 vial Home Medications: Home Meds ClonazePAM [KlonoPIN] 0.5 mg PO BEDTIME 07/10/19 [History] Levothyroxine 75 mcg PO QAM 07/10/19 [History] Prazosin HCl [Prazosin] 6 - 8 mg PO BEDTIME PRN 07/10/19 [History] metFORMIN [Glucophage] 500 mg PO BEDTIME 07/10/19 [History] traZODone HCl [Trazodone HCl] 50 mg PO BEDTIME PRN 07/10/19 [History] Cotati Carbonate [Eskalith CR] 450 mg PO BID 11/16/19 [History] Cariprazine Hydrochloride [Vraylar] 3 mg PO DAILY 11/17/19 [History] cloNIDine [Catapres] 0.1 mg PO DAILY 11/17/19 [History] Ertapenem [INVanz] 1 gm IV DAILY #3 vial 11/21/19 [Rx] Oxygen Therapy Mode: Room Air Patient Handouts: Peripheral Intravenous Catheter Placement, Adult, Pyelonephritis, Adult, ESBL Infection Information, Sepsis, Adult, Steps to Quit Smoking Referrals: Estuardo Denson MD [Primary Care Provider] - 11/28/19 9:30 am (Please see Dr. Linda ureña on November 28 at 9:30AM.) - Discharge Summary/Plan Comment DC Time >30 min.: Yes (45 mins ) - General Info Date of Service: 11/21/19 Admission Dx/Problem (Free Text: Admission Diagnosis/Problem Admission Diagnosis/Problem Pyelonephritis Functional Status: Reports: Pain Controlled, Tolerating Diet, Ambulating, Urinating. Denies: New Symptoms - Review of Systems General: Reports: No Symptoms. Denies: Fever, Weakness, Fatigue, Malaise, Chills HEENT: Reports: No Symptoms. Denies: Headaches, Sore Throat Pulmonary: Reports: No Symptoms. Denies: Shortness of Breath, Cough, Sputum, Wheezing Cardiovascular: Reports: No Symptoms. Denies: Chest Pain, Palpitations, Dyspnea on Exertion Gastrointestinal: Reports: No Symptoms. Denies: Abdominal Pain, Constipation, Diarrhea, Nausea, Vomiting Genitourinary: Reports: No Symptoms. Denies: Pain Musculoskeletal: Reports: No Symptoms Skin: Reports: No Symptoms. Denies: Cyanosis Neurological: Reports: No Symptoms. Denies: Confusion, Difficulty Walking, Gait Disturbance Psychiatric: Reports: No Symptoms - Patient Data Vitals - Most Recent: Last Vital Signs Temp 99.1 F 11/21/19 08:18 Pulse 76 11/21/19 08:18 Resp 32 H 11/21/19 08:18 BP 123/81 11/21/19 08:22 Pulse Ox 96 11/21/19 08:18 Orthostatic Blood Pressure [ 136/91 Standing] Orthostatic Blood Pressure [ 144/61 Sitting] Orthostatic Blood Pressure [ 151/92 Supine] Weight - Most Recent: 272 lb 9.6 oz I&O - Last 24 hours: Intake & Output 11/20/19 11/21/19 11/21/19 22:59 06:59 14:59 Intake Total 2984 900 360 Output Total 2250 1600 Balance 734 -700 360 Lab Results - Last 24 hrs: Laboratory Results - last 24 hr 11/20/19 11/20/19 11/20/19 Range/Units 05:40 15:36 15:36 WBC 7.58 (3.98-10.04) K/mm3 RBC 4.06 (3.98-5.22) M/mm3 Hgb 12.1 (11.2-15.7) gm/dl Hct 38.3 (34.1-44.9) % MCV 94.3 (79.4-94.8) fl MCH 29.8 (25.6-32.2) pg MCHC 31.6 L (32.2-35.5) g/dl RDW Std Deviation 44.2 (36.4-46.3) fL Plt Count 270 (182-369) K/mm3 MPV 11.0 (9.4-12.3) fl Neut % (Auto) 63.2 (34.0-71.1) % Lymph % (Auto) 22.6 (19.3-51.7) % [place] % (Auto) 9.4 (4.7-12.5) % Eos % (Auto) 4.0 (0.7-5.8) Baso % (Auto) 0.5 (0.1-1.2) % Neut # (Auto) 4.80 (1.56-6.13) K/mm3 Lymph # (Auto) 1.71 (1.18-3.74) K/mm3 [place] # (Auto) 0.71 H (0.24-0.36) K/mm3 Eos # (Auto) 0.30 (0.04-0.36) K/mm3 Baso # (Auto) 0.04 (0.01-0.08) K/mm3 Manual Slide Review Abnormal smear Sodium 142 (136-145) mEq/L Potassium 4.0 (3.5-5.1) mEq/L Chloride 108 H (98-107) mEq/L Carbon Dioxide 22 (21-32) mEq/L Anion Gap 16.0 H (5-15) BUN 9 (7-18) mg/dL Creatinine 1.1 H (0.55-1.02) mg/dL Est Cr Clr Drug Dosing 66.36 mL/min Estimated GFR (MDRD) > 60 (>60) mL/min BUN/Creatinine Ratio 8.2 L (14-18) Glucose 145 H (74-106) mg/dL Calcium 9.4 (8.5-10.1) mg/dL Phosphorus 2.4 L (2.6-4.7) mg/dL Magnesium 2.0 (1.8-2.4) mg/dl Cotati 0.52 L (0.60-1.20) mEq/L 11/21/19 11/21/19 Range/Units 05:09 05:09 WBC 8.51 (3.98-10.04) K/mm3 RBC 4.29 (3.98-5.22) M/mm3 Hgb 12.6 (11.2-15.7) gm/dl Hct 40.1 (34.1-44.9) % MCV 93.5 (79.4-94.8) fl MCH 29.4 (25.6-32.2) pg MCHC 31.4 L (32.2-35.5) g/dl RDW Std Deviation 44.2 (36.4-46.3) fL Plt Count 274 (182-369) K/mm3 MPV 10.9 (9.4-12.3) fl Neut % (Auto) 54.2 (34.0-71.1) % Lymph % (Auto) 31.7 (19.3-51.7) % [place] % (Auto) 8.2 (4.7-12.5) % Eos % (Auto) 4.8 (0.7-5.8) Baso % (Auto) 0.6 (0.1-1.2) % Neut # (Auto) 4.61 (1.56-6.13) K/mm3 Lymph # (Auto) 2.70 (1.18-3.74) K/mm3 [place] # (Auto) 0.70 H (0.24-0.36) K/mm3 Eos # (Auto) 0.41 H (0.04-0.36) K/mm3 Baso # (Auto) 0.05 (0.01-0.08) K/mm3 Manual Slide Review Abnormal smear Sodium 144 (136-145) mEq/L Potassium 4.1 (3.5-5.1) mEq/L Chloride 108 H (98-107) mEq/L Carbon Dioxide 26 (21-32) mEq/L Anion Gap 14.1 (5-15) BUN 7 (7-18) mg/dL Creatinine 1.0 (0.55-1.02) mg/dL Est Cr Clr Drug Dosing 73.00 mL/min Estimated GFR (MDRD) > 60 (>60) mL/min BUN/Creatinine Ratio 7.0 L (14-18) Glucose 90 (74-106) mg/dL Calcium 9.0 (8.5-10.1) mg/dL Phosphorus (2.6-4.7) mg/dL Magnesium 1.9 (1.8-2.4) mg/dl Cotati (0.60-1.20) mEq/L KEENA Results - Last 24 hrs: Microbiology 11/16/19 21:54 Urine Culture - Final Urine, Clean Catch (Esbl) Escherichia Coli 11/16/19 22:57 Aerobic Blood Culture - Preliminary Blood - Venous - Lab Draw NO GROWTH AFTER 4 DAYS Anaerobic Blood Culture - Preliminary NO GROWTH AFTER 4 DAYS 11/16/19 22:50 Aerobic Blood Culture - Preliminary Blood - Venous NO GROWTH AFTER 4 DAYS Anaerobic Blood Culture - Preliminary NO GROWTH AFTER 4 DAYS Med Orders - Current: Current Medications Acetaminophen (Tylenol) 650 mg PO Q4H PRN PRN Reason: Pain (Mild 1-3)/fever Last Admin: 11/19/19 23:58 Dose: 650 mg Hydrocodone Bitart/Acetaminophen ([place] 325-5 Mg) 1 tab PO Q4H PRN PRN Reason: Pain (moderate 4-6) Last Admin: 11/21/19 08:23 Dose: 1 tab Clonazepam (Klonopin) 0.5 mg PO BEDTIME [facility] Last Admin: 11/20/19 21:00 Dose: 0.5 mg Clonidine HCl (Catapres) 0.1 mg PO DAILY [facility] Last Admin: 11/21/19 08:22 Dose: 0.1 mg Enoxaparin Sodium (Lovenox) 40 mg SUBCUT 1200 [facility] Last Admin: 11/21/19 12:14 Dose: 40 mg Hydromorphone HCl (Dilaudid) 0.5 mg IVPUSH Q2H PRN PRN Reason: Pain Last Admin: 11/17/19 05:51 Dose: 0.5 mg Promethazine HCl 25 mg/ Sodium (Chloride) 51 mls @ 100 mls/hr IV Q6H PRN PRN Reason: Nausea/Vomiting Last Admin: 11/19/19 09:40 Dose: 100 mls/hr Meropenem/Sodium Chloride 500 (mg/ Premix) 50 mls @ 100 mls/hr IV Q6H [facility] Last Admin: 11/21/19 12:15 Dose: 100 mls/hr Levothyroxine Sodium (Levothyroxine) 75 mcg PO QAM [facility] Last Admin: 11/21/19 08:22 Dose: 75 mcg Miscellaneous Information (Remove Patch) 0 ea TRDERM DAILY [facility] Last Admin: 11/21/19 08:24 Dose: Not Given Miscellaneous Information (Remove Patch) 1 ea TRDERM ONETIME ONE Stop: 11/21/19 15:01 Morphine Sulfate (Morphine) 1 mg IVPUSH Q2H PRN PRN Reason: Pain Nicotine (Habitrol) 14 mg TRDERM DAILY [facility] Last Admin: 11/21/19 08:23 Dose: Not Given Ondansetron HCl (Zofran) 4 mg IVPUSH Q6H PRN PRN Reason: Nausea Last Admin: 11/19/19 08:27 Dose: 4 mg Prazosin Hcl [ (Prazosin] 5mg) 0 each PO BEDTIME PRN PRN Reason: NIGHTMARES Cotati Carbonate (450 Mg*Pt Own Med*) 450 each PO BID [facility] Last Admin: 11/21/19 08:24 Dose: 450 each Cariprazine Hydrochloride [ Vraylar] 3 Mg 0 each PO DAILY [facility] Last Admin: 11/21/19 08:23 Dose: 1 each Sodium Chloride (Saline Flush) 10 ml FLUSH ASDIRECTED PRN PRN Reason: Keep Vein Open Last Admin: 11/16/19 23:40 Dose: 10 ml Trazodone HCl (Trazodone) 50 mg PO BEDTIME PRN PRN Reason: Insomnia Last Admin: 11/19/19 23:44 Dose: 50 mg Discontinued Medications Acetaminophen (Tylenol) 650 mg PO NOW ONE Stop: 11/17/19 05:15 Last Admin: 11/17/19 05:23 Dose: 650 mg Sodium Chloride (Normal Saline) 1,000 mls @ 999 mls/hr IV ASDIRECTED [facility] Last Admin: 11/16/19 20:57 Dose: 999 mls/hr Lactated Ringer's (Ringers, Lactated) 1,000 mls @ 999 mls/hr IV ASDIRECTED [facility] Last Admin: 11/16/19 21:57 Dose: 999 mls/hr Ceftriaxone Sodium 1 gm/ (Sodium Chloride) 100 mls @ 200 mls/hr IV ONETIME ONE Stop: 11/16/19 22:51 Last Admin: 11/17/19 10:07 Dose: Not Given Levofloxacin/Dextrose 750 mg/ (Premix) 150 mls @ 100 mls/hr IV ONETIME ONE Stop: 11/17/19 00:08 Last Admin: 11/16/19 23:14 Dose: 100 mls/hr Potassium Chloride/Sodium Chloride (Normal Saline With 40 Meq Kcl) 1,000 mls @ 150 mls/hr IV ASDIRECTED [facility] Last Admin: 11/17/19 00:25 Dose: 150 mls/hr Potassium Chloride/Sodium Chloride (Normal Saline With 40 Meq Kcl) 1,000 mls @ 150 mls/hr IV ASDIRECTED [facility] Last Admin: 11/18/19 10:48 Dose: 150 mls/hr Levofloxacin/Dextrose 750 mg/ (Premix) 150 mls @ 100 mls/hr IV Q24H [facility] Last Admin: 11/18/19 23:06 Dose: 100 mls/hr Sodium Chloride (Normal Saline) 500 mls @ 999 mls/min IV .BOLUS ONE Stop: 11/17/19 09:37 Last Admin: 11/17/19 09:48 Dose: 999 mls/min Magnesium Sulfate 2 gm/ Premix 50 mls @ 25 mls/hr IV ONETIME ONE Stop: 11/18/19 11:14 Last Admin: 11/18/19 10:48 Dose: 25 mls/hr Magnesium Sulfate (Magnesium Sulfate In Water Premix) Confirm Administered Dose 50 mls @ as directed .ROUTE .STK-MED ONE Stop: 11/18/19 10:41 Last Admin: 11/18/19 10:48 Dose: Not Given Dextrose/Sodium Chloride (Dextrose 5%-Normal Saline) 1,000 mls @ 50 mls/hr IV ASDIRECTED [facility] Last Admin: 11/18/19 15:02 Dose: 50 mls/hr Lactated Ringer's (Ringers, Lactated) 1,000 mls @ 999 mls/hr IV .BOLUS ONE Stop: 11/19/19 06:28 Last Admin: 11/19/19 05:35 Dose: 999 mls/hr Meropenem 1 gm/ Sodium (Chloride) 100 mls @ 200 mls/hr IV Q8H [facility] Last Admin: 11/19/19 06:37 Dose: Not Given Cefoxitin Sodium 2 gm/ Premix 50 mls @ 100 mls/hr IV Q6HR [facility] Last Admin: 11/19/19 07:33 Dose: 100 mls/hr Lactated Ringer's (Ringers, Lactated) 500 mls @ 999 mls/hr IV .BOLUS ONE Stop: 11/19/19 07:00 Last Admin: 11/19/19 06:35 Dose: 999 mls/hr Lactated Ringer's (Ringers, Lactated) 1,000 mls @ 100 mls/hr IV ASDIRECTED [facility] Stop: 11/20/19 18:29 Last Admin: 11/20/19 02:33 Dose: 100 mls/hr Insulin Human Lispro (Humalog) 0 unit SUBCUT BIDAC [facility]; Protocol Last Admin: 11/17/19 18:25 Dose: Not Given Iopamidol (Isovue-300 (61%)) 100 ml IVPUSH ONETIME ONE Stop: 11/16/19 22:41 Last Admin: 11/16/19 23:40 Dose: 100 ml Ketorolac Tromethamine (Toradol) 30 mg IVPUSH ONETIME ONE Stop: 11/16/19 21:39 Last Admin: 11/16/19 21:48 Dose: 30 mg Ketorolac Tromethamine (Toradol) 30 mg IV Q6H PRN PRN Reason: Pain (moderate 4-6) Last Admin: 11/18/19 17:44 Dose: 30 mg Cotati Carbonate (Lithobid) 450 mg PO Q8HR [facility] Stop: 11/18/19 14:01 Meropenem (Merrem) 1 gm IVPUSH Q8H [facility] Last Admin: 11/19/19 06:37 Dose: Not Given Cotati Carbonate (450 Mg) 0 each PO BID [facility] Ondansetron HCl (Zofran) 4 mg IVPUSH ONETIME ONE Stop: 11/16/19 20:23 Last Admin: 11/16/19 20:58 Dose: 4 mg Ondansetron HCl (Zofran) 4 mg IVPUSH ONETIME ONE Stop: 11/17/19 00:11 Last Admin: 11/17/19 00:20 Dose: 4 mg Cariprazine Hydrochloride [ Vraylar] 3 Mg 0 each PO DAILY [facility] Last Admin: 11/17/19 09:50 Dose: Not Given Cotati Carbonate (450 Mg) 450 each PO BID [facility] Last Admin: 11/17/19 09:50 Dose: Not Given Prazosin Hcl [ (Prazosin] 5mg) 0 each PO BEDTIME PRN PRN Reason: NIGHTMARES Cariprazine Hydrochloride [ Vraylar] 3 Mg 0 each PO DAILY [facility] Cotati Carbonate (450 Mg) 0 each PO BID [facility] Cotati Carbonate (450 Mg*Pt Own Med*) 450 each PO Q8H [facility] Stop: 11/18/19 10:01 Last Admin: 11/18/19 10:20 Dose: 450 each Scopolamine (Transderm-Scop) 1.5 mg TOP ONETIME ONE Stop: 11/18/19 14:49 Last Admin: 11/18/19 15:00 Dose: 1.5 mg - Exam Quality Assessment: Reports: DVT Prophylaxis General: Reports: Alert, Oriented, Cooperative, No Acute Distress HEENT: Reports: Pupils Equal, Pupils Reactive, Mucous Membr. Moist/[place] Neck: Reports: Supple, Trachea Midline Lungs: Reports: Clear to Auscultation, Normal Respiratory Effort Cardiovascular: Reports: Regular Rate, Regular Rhythm GI/Abdominal Exam: Normal Bowel Sounds, Soft, Non-Tender, No Distention (Female) Exam: Deferred Rectal (Female) Exam: Deferred Back Exam: Reports: Normal Inspection, Full Range of Motion. Denies: CVA Tenderness (L), CVA Tenderness (R) Extremities: Normal Inspection, Normal Range of Motion, Non-Tender, No Pedal Edema Skin: Reports: Warm, Dry, Intact Neurological: Reports: No New Focal Deficit Psy/Mental Status: Reports: Alert, Other (flat affect )
[2019-11-21 13:25] VITALS: BP 122/79; PULSE 63
== END 2019-11-21 14:30 | disposition home or self-care (01) | DRG 463 ==
LOC: JD.ED 19:36 → JD.MS 11-17 00:27 → OBSVTOIN 11-17 08:43 → JD.MS 11-17 11:10
PROVIDERS: ADMIT Family Medicine; ATTEND Internal Medicine
DX: N10 Acute pyelonephritis (principal); J45.909 Unspecified asthma, uncomplicated; I10 Essential (primary) hypertension; K21.9 Gastro-esophageal reflux disease without esophagitis; F41.9 Anxiety disorder, unspecified; F31.9 Bipolar disorder, unspecified; E11.9 Type 2 diabetes mellitus without complications; F84.0 Autistic disorder; E03.9 Hypothyroidism, unspecified; F17.210 Nicotine dependence, cigarettes, uncomplicated; A49.9 Bacterial infection, unspecified; Z16.12 Extended spectrum beta lactamase (ESBL) resistance; H54.7 Unspecified visual loss; E83.42 Hypomagnesemia; E66.01 Morbid (severe) obesity due to excess calories; N17.9 Acute kidney failure, unspecified; E87.2 Acidosis; Z71.6 Tobacco abuse counseling; Z95.818 Presence of other cardiac implants and grafts; Z88.0 Allergy status to penicillin; Z88.1 Allergy status to other antibiotic agents; Z79.84 Long term (current) use of oral hypoglycemic drugs; Z79.899 Other long term (current) drug therapy; Z68.42 Body mass index [BMI] 45.0-49.9, adult
CPT/HCPCS: 36415; 74177; 74177-26; 80048; 80053; 80178; 81001; 82962; 83605; 83735; 84100; 84145; 85025; 85610; 85730; 86140; 87040; 87086; 87186; 87804; 93005; 96361; 96365; 96366; 96368; 96375; 96376; 99284; 99285-25; A9270-GY; J0694; J1170; J1650; J1885; J1956; J2185; J2405; J2550; J3475; J3480; J7030; J7042; J7050; J7120; Q9967

== ENCOUNTER 2019-11-26 22:04 | Emergency (ER) | payer BC, MEDICAID ==
[2019-11-26 22:18] VITALS: BP 126/71; PULSE 90
--- NOTE | 2019-11-26 23:00 | EDM.PDOC ---
ED HPI GENERAL MEDICAL PROBLEM - General Chief Complaint: Skin Complaint Stated Complaint: RASH Time Seen by Provider: 11/26/19 22:53 - History of Present Illness INITIAL COMMENTS - FREE TEXT/NARRATIVE: 24-year-old female presents the emergency room with a bad rash in her groin. She was instructed to start Diflucan and use this early this evening but it has not helped yet. The patient's been on lots of IV antibiotics for a double kidney infection. She is had this rash fairly mild but over the last day or so it really just got quite irritated and quite worse. Groin Pain Score (Numeric/FACES): 6 - Related Data Allergies Allergy/AdvReac Type Severity Reaction Status Date / Time albuterol Allergy Facial Verified 11/26/19 22:18 Swelling amoxicillin [From Augmentin] Allergy Rash Verified 11/26/19 22:18 clavulanic acid Allergy Rash Verified 11/26/19 22:18 [From Augmentin] Home Meds: Home Meds ClonazePAM [KlonoPIN] 0.5 mg PO BEDTIME 07/10/19 [History] Levothyroxine 75 mcg PO QAM 07/10/19 [History] Prazosin HCl [Prazosin] 6 - 8 mg PO BEDTIME PRN 07/10/19 [History] metFORMIN [Glucophage] 500 mg PO BEDTIME 07/10/19 [History] traZODone HCl [Trazodone HCl] 50 mg PO BEDTIME PRN 07/10/19 [History] [place] Carbonate [Eskalith CR] 450 mg PO BID 11/16/19 [History] Cariprazine Hydrochloride [Vraylar] 3 mg PO DAILY 11/17/19 [History] cloNIDine [Catapres] 0.1 mg PO DAILY 11/17/19 [History] Fluconazole [Diflucan] 150 mg PO ASDIRECTED #2 tab 11/26/19 [Rx] Past Medical History HEENT History: Reports: Impaired Vision Other HEENT History: Wears glasses but did not bring them with Cardiovascular History: Reports: Hypertension, Other (See Below) Other Cardiovascular History: heart block wears a loop recorder for this Respiratory History: Reports: Asthma Other Respiratory History: not on inhalers or nebs when pt asked about this. Gastrointestinal History: Reports: GERD Genitourinary History: Reports: UTI, Recurrent LOGGING ASSISTANT History: Reports: Other (See Below) Other LOGGING ASSISTANT History: LEEP procedure for cervical dysplasia in November of 2018 Musculoskeletal History: Reports: None Neurological History: Reports: Other (See Below) Other Neuro History: aspberger syndrome, autism, stroke-like symptoms with neurological deficits in 2014 Psychiatric History: Reports: Anxiety, Autism, Bipolar, Depression, Mood Swings , PTSD, Suicide Attempt, Suicidal Ideation Endocrine/Metabolic History: Reports: Diabetes, Type II, Hypothyroidism, Obesity /BMI 30+ Hematologic History: Reports: None Immunologic History: Reports: None Oncologic (Cancer) History: Reports: None Dermatologic History: Reports: None - Infectious Disease History Infectious Disease History: Reports: None - Past Surgical History HEENT Surgical History: Reports: None Cardiovascular Surgical History: Reports: Other (See Below) Other Cardiovascular Surgeries/Procedures: loop recorder placed end oct Respiratory Surgical History: Reports: None GI Surgical History: Reports: None Female Surgical History: Reports: LEEP Endocrine Surgical History: Reports: None Neurological Surgical History: Reports: None Social & Family History - Family History Family Medical History: Noncontributory HEENT: Reports: None Cardiac: Reports: None Respiratory: Reports: None GI: Reports: None : Reports: None OBGYN: Reports: None Musculoskeletal: Reports: None Neurological: Reports: None Psychiatric: Reports: None Endocrine/Metabolic: Reports: Diabetes, type II, Obesity/MBI 30+ Hematologic: Reports: None Immunologic: Reports: None - Tobacco Use Smoking Status *Q: Never Smoker - Caffeine Use Caffeine Use: Reports: Coffee, Soda Other Caffeine Use: 2 cans of pop a day and 1 cup of coffee a day. - Recreational Drug Use Recreational Drug Use: No - Living Situation & Occupation Living situation: Reports: Single, with Family ( lives with her parents.) Occupation: Employed ([employer]) ED ROS GENERAL - Review of Systems Review Of Systems: See Below Constitutional: Reports: No Symptoms. Denies: Fever, Chills Respiratory: Reports: No Symptoms Cardiovascular: Reports: No Symptoms GI/Abdominal: Reports: No Symptoms : Reports: No Symptoms ED EXAM, SKIN/RASH Exam: See Below General Appearance: Alert, No Apparent Distress Respiratory/Chest: No Respiratory Distress, Lungs Clear, Normal Breath Sounds Cardiovascular: Regular Rate, Rhythm, No Edema, No Murmur GI/Abdominal: Normal Bowel Sounds, Soft, Non-Tender (Female) Exam: Other (Nephric and redness over the genitalia and the medial proximal thighs most consistent with a yeast vulvovaginitis). No: Normal External Exam Course - Vital Signs Last Recorded V/S: Last Vital Signs Temp 36.6 C 11/26/19 22:15 Pulse 90 11/26/19 22:15 Resp 16 11/26/19 22:15 BP 126/71 11/26/19 22:15 Pulse Ox 100 11/26/19 22:15 - Re-Assessments/Exams Free Text/Narrative Re-Assessment/Exam: 11/26/19 23:06 She is continue use the Monistat as directed we will add Diflucan 150 mg every 72 hours now and for 2 more doses Departure - Departure Time of Disposition: 23:06 Disposition: Home, Self-Care 01 Clinical Impression: Vulvovaginitis due to yeast - Discharge Information Prescriptions: Fluconazole [Diflucan] 150 mg PO ASDIRECTED #2 tab Referrals: Estuardo Denson MD [Primary Care Provider] - Additional Instructions: Return to the emergency room with any questions problems or worsening symptoms. Follow-up with your regular provider as scheduled. Take the medications as directed. You will continue the Monistat as before, use the Diflucan 1 pill every 72 hours your first dose was given here this evening. Sepsis Event Note - Evaluation Sepsis Screening Result: No Definite Risk - Focused Exam Vital Signs: Vital Signs Temp Pulse Resp BP Pulse Ox 11/26/19 22:15 36.6 C 90 16 126/71 100 Date Exam was Performed: 11/26/19 Time Exam was Performed: 22:53
[2019-11-26] MEDS ORDERED: Fluconazole 150 MG Tab PO ONE (23:02)
== END 2019-11-26 23:30 | disposition home or self-care (01) ==
LOC: JD.ED 22:04
DX: B37.3 Candidiasis of vulva and vagina (principal); E11.9 Type 2 diabetes mellitus without complications; E03.9 Hypothyroidism, unspecified; F31.9 Bipolar disorder, unspecified; K21.9 Gastro-esophageal reflux disease without esophagitis; I10 Essential (primary) hypertension; F41.9 Anxiety disorder, unspecified; Z79.899 Other long term (current) drug therapy; Z79.84 Long term (current) use of oral hypoglycemic drugs; Z88.8 Allergy status to other drugs, medicaments and biological substances; Z88.1 Allergy status to other antibiotic agents
CPT/HCPCS: 99282; A9270; 99283

== ENCOUNTER 2021-04-24 10:18 | Emergency (ER) | payer BC ==
[2021-04-24 10:29] VITALS: BP 135/78; PULSE 74
--- NOTE | 2021-04-24 11:26 | EDM.PDOC ---
ED HPI GENERAL MEDICAL PROBLEM - General Chief Complaint: WELLNESS NURSE RN Problem Stated Complaint: VAGINAL BLEEDING PT UNSURE IF SHE IS Time Seen by Provider: 04/24/21 11:09 Source of Information: Reports: Patient, RN Notes Reviewed History Limitations: Reports: No Limitations - History of Present Illness INITIAL COMMENTS - FREE TEXT/NARRATIVE: Patient is a 25-year-old female who presents to the ER for the evaluation of her vaginal bleeding. Patient notes that this started about 3 days ago, she states she is not due to get her menses for about 2 weeks. Notes that she is on OCP prophylaxis. States that she has been bleeding through 2 regular pads every 2 or 3 hours or so. She has been having some lower abdominal cramps/pains, seem to be worse than her typical period cramps. Not complaining of any urinary symptoms like dysuria, frequency or urgency, she is not had any abdominal surgeries. She is a A1 with a spontaneous miscarriage. She has been having unprotected sex and is not sure if she could be at today's visit. Primary care provider is Dr. Millard. Patient denies any other sick-like symptoms, fever/chills, cough/shortness of breath, vomiting/diarrhea. She is complaining of some mild nausea but has had no vomiting. States that movement seems to make the pain worse, and eating also seems to make the pain worse. She states that she did have a regular bowel movement this morning. She is taking no pain medication for this, and the pain does not seem to radiate anywhere in her abdomen. Lower Abdomen Pain Score (Numeric/FACES): 6 - Related Data Allergies Allergy/AdvReac Type Severity Reaction Status Date / Time albuterol Allergy Facial Verified 04/24/21 10:29 Swelling amoxicillin [From Augmentin] Allergy Rash Verified 04/24/21 10:29 clavulanic acid Allergy Rash Verified 04/24/21 10:29 [From Augmentin] Home Meds: Home Meds ClonazePAM [KlonoPIN] 0.5 mg PO BEDTIME PRN 07/10/19 [History] Levothyroxine 75 mcg PO QAM 07/10/19 [History] Prazosin HCl [Prazosin] 6 - 8 mg PO BEDTIME PRN 07/10/19 [History] metFORMIN [Glucophage] 500 mg PO BEDTIME 07/10/19 [History] traZODone HCl [Trazodone HCl] 50 mg PO BEDTIME PRN 07/10/19 [History] Cariprazine HCl [Vraylar] 4.5 mg PO DAILY 11/17/19 [History] cloNIDine [Catapres] 0.1 mg PO DAILY 11/17/19 [History] Cefdinir [Omnicef] 300 mg PO BID 5 Days #10 cap 04/24/21 [Rx] buPROPion HCL [Wellbutrin Xl] 300 mg PO DAILY 04/24/21 [History] Past Medical History HEENT History: Reports: Impaired Vision Other HEENT History: Wears glasses but did not bring them with Cardiovascular History: Reports: Hypertension, Pacemaker Other Cardiovascular History: "complete heart blocks" Respiratory History: Reports: Asthma Other Respiratory History: not on inhalers or nebs because pt is allergic to albuterol Gastrointestinal History: Reports: GERD Genitourinary History: Reports: UTI, Recurrent WELLNESS NURSE RN History: Reports: Polycystic Ovaries, , Spontaneous (x1), Other (See Below) : 1 Para: 0 Other WELLNESS NURSE RN History: LEEP procedure for cervical dysplasia in November of 2018, miscarriage when she was 18 Neurological History: Reports: Other (See Below) Other Neuro History: asperger syndrome, autism, stroke-like symptoms with neurological deficits in 2014 Psychiatric History: Reports: Anxiety, Autism, Bipolar, Depression, Mood Swings, PTSD, Suicide Attempt, Suicidal Ideation Endocrine/Metabolic History: Reports: Hypothyroidism, Obesity/BMI 30+ - Past Surgical History Cardiovascular Surgical History: Reports: Other (See Below) Other Cardiovascular Surgeries/Procedures: loop recorder placed in 2018, pacemaker placed in 10/2019 Female Surgical History: Reports: LEEP Social & Family History - Family History Family Medical History: No Pertinent Family History HEENT: Reports: None Cardiac: Reports: None Respiratory: Reports: None GI: Reports: None : Reports: None OBGYN: Reports: None Musculoskeletal: Reports: None Neurological: Reports: None Psychiatric: Reports: None Endocrine/Metabolic: Reports: Diabetes, type II, Obesity/MBI 30+ Hematologic: Reports: None Immunologic: Reports: None - Tobacco Use Tobacco Use Status *Q: Current Every Day Tobacco User Years of Tobacco use: 3 Packs/Tins Daily: 0.6 - Caffeine Use Caffeine Use: Reports: Coffee, Energy Drinks, Soda, Tea Other Caffeine Use: 2 cans of pop a day and 1 cup of coffee a day. - Recreational Drug Use Recreational Drug Use: Yes Drug Use in Last 12 Months: Yes Recreational Drug Type: Reports: Marijuana/Hashish Recreational Drug Use Frequency: Weekly Recreational Drug Last Use: t-1 - Living Situation & Occupation Living situation: Reports: Single, with Family ( lives with her parents.) Occupation: Employed ([employer]) ED ROS GENERAL - Review of Systems Review Of Systems: Comprehensive ROS is negative, except as noted in HPI. ED EXAM, RENAL/ - Physical Exam Exam: See Below Exam Limited By: No Limitations General Appearance: Alert, WD/WN, No Apparent Distress Respiratory/Chest: No Respiratory Distress, Lungs Clear, Normal Breath Sounds, No Accessory Muscle Use, Chest Non-Tender Cardiovascular: Normal Peripheral Pulses, Regular Rate, Rhythm, No Edema GI/Abdominal: Normal Bowel Sounds, Soft, Non-Tender, No Distention, No Mass (Female) Exam: Deferred Extremities: Normal Inspection, Normal Capillary Refill Neurological: Alert, Oriented, Normal Cognition, No Motor/Sensory Deficits Psychiatric: Normal Affect, Normal Mood Skin Exam: Warm, Dry, Intact, Normal Color, No Rash Course - Vital Signs Last Recorded V/S: Last Vital Signs Temp 97.1 F 04/24/21 10:24 Pulse 74 04/24/21 10:24 Resp 14 04/24/21 10:24 BP 135/78 04/24/21 10:24 Pulse Ox 99 04/24/21 10:24 - Orders/Labs/Meds Orders: Active Orders 24 hr Category Date Time Status CULTURE URINE [MREF] Urgent Lab 04/24/21 12:06 Ordered Labs: Laboratory Tests 04/24/21 04/24/21 04/24/21 Range/Units 10:44 10:44 11:45 WBC 8.97 (3.98-10.04) K/mm3 RBC 4.65 (3.98-5.22) M/mm3 Hgb 14.2 (11.2-15.7) gm/dl Hct 42.7 (34.1-44.9) % MCV 91.8 (79.4-94.8) fl MCH 30.5 (25.6-32.2) pg MCHC 33.3 (32.2-35.5) g/dl RDW Std Deviation 42.0 (36.4-46.3) fL Plt Count 260 (182-369) K/mm3 MPV 11.0 (9.4-12.3) fl Neut % (Auto) 66.4 (34.0-71.1) % Lymph % (Auto) 26.4 (19.3-51.7) % [place] % (Auto) 5.5 (4.7-12.5) % Eos % (Auto) 1.6 (0.7-5.8) Baso % (Auto) 0.0 L (0.1-1.2) % Neut # (Auto) 5.96 (1.56-6.13) K/mm3 Lymph # (Auto) 2.37 (1.18-3.74) K/mm3 [place] # (Auto) 0.49 H (0.24-0.36) K/mm3 Eos # (Auto) 0.14 (0.04-0.36) K/mm3 Baso # (Auto) 0.00 L (0.01-0.08) K/mm3 Urine Color Yellow (Yellow) Urine Appearance Slt cloudy H (Clear) Urine pH 6.0 (5.0-8.0) Ur Specific [place] > or = 1.030 (1.005-1.030) Urine Protein Trace H (Negative) Urine Glucose (UA) Negative (Negative) Urine Ketones Negative (Negative) Urine Occult Blood 3+ H (Negative) Urine Nitrite Negative (Negative) Urine Bilirubin Negative (Negative) Urine Urobilinogen 0.2 (0.2-1.0) Ur Leukocyte Esterase Trace H (Negative) Urine RBC 10-20 H (0-5) /hpf Urine WBC 5-10 H (0-5) /hpf Ur Epithelial Cells 0-5 (0-5) /hpf Urine Bacteria Many H (FEW) /hpf Urine Mucus Not seen (FEW) /hpf Urine HCG, Qual Negative (NEGATIVE) Meds: Medications Discontinued Medications Generic Name Dose Route Start Last Admin Trade Name Freq PRN Reason Stop Dose Admin Cefdinir 300 mg 04/24/21 12:09 04/24/21 12:21 Cefdinir 300 Mg Cap PO 04/24/21 12:10 300 mg ONETIME ONE Administration - Re-Assessments/Exams Free Text/Narrative Re-Assessment/Exam: 04/24/21 11:25 Patient presents to the ER for her vaginal bleeding, we will go ahead and rule out , and then we will get a CBC for initial management. She does not seem to be having worrisome loss of blood signs, we will have her likely follow- up with her regular care provider sometime this week if is negative. 04/24/21 12:30 Patient CBC demonstrates no sign of acute anemia processes or bacterial processes. Urinalysis does look suggestive for UTI, she does have some blood in the urine as well, compatible with her vaginal bleeding but she has some leukocyte Estrace, along with some white cells in the urine, culture has been sent, but we will get her started for a UTI at this time. This does seem to align with most of her symptoms except for the vaginal bleeding, we will wait to see if this helps, and then have her follow-up with her regular care provider if the vaginal bleeding does not seem to get better after the antibiotics. Departure - Departure Time of Disposition: 12:31 Disposition: Home, Self-Care 01 Condition: Good Clinical Impression: UTI (urinary tract infection) Qualifiers: Urinary tract infection type: acute cystitis Hematuria presence: with hematuria Qualified Code(s): N30.01 - Acute cystitis with hematuria - Discharge Information *PRESCRIPTION DRUG MONITORING PROGRAM REVIEWED*: No *COPY OF PRESCRIPTION DRUG MONITORING REPORT IN PATIENT CHERY: No Prescriptions: Cefdinir [Omnicef] 300 mg PO BID 5 Days #10 cap Instructions: Urinary Tract Infection, Adult, [id number] Referrals: Estuardo Denson MD [Primary Care Provider] - Forms: ED Department Discharge Additional Instructions: You have been evaluated in the ED for your vaginal bleeding and low pelvic pain. Your urinalysis was consistent with an acute urinary tract infection. Your urine was sent for culture, and you will be notified if you should need a change in your antibiotic. This may take up to 48 hours to result. All other labs were unremarkable for today's purposes. You may take AZO for urinary pain relief. This is available over the counter, a nd can be attained at any retail store like [employer] or any pharmacy. Please be aware that this medication will make your urine turn orange. You should only use this medication for a time period not longer than 72 hours. You have been given a prescription for Omnicef (cefdinir), 300 mg 1 tablet 2 times a day for 5 days. Please note that the antibiotics can take up to 48 hours to start working. Please increase your oral fluid intake and try to stay adequately hydrated. If your bleeding does not get much better after you have finished the antibiotics, please follow-up with your regular provider or WELLNESS NURSE RN for ongoing management of your vaginal bleeding. Please return to the ED if your symptoms change or worsen. Sepsis Event Note (ED) - Evaluation Sepsis Screening Result: No Definite Risk - Focused Exam Vital Signs: Vital Signs Temp Pulse Resp BP Pulse Ox 04/24/21 10:24 97.1 F 74 14 135/78 99 - My Orders Last 24 Hours: My Active Orders 04/24/21 12:06 CULTURE URINE [MREF] Urgent - Assessment/Plan Last 24 Hours: My Active Orders 04/24/21 12:06 CULTURE URINE [MREF] Urgent
[2021-04-24] MEDS ORDERED: Cefdinir 300 MG Cap PO ONE (12:09)
== END 2021-04-24 12:39 | disposition home or self-care (01) ==
LOC: JD.ED 10:18
DX: N30.01 Acute cystitis with hematuria (principal); I10 Essential (primary) hypertension; J45.909 Unspecified asthma, uncomplicated; E03.9 Hypothyroidism, unspecified; E66.9 Obesity, unspecified; Z68.41 Body mass index [BMI] 40.0-44.9, adult; Z72.0 Tobacco use; Z88.8 Allergy status to other drugs, medicaments and biological substances; Z88.0 Allergy status to penicillin; Z88.1 Allergy status to other antibiotic agents; Z79.899 Other long term (current) drug therapy
CPT/HCPCS: 36415; 81001; 81025; 85025; 87086; 87088; 87186; 99284; A9270; 99283

== ENCOUNTER 2021-06-28 19:45 | Emergency (ER) | payer BC ==
[2021-06-28 19:54] VITALS: PULSE 84
[2021-06-28] MEDS ORDERED: Ibuprofen 600 MG Tab PO ONE (20:13)
--- NOTE | 2021-06-28 20:17 | EDM.PDOC ---
ED HPI GENERAL MEDICAL PROBLEM - General Chief Complaint: Chest Pain Stated Complaint: CHEST PAIN/PACE MAKER Time Seen by Provider: 06/28/21 19:48 Source of Information: Reports: Patient, Significant Other (Boyfriend) History Limitations: Reports: Other (Patient very evasive with many questions) - History of Present Illness INITIAL COMMENTS - FREE TEXT/NARRATIVE: Ms. Hazel is a 25-year-old woman who now presents the ED stating that she has been experiencing nausea and vomiting all day. She then developed palpitations, felt as an irregular heartbeat just prior to developing left upper chest pain at the site of her pacer around 19:15, while eating. She states that she is still feeling palpitations, although her director cardiac is indicating a NSR. She describes her chest pain as sharp and stabbing in character. She states that it is a pain, not a discomfort. She denies any associated symptoms, such as dyspnea, diaphoresis, or sense of impending doom. She did not take any tjoa-vzf-nbhgdmy or home remedies prior to coming to the ED. The patient states that she has had similar symptoms several times last year. She acknowledges that medical evaluations did not find any abnormalities. The patient received a pacemaker in October of this year in [place], for a "complete heart block" however, an ECG, obtained at triage, demonstrates a NSR with no AV block and no ischemic changes. Here in the ED, the patient is found to be hemodynamically stable, afebrile, saturating 95% on room air. She appears to be comfortable, in no acute distress. Prior to this morning, the patient denies having a recent fever, chills, sore throat, ear pain, nasal or sinus congestion, cough, dyspnea, chest pain, palpitations, nausea, vomiting, constipation, diarrhea, abdominal pain, urinary symptoms, recent weight gain or weight loss, recent bloody bowel movements or black bowel movements, recent joint aches, headaches, or rashes. The patient's PCP is Dr. Estuardo Millard. Her Fisher is Dr. Olivia London. She has not received a COVID vaccination. Left Chest Pain Score (Numeric/FACES): 8 - Related Data Allergies Allergy/AdvReac Type Severity Reaction Status Date / Time albuterol Allergy Severe Facial Verified 06/28/21 19:54 Swelling amoxicillin [From Augmentin] Allergy Severe Rash Verified 06/28/21 19:54 clavulanic acid Allergy Severe Rash Verified 06/28/21 19:54 [From Augmentin] Home Meds: Home Meds ClonazePAM [KlonoPIN] 0.5 mg PO BEDTIME PRN 07/10/19 [History] Levothyroxine 75 mcg PO QAM 07/10/19 [History] Prazosin HCl [Prazosin] 6 - 8 mg PO BEDTIME PRN 07/10/19 [History] metFORMIN [Glucophage] 500 mg PO BEDTIME 07/10/19 [History] traZODone HCl [Trazodone HCl] 50 mg PO BEDTIME PRN 07/10/19 [History] Cariprazine HCl [Vraylar] 4.5 mg PO DAILY 11/17/19 [History] Ondansetron [Zofran ODT] 1 tab PO Q8H PRN #10 tab.dis 06/28/21 [Rx] Past Medical History HEENT History: Reports: Impaired Vision (wears glasses) Cardiovascular History: Reports: Other (See Below) (Complete heart block -> pacer) Respiratory History: Reports: Asthma (suspected, not PFT-tested, untreated) Genitourinary History: Reports: Urinary Incontinence (stress incontinence) CLOTH SPONGER History: Reports: Polycystic Ovaries, Spontaneous Psychiatric History: Reports: Anxiety, Autism (Asperger's), Bipolar, Depression, Mood Swings, PTSD, Suicide Attempt, Other (See Below) (Insomnia) Endocrine/Metabolic History: Reports: Hypothyroidism, Obesity/BMI 30+ - Past Surgical History Cardiovascular Surgical History: Reports: Other (See Below) Other Cardiovascular Surgeries/Procedures: loop recorder placed in 2019, pacemaker placed in 10/2019 Female Surgical History: Reports: LEEP Social & Family History - Tobacco Use Tobacco Use Status *Q: Current Every Day Tobacco User Tobacco Use Within Last Twelve Months: Vaping (Nicotine) Years of Tobacco use: 2 Packs/Tins Daily: 0.3 Packs/Tins Daily Comment: Down from 10/02 ppd Tobacco Use Comment: Started smoking 2018 - Caffeine Use Caffeine Use: Reports: Coffee, Energy Drinks Other Caffeine Use: 2 cans of pop a day and 1 cup of coffee a day. - Alcohol Use Alcohol Use History: Yes Alcohol Use Frequency: Socially - Recreational Drug Use Recreational Drug Use: Yes Drug Use in Last 12 Months: Yes Recreational Drug Type: Reports: Marijuana/Hashish (last smoked March 2021), Psilocybin (Mushrooms) Recreational Drug Use Comment: Patient evasive with reporting history - Living Situation & Occupation Living situation: Reports: Single, with Significant Other (Boyfriend) Occupation: Employed (Home health caregiver) ED ROS GENERAL - Review of Systems Review Of Systems: Comprehensive ROS is negative, except as noted in HPI. ED EXAM, GENERAL - Physical Exam Exam: See Below Exam Limited By: No Limitations General Appearance: Alert, WD/WN, No Apparent Distress Eye Exam: Bilateral Eye: EOMI, Normal Inspection Ears: Normal External Exam, Hearing Grossly Normal Nose: Normal Inspection Throat/Mouth: Normal Inspection, Normal Lips, Normal Voice, No Airway Compromise Head: Atraumatic, Normocephalic Neck: Normal Inspection, Full Range of Motion Respiratory/Chest: No Respiratory Distress, Lungs Clear, Normal Breath Sounds, No Accessory Muscle Use, Other (Reproducible tenderness to site of pacer in upper left chest, where there is a well-healed linear surgical wound) Cardiovascular: Normal Peripheral Pulses, Regular Rate, Rhythm, No Edema, No Gallop, No JVD, No Murmur, No Rub Peripheral Pulses: 3+: Radial (L), Radial (R) GI/Abdominal: Normal Bowel Sounds, Soft, Non-Tender, No Organomegaly, No Distention, No Abnormal Bruit, No Mass Back Exam: Normal Inspection, Full Range of Motion, NT Extremities: Normal Inspection, Normal Range of Motion, No Pedal Edema, Normal Capillary Refill Neurological: Alert, Oriented, Normal Cognition, No Motor/Sensory Deficits Psychiatric: Flat Affect Skin Exam: Warm, Dry, Intact, Normal Color, No Rash #1 Interpretation EKG Date: 06/28/21 Time: 19:52 Rhythm: NSR Rate (Beats/Min): 87 [place]: Normal P-Wave: Present QRS: Normal ST-T: Normal QT: Normal Comparison: No Change (11/16/2019) Course - Vital Signs Last Recorded V/S: Last Vital Signs Temp 36.4 C 06/28/21 19:50 Pulse 84 06/28/21 19:50 Resp 16 06/28/21 19:50 BP 122/65 06/28/21 19:50 Pulse Ox 98 06/28/21 19:50 - Orders/Labs/Meds Orders: Active Orders 24 hr Category Date Time Status Chest 2V [CR] Stat Exams 06/28/21 20:13 Taken Labs: Laboratory Tests 06/28/21 06/28/21 06/28/21 Range/Units 20:52 20:52 20:52 WBC 9.33 (3.98-10.04) K/mm3 RBC 4.67 (3.98-5.22) M/mm3 Hgb 14.0 (11.2-15.7) gm/dl Hct 42.4 (34.1-44.9) % MCV 90.8 (79.4-94.8) fl MCH 30.0 (25.6-32.2) pg MCHC 33.0 (32.2-35.5) g/dl RDW Std Deviation 40.1 (36.4-46.3) fL Plt Count 217 (182-369) K/mm3 MPV 11.1 (9.4-12.3) fl Neutrophils % (Manual) 69 H (40-60) % Band Neutrophils % 0 (0-10) % Lymphocytes % (Manual) 28 (20-40) % Atypical Lymphs % 0 % Monocytes % (Manual) 3 (2-10) % Eosinophils % (Manual) 0 L (0.7-5.8) % Basophils % (Manual) 0 L (0.1-1.2) Platelet Estimate Adequate RBC Morph Comment Normal D-Dimer, Quantitative < 0.19 L (0.19-0.50) mg/L Sodium 140 (136-145) mEq/L Potassium 4.0 (3.5-5.1) mEq/L Chloride 105 (98-107) mEq/L Carbon Dioxide 28 (21-32) mEq/L Anion Gap 11.0 (5-15) BUN 8 (7-18) mg/dL Creatinine 1.0 (0.55-1.02) mg/dL Est Cr Clr Drug Dosing 75.55 mL/min Estimated GFR (MDRD) > 60 (>60) mL/min BUN/Creatinine Ratio 8.0 L (14-18) Glucose 129 H (70-99) mg/dL Calcium 8.9 (8.5-10.1) mg/dL Total Bilirubin 0.3 (0.2-1.0) mg/dL AST 13 L (15-37) U/L ALT 32 (14-59) U/L Alkaline Phosphatase 72 (46-116) U/L Troponin I < 0.017 (0.00-0.056) ng/mL Total Protein 6.7 (6.4-8.2) g/dl Albumin 3.5 (3.4-5.0) g/dl Globulin 3.2 gm/dL Albumin/Globulin Ratio 1.1 (1-2) Meds: Medications Discontinued Medications Generic Name Dose Route Start Last Admin Trade Name Sumaya PRN Reason Stop Dose Admin Ibuprofen 600 mg 06/28/21 20:13 06/28/21 20:57 Ibuprofen 600 Mg Tab PO 06/28/21 20:14 600 mg ONETIME ONE Administration - Re-Assessments/Exams Free Text/Narrative Re-Assessment/Exam: 06/28/21 20:15 As the patient's pain is easily reproduced with even mild palpation to her upper left chest, at the site of her pacer, her pain appears to be musculoskeletal in etiology. An ECG, obtained at triage, is grossly unremarkable, with no ischemic changes. Nevertheless, I have ordered a work-up that includes several blood tests and a chest x-ray. In the meantime, the patient will be given some ibuprofen. 06/28/21 21:06 Two-view chest radiograph appears to be grossly normal. The cardiac silhouette is within normal limits. No pulmonary vascular congestion. No pleural effusions. No focal infiltrate. No pneumothorax. 2-chamber left-sided pacer noted. Formal read per the Radiologist pending. 06/28/21 22:49 The patient's CBC is unremarkable. Her CMP is remarkable for mild hyperglycemia of 129, with remainder of her CMP being unremarkable. Her troponin is undetectably low. Her D-dimer is undetectably low. 06/28/21 22:53 Test results discussed with the patient and her boyfriend. Her left-sided chest pain appears to be musculoskeletal in etiology. Her hyperglycemia is most likely due to prediabetes. I will have her follow-up with Dr. Millard in that regard. I will submit a prescription for Zofran ODT to the pharmacy of her choice. Departure - Departure Time of Disposition: 22:54 Disposition: Home, Self-Care 01 Condition: Good Clinical Impression: Musculoskeletal chest pain, Hyperglycemia, Nausea & vomiting - Discharge Information *PRESCRIPTION DRUG MONITORING PROGRAM REVIEWED*: Not Applicable *COPY OF PRESCRIPTION DRUG MONITORING REPORT IN PATIENT CHERY: Not Applicable Prescriptions: Ondansetron [Zofran ODT] 1 tab PO Q8H PRN #10 tab.dis PRN Reason: Nausea/Vomiting Instructions: Nonspecific Chest Pain, Adult, [id number] Referrals: Estuardo Denson MD [Primary Care Provider] - Olivia London MD [Ordering Only Provider] - Forms: ED Department Discharge Additional Instructions: You were seen in the emergency room after experiencing nausea and vomiting all day, followed by palpitations, followed by left-sided chest pain. Work-up in the ER included several blood tests, a chest x-ray, and an ECG. Your work-up found your blood sugar to be elevated at 129. This is most likely due to prediabetes, although actual diabetes is possible, as well. The remainder of your work-up was unremarkable. You have not suffered a heart attack. You do not have a blood clot in your lungs. You do not have pneumonia or collapsed lung. Based on your history, physical exam, and ER tests, the cause of your left-sided chest pain is most likely musculoskeletal in etiology. We recommend you take [id number] ibuprofen as needed for discomfort. A prescription for the antinausea medicine Zofran ODT has been sent to the [facility] located in the [employer] [facility] store. You may dissolve 1 tablet of Zofran ODT on your tongue up to every 8 hours, as needed for nausea/vomiting. We recommend that you follow-up with your PCP, Dr. Estuardo Millard, for further evaluation of your elevated blood sugar. If any other problems, please do not hesitate to return to the ER. Sepsis Event Note (ED) - Evaluation Sepsis Screening Result: No Definite Risk - Focused Exam Vital Signs: Vital Signs Temp Pulse Resp BP Pulse Ox 06/28/21 19:50 36.4 C 84 16 122/65 98 - My Orders Last 24 Hours: My Active Orders 06/28/21 20:13 Chest 2V [CR] Stat - Assessment/Plan Last 24 Hours: My Active Orders 06/28/21 20:13 Chest 2V [CR] Stat
[2021-06-28 23:26] VITALS: BP 111/75
--- NOTE | 2021-06-29 07:54 | CR ---
Chest: 2 views of the chest were obtained. Comparison: No prior chest imaging is available. Heart size and mediastinum are within normal limits. Lungs are clear with no acute parenchymal change. Pacemaker is noted. Bony structures appear within normal limits for the patient's age. Impression: 1. Pacemaker. 2. Nothing acute is seen on 2 view chest x-ray. Diagnostic code #2
== END 2021-06-28 23:15 | disposition home or self-care (01) ==
LOC: JD.ED 19:45
DX: R07.89 Other chest pain (principal); R11.2 Nausea with vomiting, unspecified; R73.9 Hyperglycemia, unspecified; Z88.8 Allergy status to other drugs, medicaments and biological substances; Z88.0 Allergy status to penicillin; E03.9 Hypothyroidism, unspecified; E66.9 Obesity, unspecified; Z68.41 Body mass index [BMI] 40.0-44.9, adult; Z72.0 Tobacco use; Z79.899 Other long term (current) drug therapy
CPT/HCPCS: 36415; 71046; 80053; 84484; 85007; 85027; 85379; 93005; 99285; A9270

== ENCOUNTER 2021-08-16 01:28 | Emergency (ER) | payer BC ==
[2021-08-16 01:45] VITALS: BP 123/73; PULSE 102
--- NOTE | 2021-08-16 02:07 | EDM.PDOC ---
ED HPI GENERAL MEDICAL PROBLEM - General Chief Complaint: Back Pain or Injury Stated Complaint: BACK PAIN Time Seen by Provider: 08/16/21 01:54 Source of Information: Reports: Patient, Significant Other (Boyfriend) History Limitations: Reports: No Limitations - History of Present Illness INITIAL COMMENTS - FREE TEXT/NARRATIVE: Ms. Hazel is a 26-year-old woman who now presents to the ED stating that she has had about 3 weeks of urinary frequency and 2 weeks of dysuria, then developed lower right back pain about 3 days ago, on 08/12/2021. No recent fever, nausea, or vomiting. She states that her current symptoms are similar to prior UTIs, which she does not get very often. The patient states that she took some ibuprofen, but no other medications to address her symptoms since the onset. Here in the ED this morning, the patient was initially found to be slightly tachycardic at 102 bpm, otherwise, she is hemodynamically stable, afebrile, saturating 100% on room air. She appears to be comfortable, in no acute distress. Other than her urinary symptoms and low back pain, the patient denies having a recent fever, chills, sore throat, ear pain, nasal or sinus congestion, cough, dyspnea, chest pain, palpitations, nausea, vomiting, constipation, diarrhea, abdominal pain, recent weight gain or weight loss, recent bloody bowel movements or black bowel movements, recent joint aches, headaches, or rashes. I reviewed the PMHx/PSHx/SocHx, which was reviewed with the patient by the RN. The patient's PCP is Dr. Estuardo Millard. Her Psychiatrist is Dr. Laly Rollins. Her Laborer Stores is Dr. Olivia London. She has not received a COVID vaccination, nor an influenza vaccination this season. Right Lower Back Pain Score (Numeric/FACES): 8 - Related Data Allergies Allergy/AdvReac Type Severity Reaction Status Date / Time albuterol Allergy Severe Facial Verified 06/28/21 19:54 Swelling amoxicillin [From Augmentin] Allergy Intermediate Rash Verified 06/29/21 12:45 clavulanic acid Allergy Intermediate Rash Verified 06/29/21 12:45 [From Augmentin] Home Meds: Home Meds ClonazePAM [KlonoPIN] 0.5 mg PO BEDTIME PRN 07/10/19 [History] Levothyroxine 75 mcg PO QAM 07/10/19 [History] Prazosin HCl [Prazosin] 6 - 8 mg PO BEDTIME PRN 07/10/19 [History] metFORMIN [Glucophage] 500 mg PO BEDTIME 07/10/19 [History] traZODone HCl [Trazodone HCl] 50 mg PO BEDTIME PRN 07/10/19 [History] Cariprazine HCl [Vraylar] 4.5 mg PO DAILY 11/17/19 [History] Ondansetron [Zofran ODT] 1 tab PO Q8H PRN #10 tab.dis 06/28/21 [Rx] Gabapentin [Neurontin] 300 mg PO DAILY 08/16/21 [History] nitrofurantoin macrocrystaL [Nitrofurantoin] 1 cap PO Q12H #9 capsule 08/16/21 [Rx] Past Medical History HEENT History: Reports: Impaired Vision Other HEENT History: Wears glasses Cardiovascular History: Reports: Pacemaker, Other (See Below) Other Cardiovascular History: "complete heart blocks" Respiratory History: Reports: Asthma Other Respiratory History: not on inhalers or nebs because pt is allergic to albuterol Gastrointestinal History: Reports: GERD Genitourinary History: Reports: Pyelonephritis, Urinary Incontinence CLINICAL PROVIDER TRAINER History: Reports: Polycystic Ovaries, Spontaneous Other CLINICAL PROVIDER TRAINER History: LEEP procedure for cervical dysplasia in November of 2018, miscarriage when she was 18 Neurological History: Reports: Other (See Below) Other Neuro History: stroke-like symptoms with neurological deficits in 2014 Psychiatric History: Reports: Anxiety, Autism, Bipolar, Depression, Mood Swings, PTSD, Suicide Attempt, Other (See Below) Other Psychiatric History: Asperger's Endocrine/Metabolic History: Reports: Hypothyroidism, Obesity/BMI 30+ - Infectious Disease History Infectious Disease History: Reports: Novel Coronavirus - Past Surgical History HEENT Surgical History: Reports: None Cardiovascular Surgical History: Reports: Other (See Below) Other Cardiovascular Surgeries/Procedures: loop recorder placed in 2018, pacemaker placed in 10/2019 Respiratory Surgical History: Reports: None GI Surgical History: Reports: None Female Surgical History: Reports: LEEP Endocrine Surgical History: Reports: None Neurological Surgical History: Reports: None Dermatological Surgical History: Reports: None Social & Family History - Family History Family Medical History: No Pertinent Family History HEENT: Reports: None Cardiac: Reports: None Respiratory: Reports: None GI: Reports: None : Reports: None OBGYN: Reports: None Musculoskeletal: Reports: None Neurological: Reports: None Psychiatric: Reports: None Endocrine/Metabolic: Reports: Diabetes, type II, Obesity/MBI 30+ Hematologic: Reports: None Immunologic: Reports: None - Tobacco Use Tobacco Use Status *Q: Unknown Ever Used Tobacco - Caffeine Use Caffeine Use: Reports: Coffee, Energy Drinks Other Caffeine Use: 2 cans of pop a day and 1 cup of coffee a day. - Living Situation & Occupation Living situation: Reports: Single, with Significant Other (Boyfriend) Occupation: Employed (Home health caregiver) ED ROS GENERAL - Review of Systems Review Of Systems: Comprehensive ROS is negative, except as noted in HPI. ED EXAM, RENAL/ - Physical Exam Exam: See Below Exam Limited By: No Limitations General Appearance: Alert, WD/WN, No Apparent Distress Eye Exam: Bilateral Eye: EOMI, Normal Inspection Ears: Normal External Exam, Hearing Grossly Normal Nose: Normal Inspection Throat/Mouth: Normal Inspection, Normal Lips, Normal Voice, No Airway Compromise Head: Atraumatic, Normocephalic Neck: Normal Inspection, Full Range of Motion Respiratory/Chest: No Respiratory Distress, Lungs Clear, Normal Breath Sounds, No Accessory Muscle Use Cardiovascular: Normal Peripheral Pulses, Regular Rate, Rhythm, No Gallop, No JVD, No Murmur, No Rub GI/Abdominal: Normal Bowel Sounds, Soft, Non-Tender (including suprapubically), No Organomegaly, No Distention, No Abnormal Bruit, No Mass Back Exam: Normal Inspection, Full Range of Motion, CVA Tenderness (L), CVA Tenderness (R), Paraspinal Tenderness, Vertebral Tenderness Extremities: Normal Inspection, Normal Range of Motion, Normal Capillary Refill Neurological: Alert, Oriented, Normal Cognition, No Motor/Sensory Deficits Psychiatric: Flat Affect Skin Exam: Warm, Dry, Intact, Normal Color, No Rash Course - Vital Signs Last Recorded V/S: Last Vital Signs Temp 36.4 C 08/16/21 01:43 Pulse 102 H 08/16/21 01:43 Resp 17 08/16/21 01:43 BP 123/73 08/16/21 01:43 Pulse Ox 100 08/16/21 01:43 - Orders/Labs/Meds Orders: Active Orders 24 hr Category Date Time Status CULTURE URINE [MREF] Stat Lab 08/16/21 03:50 Ordered Nitrofurantoin [place]/Macrocryst [Macrobid] Med 08/16/21 03:50 Stat 100 mg PO ONETIME STA Medication Orders Nitrofurantoin Macrocrystals (Nitrofurantoin Monohydrate/Macrocrystalline 100 Mg Cap) 100 mg PO ONETIME STA Stop: 08/16/21 03:51 Labs: Laboratory Tests 08/16/21 08/16/21 Range/Units 02:53 02:53 Urine Color Yellow (Yellow) Urine Appearance Clear (Clear) Urine pH 7.0 (5.0-8.0) Ur Specific [place] 1.015 (1.005-1.030) Urine Protein 1+ H (Negative) Urine Glucose (UA) Negative (Negative) Urine Ketones Negative (Negative) Urine Occult Blood 1+ H (Negative) Urine Nitrite Negative (Negative) Urine Bilirubin Negative (Negative) Urine Urobilinogen 1.0 (0.2-1.0) Ur Leukocyte Esterase 2+ H (Negative) Urine RBC 0-5 (0-5) /hpf Urine WBC 10-20 H (0-5) /hpf Urine WBC Clumps Rare (NOT SEEN) /hpf Ur Squamous Epith Cells 0-5 (0-5) /hpf Urine Bacteria Rare (FEW) /hpf Urine Mucus Few (FEW) /hpf Urine HCG, Qual Negative (NEGATIVE) Meds: Medications Generic Name Dose Route Start Last Admin Trade Name Freq PRN Reason Stop Dose Admin Nitrofurantoin Macrocrystals 100 mg 08/16/21 03:50 Nitrofurantoin Monohydrate/Macrocrystalline 100 Mg Cap PO 08/16/21 03:51 ONETIME STA - Re-Assessments/Exams Free Text/Narrative Re-Assessment/Exam: 08/16/21 02:02 I ordered a urinalysis and urine test. 08/16/21 03:51 The patient's urinalysis is remarkable for 1+ occult blood with 0-5 RBCs, 2+ leukocyte esterase with 10-20 WBCs, nitrate negative with rare bacteria, and 0-5 squamous epithelial cells. Her urine test is negative. Based on the above, I have ordered a urine culture, and will start the patient on oral nitrofurantoin. Departure - Departure Time of Disposition: 03:54 Disposition: Home, Self-Care 01 Condition: Good Clinical Impression: Cystitis - Discharge Information *PRESCRIPTION DRUG MONITORING PROGRAM REVIEWED*: Not Applicable *COPY OF PRESCRIPTION DRUG MONITORING REPORT IN PATIENT CHERY: Not Applicable Referrals: Estuardo Denson MD [Primary Care Provider] - Olivia London MD [Ordering Only Provider] - Laly Rollins [Ordering Only Provider] - Forms: ED Department Discharge Additional Instructions: You were seen in the emergency room for 3 weeks of urinary frequency, 2 weeks of burning urination, and 3 days of lower right back pain. Work-up in the ER included a urinalysis and urine test. The urinalysis indicates that you probably have a urinary tract infection, although we will not know for sure until we get the culture results, which typically takes 3 days. Your urine test was negative. You have been started on the antibiotic nitrofurantoin, and a prescription for nitrofurantoin has been sent to the [facility] located in the [employer] grocery store. Take 1 tablet of nitrofurantoin every 12 hours, starting this evening, 08/16/2021, as prescribed. Finish the entire prescription unless told otherwise by your doctor. In addition to nitrofurantoin, you can also take dhwm-lwy-[id number] Azo, however, if you do, we recommend that you take a total of 6 doses, no more. Azo will turn your urine orange, which is normal. Stay adequately hydrated. It does not really matter what type of fluid you drink. We recommend that you contact the office of your PCP, Dr. Estuardo Millard, on Sunday morning, 08/19/2021, to check on your urine culture results, to make sure that you are on the correct antibiotic. If any other problems, please do not hesitate to return to the ER. Sepsis Event Note (ED) - Evaluation Sepsis Screening Result: No Definite Risk - Focused Exam Vital Signs: Vital Signs Temp Pulse Resp BP Pulse Ox 08/16/21 01:43 36.4 C 102 H 17 123/73 100 - My Orders Last 24 Hours: My Active Orders 08/16/21 03:50 CULTURE URINE [MREF] Stat 08/16/21 03:50 Nitrofurantoin [place]/Macrocryst [Macrobid] 100 mg PO ONETIME STA - Assessment/Plan Last 24 Hours: My Active Orders 08/16/21 03:50 CULTURE URINE [MREF] Stat 08/16/21 03:50 Nitrofurantoin [place]/Macrocryst [Macrobid] 100 mg PO ONETIME STA
[2021-08-16] MEDS ORDERED: Nitrofurantoin Monohydrate/Macrocrystalline 100 MG Cap PO STA (03:50)
== END 2021-08-16 04:06 | disposition home or self-care (01) ==
LOC: JD.ED 01:28
DX: N30.90 Cystitis, unspecified without hematuria (principal); J45.909 Unspecified asthma, uncomplicated; E03.9 Hypothyroidism, unspecified; E66.9 Obesity, unspecified; Z68.41 Body mass index [BMI] 40.0-44.9, adult; Z88.8 Allergy status to other drugs, medicaments and biological substances; Z88.0 Allergy status to penicillin; Z88.1 Allergy status to other antibiotic agents; Z79.84 Long term (current) use of oral hypoglycemic drugs; Z79.899 Other long term (current) drug therapy
CPT/HCPCS: 81001; 81025; 87086; 87088; 87186; 99283; A9270

== ENCOUNTER 2021-09-06 08:36 | Emergency (ER) | payer BC ==
[2021-09-06] MEDS ORDERED: Sodium Chloride 0.9% 10 ML Syringe FLUSH PRN (08:50)
[2021-09-06] MEDS ORDERED: Activated Charcoal/Water Susp 50 GM/240 ML Tube PO ONE (08:54)
[2021-09-06] MEDS ORDERED: Sodium Chloride 0.9% 1,000 ML IV ONE (08:54)
--- NOTE | 2021-09-06 09:19 | EDM.PDOCBH ---
<Sean Giraldo M - Last Filed: 09/06/21 13:56> ED HPI GENERAL MEDICAL PROBLEM - General Chief Complaint: Drug or Alcohol Abuse Stated Complaint: [facility] Time Seen by Provider: 09/06/21 08:43 Source of Information: Reports: Patient History Limitations: Reports: No Limitations - History of Present Illness INITIAL COMMENTS - FREE TEXT/NARRATIVE: 26-year-old female presents the emergency department via [facility] with an overdose of trazodone. Patient reports that approximately at 8 AM this morning, she took 60-50 mg trazodone tabs. Patient denies any suicidal ideations or suicidal intent. She states she has been slightly more stressed lately and has not been sleeping well and she states that she was "just caught up in the moment". She does have a history of suicidal attempt approximately 3 years ago. She does states she has a history of bipolar depression that she sees a psychiatrist, Dr. Rollins, at [facility] in [facility]. She states she did vomit x1 after taking the medications and her significant other did count to 9 pills in the vomit. Patient complains of drowsiness and a headache and denies any nausea once she arrived in the emergency department. Treatments CREDIT CARD CONTROL CLERK: Reports: IV/IO - Related Data Allergies Allergy/AdvReac Type Severity Reaction Status Date / Time albuterol Allergy Severe Facial Verified 09/06/21 08:46 Swelling amoxicillin [From Augmentin] Allergy Severe Rash Verified 09/06/21 08:46 clavulanic acid Allergy Severe Rash Verified 09/06/21 08:46 [From Augmentin] Home Meds: Home Meds ClonazePAM [KlonoPIN] 0.5 mg PO BEDTIME PRN 07/10/19 [History] Levothyroxine 75 mcg PO QAM 07/10/19 [History] Prazosin HCl [Prazosin] 6 - 8 mg PO BEDTIME PRN 07/10/19 [History] metFORMIN [Glucophage] 500 mg PO BEDTIME 07/10/19 [History] traZODone HCl [Trazodone HCl] 50 mg PO BEDTIME PRN 07/10/19 [History] Cariprazine HCl [Vraylar] 4.5 mg PO DAILY 11/17/19 [History] Ondansetron [Zofran ODT] 1 tab PO Q8H PRN #10 tab.dis 06/28/21 [Rx] Gabapentin [Neurontin] 300 mg PO DAILY 08/16/21 [History] nitrofurantoin macrocrystaL [Nitrofurantoin] 1 cap PO Q12H #9 capsule 08/16/21 [Rx] Past Medical History HEENT History: Reports: Impaired Vision Other HEENT History: Wears glasses Cardiovascular History: Reports: Pacemaker, Other (See Below) Other Cardiovascular History: "complete heart blocks" Respiratory History: Reports: Asthma Other Respiratory History: not on inhalers or nebs because pt is allergic to albuterol Gastrointestinal History: Reports: GERD Genitourinary History: Reports: Pyelonephritis, Urinary Incontinence CHEESE MAKER History: Reports: Polycystic Ovaries, Spontaneous Other CHEESE MAKER History: LEEP procedure for cervical dysplasia in November of 2018, miscarriage when she was 18 Neurological History: Reports: Other (See Below) Other Neuro History: stroke-like symptoms with neurological deficits in 2014 Psychiatric History: Reports: Anxiety, Autism, Bipolar, Depression, Mood Swings, PTSD, Suicide Attempt, Other (See Below) Other Psychiatric History: Asperger's Endocrine/Metabolic History: Reports: Hypothyroidism, Obesity/BMI 30+ - Infectious Disease History Infectious Disease History: Reports: Novel Coronavirus - Past Surgical History Cardiovascular Surgical History: Reports: Other (See Below) Other Cardiovascular Surgeries/Procedures: loop recorder placed in 2018, pacemaker placed in 10/2019 Female Surgical History: Reports: LEEP Social & Family History - Family History Family Medical History: No Pertinent Family History HEENT: Reports: None Cardiac: Reports: None Respiratory: Reports: None GI: Reports: None : Reports: None OBGYN: Reports: None Musculoskeletal: Reports: None Neurological: Reports: None Psychiatric: Reports: None Endocrine/Metabolic: Reports: Diabetes, type II, Obesity/MBI 30+ Hematologic: Reports: None Immunologic: Reports: None - Caffeine Use Caffeine Use: Reports: Energy Drinks Other Caffeine Use: 2 cans of pop a day and 1 cup of coffee a day. - Recreational Drug Use Recreational Drug Use: No - Living Situation & Occupation Living situation: Reports: Single, with Significant Other (Boyfriend) Occupation: Employed (Home health caregiver) ED ROS GENERAL - Review of Systems Review Of Systems: Comprehensive ROS is negative, except as noted in HPI. ED EXAM, BEHAVIORAL HEALTH - Physical Exam Exam: See Below Exam Limited By: No Limitations General Appearance: WD/WN, No Apparent Distress, Other (Drowsy) Eye Exam: Bilateral Eye: EOMI, PERRL Ears: Normal External Exam, Hearing Grossly Normal Nose: Normal Inspection Throat/Mouth: Normal Inspection, Normal Lips, Normal Voice, No Airway Compromise Head: Atraumatic Neck: Normal Inspection, Supple Respiratory/Chest: No Respiratory Distress, Lungs Clear, Normal Breath Sounds, No Accessory Muscle Use, Chest Non-Tender Cardiovascular: Normal Peripheral Pulses, Regular Rate, Rhythm, No Edema, No Murmur GI/Abdominal: Normal Bowel Sounds, Soft, Non-Tender, No Distention (Female) Exam: Deferred Rectal (Female) Exam: Deferred Back Exam: Normal Inspection, Full Range of Motion Extremities: Normal Inspection, Normal Range of Motion, Non-Tender, No Pedal Edema, Normal Capillary Refill Neurological: Alert, Normal Cognition, Oriented x 3 Psychiatric: Normal Cognition, Oriented, Flat Affect. No: Alert (Patient is drowsy), Homicidal Thoughts, Suicidal Thoughts, Paranoid Thoughts Skin Exam: Warm, Dry, Intact, Normal color, No rash #1 Interpretation EKG Date: 09/06/21 Time: 08:47 Rhythm: NSR Rate (Beats/Min): 60 [place]: Normal P-Wave: Present QRS: Normal ST-T: Normal QT: Normal Comparison: NA - No Prior EKG EKG Interpretation Comments: Per Dr. Harvey interpretation: Sinus rhythm at 60 bpm; P wave inverted V1?; T wave flattening in lead III; diffuse early repolarization pattern creating ST elevation to, aVF; QTC interval is normal at this time. COURSE, BEHAVIORAL HEALTH COMP - Course Re-Assessment/Re-Exam: Hematology is essentially unremarkable, chemistry reveals a sodium of 141, potassium 3.5, anion gap 16.5, BUN 12, creatinine 0.6, GFR greater than 60, glucose 83, magnesium 2.1, troponin less than 0.017, C-reactive protein less than 0.2, TSH 0.272 Urine test negative Toxicology reveals a salicylate level of 0.5, acetaminophen level 0, urine drug screen is presumptive positive for amphetamine and methamphetamine, ethyl alcohol 0.00 Had our hospital social contact worker, Francisca come over and visit with the patient. Due to the fact that the patient intentionally did take the amount of trazodone that she took and between my visit with the patient as well as Francisca's visit, we have elected to commit the patient. Did discuss this with the patient and she became very distraught. Also discussed patient's drug screen results that she tested positive for amphetamine and methamphetamine. Patient immediately shut down and would no longer talk. Patient's mom states that within the past 2 months, the patient began dating someone and her behavior has changed significantly. Patient is acting extremely hysterical and screaming. Trazodone likely peaked 2-1/2 hours ago. Discussed the case with Dr. Harvey and he recommends medicating the patient with Ativan. Discharge vs Psych Eval/Treatment:: 09/06/21 13:52 I did speak with Trixie Amanda NP at [facility] in [place]. She has accepted care of this patient. Patient will be transported by [facility]. The patient's mother has been aware of the plan. Departure - Departure Time of Disposition: 13:55 Disposition: DC/Tfer to Acute Hospital 02 Condition: Good Clinical Impression: Overdose by ingestion - Discharge Information Referrals: PCP,None [Ordering Only Provider] - Forms: ED Department Discharge Sepsis Event Note (ED) - Evaluation Sepsis Screening Result: No Definite Risk <Ren Harvey - Last Filed: 09/09/21 07:15> COURSE, BEHAVIORAL HEALTH COMP - Course Vital Signs: Last Vital Signs Temp 35.5 C L 09/06/21 08:42 Pulse 77 09/06/21 13:46 Resp 14 09/06/21 13:46 BP 107/61 09/06/21 13:46 Pulse Ox 96 09/06/21 13:46 Orders, Labs, Meds: Laboratory Tests 09/06/21 09/06/21 09/06/21 Range/Units 08:50 08:50 09:13 WBC 7.70 (3.98-10.04) K/mm3 RBC 4.91 (3.98-5.22) M/mm3 Hgb 14.6 (11.2-15.7) gm/dl Hct 43.7 (34.1-44.9) % MCV 89.0 (79.4-94.8) fl MCH 29.7 (25.6-32.2) pg MCHC 33.4 (32.2-35.5) g/dl RDW Std Deviation 41.7 (36.4-46.3) fL Plt Count 289 (182-369) K/mm3 MPV 10.1 (9.4-12.3) fl Neut % (Auto) 64.4 (34.0-71.1) % Lymph % (Auto) 28.3 (19.3-51.7) % Berrien % (Auto) 5.5 (4.7-12.5) % Eos % (Auto) 1.2 (0.7-5.8) Baso % (Auto) 0.3 (0.1-1.2) % Neut # (Auto) 4.97 (1.56-6.13) K/mm3 Lymph # (Auto) 2.18 (1.18-3.74) K/mm3 Berrien # (Auto) 0.42 H (0.24-0.36) K/mm3 Eos # (Auto) 0.09 (0.04-0.36) K/mm3 Baso # (Auto) 0.02 (0.01-0.08) K/mm3 Manual Slide Review Normal smear Sodium 143 (136-145) mEq/L Potassium 3.8 (3.5-5.1) mEq/L Chloride 105 (98-107) mEq/L Carbon Dioxide 27 (21-32) mEq/L Anion Gap 14.8 (5-15) BUN 8 (7-18) mg/dL Creatinine 0.7 (0.55-1.02) mg/dL Est Cr Clr Drug Dosing 111.51 mL/min Estimated GFR (MDRD) > 60 (>60) mL/min BUN/Creatinine Ratio 11.4 L (14-18) Glucose 93 (70-99) mg/dL Calcium 9.3 (8.5-10.1) mg/dL Magnesium 1.9 (1.8-2.4) mg/dL Total Bilirubin 0.3 (0.2-1.0) mg/dL AST 17 (15-37) U/L ALT 31 (14-59) U/L Alkaline Phosphatase 76 (46-116) U/L Total Protein 6.9 (6.4-8.2) g/dl Albumin 3.7 (3.4-5.0) g/dl Globulin 3.2 gm/dL Albumin/Globulin Ratio 1.2 (1-2) TSH 3rd Generation 0.272 L (0.358-3.74) uIU/mL Urine Color (Yellow) Urine Appearance (Clear) Urine pH (5.0-8.0) Ur Specific Pioneer (1.005-1.030) Urine Protein (Negative) Urine Glucose (UA) (Negative) Urine Ketones (Negative) Urine Occult Blood (Negative) Urine Nitrite (Negative) Urine Bilirubin (Negative) Urine Urobilinogen (0.2-1.0) Ur Leukocyte Esterase (Negative) Urine HCG, Qual (NEGATIVE) Salicylates 0.5 L (2.8-20) mg/dL Urine Opiates Screen (WJMOOP=167) Ur Buprenorphine Scrn (CUTOFF=10) Ur Oxycodone Screen (EFR3VY=430) Urine Methadone Screen (AADQGQ=193) Ur Propoxyphene Screen (NZUAHS=033) Acetaminophen 0 L (10-30) ug/mL Ur Barbiturates Screen (EKDZNI=849) Ur Tricyclics Screen (TDDJRD=912) Ur Phencyclidine Scrn (CUTOFF=25) Ur Amphetamine Screen (WXNOUY=172) U Methamphetamines Scrn (MFZHVH=652) U Benzodiazepines Scrn (YJGMZZ=475) U Cocaine Metab Screen (PJZCKS=639) U Marijuana (THC) Screen (CUTOFF=50) Ethyl Alcohol 0.00 (0.00) gm% SARS-CoV-2 RNA (CHANTEL) (NEGATIVE) 09/06/21 09/06/21 09/06/21 Range/Units 11:45 11:45 11:45 WBC (3.98-10.04) K/mm3 RBC (3.98-5.22) M/mm3 Hgb (11.2-15.7) gm/dl Hct (34.1-44.9) % MCV (79.4-94.8) fl MCH (25.6-32.2) pg MCHC (32.2-35.5) g/dl RDW Std Deviation (36.4-46.3) fL Plt Count (182-369) K/mm3 MPV (9.4-12.3) fl Neut % (Auto) (34.0-71.1) % Lymph % (Auto) (19.3-51.7) % Berrien % (Auto) (4.7-12.5) % Eos % (Auto) (0.7-5.8) Baso % (Auto) (0.1-1.2) % Neut # (Auto) (1.56-6.13) K/mm3 Lymph # (Auto) (1.18-3.74) K/mm3 Berrien # (Auto) (0.24-0.36) K/mm3 Eos # (Auto) (0.04-0.36) K/mm3 Baso # (Auto) (0.01-0.08) K/mm3 Manual Slide Review Sodium (136-145) mEq/L Potassium (3.5-5.1) mEq/L Chloride (98-107) mEq/L Carbon Dioxide (21-32) mEq/L Anion Gap (5-15) BUN (7-18) mg/dL Creatinine (0.55-1.02) mg/dL Est Cr Clr Drug Dosing mL/min Estimated GFR (MDRD) (>60) mL/min BUN/Creatinine Ratio (14-18) Glucose (70-99) mg/dL Calcium (8.5-10.1) mg/dL Magnesium (1.8-2.4) mg/dL Total Bilirubin (0.2-1.0) mg/dL AST (15-37) U/L ALT (14-59) U/L Alkaline Phosphatase (46-116) U/L Total Protein (6.4-8.2) g/dl Albumin (3.4-5.0) g/dl Globulin gm/dL Albumin/Globulin Ratio (1-2) TSH 3rd Generation (0.358-3.74) uIU/mL Urine Color Yellow (Yellow) Urine Appearance Clear (Clear) Urine pH 7.0 (5.0-8.0) Ur Specific Pioneer 1.020 (1.005-1.030) Urine Protein Negative (Negative) Urine Glucose (UA) Negative (Negative) Urine Ketones Negative (Negative) Urine Occult Blood Negative (Negative) Urine Nitrite Negative (Negative) Urine Bilirubin Negative (Negative) Urine Urobilinogen 0.2 (0.2-1.0) Ur Leukocyte Esterase Negative (Negative) Urine HCG, Qual Negative (NEGATIVE) Salicylates (2.8-20) mg/dL Urine Opiates Screen Negative (SWKBGO=390) Ur Buprenorphine Scrn Negative (CUTOFF=10) Ur Oxycodone Screen Negative (SCK6EH=428) Urine Methadone Screen Negative (EOXBNM=077) Ur Propoxyphene Screen Negative (CQNOQB=261) Acetaminophen (10-30) ug/mL Ur Barbiturates Screen Negative (EVNHQD=037) Ur Tricyclics Screen Negative (WFKHUP=024) Ur Phencyclidine Scrn Negative (CUTOFF=25) Ur Amphetamine Screen Presumptive positive H (BWEBEA=282) U Methamphetamines Scrn Presumptive positive H (OTPFUJ=113) U Benzodiazepines Scrn Negative (SBEAPK=091) U Cocaine Metab Screen Negative (TJNOBI=175) U Marijuana (THC) Screen Negative (CUTOFF=50) Ethyl Alcohol (0.00) gm% SARS-CoV-2 RNA (CHANTEL) (NEGATIVE) 09/06/21 Range/Units 12:22 WBC (3.98-10.04) K/mm3 RBC (3.98-5.22) M/mm3 Hgb (11.2-15.7) gm/dl Hct (34.1-44.9) % MCV (79.4-94.8) fl MCH (25.6-32.2) pg MCHC (32.2-35.5) g/dl RDW Std Deviation (36.4-46.3) fL Plt Count (182-369) K/mm3 MPV (9.4-12.3) fl Neut % (Auto) (34.0-71.1) % Lymph % (Auto) (19.3-51.7) % Berrien % (Auto) (4.7-12.5) % Eos % (Auto) (0.7-5.8) Baso % (Auto) (0.1-1.2) % Neut # (Auto) (1.56-6.13) K/mm3 Lymph # (Auto) (1.18-3.74) K/mm3 [place] # (Auto) (0.24-0.36) K/mm3 Eos # (Auto) (0.04-0.36) K/mm3 Baso # (Auto) (0.01-0.08) K/mm3 Manual Slide Review Sodium (136-145) mEq/L Potassium (3.5-5.1) mEq/L Chloride (98-107) mEq/L Carbon Dioxide (21-32) mEq/L Anion Gap (5-15) BUN (7-18) mg/dL Creatinine (0.55-1.02) mg/dL Est Cr Clr Drug Dosing mL/min Estimated GFR (MDRD) (>60) mL/min BUN/Creatinine Ratio (14-18) Glucose (70-99) mg/dL Calcium (8.5-10.1) mg/dL Magnesium (1.8-2.4) mg/dL Total Bilirubin (0.2-1.0) mg/dL AST (15-37) U/L ALT (14-59) U/L Alkaline Phosphatase (46-116) U/L Total Protein (6.4-8.2) g/dl Albumin (3.4-5.0) g/dl Globulin gm/dL Albumin/Globulin Ratio (1-2) TSH 3rd Generation (0.358-3.74) uIU/mL Urine Color (Yellow) Urine Appearance (Clear) Urine pH (5.0-8.0) Ur Specific Pioneer (1.005-1.030) Urine Protein (Negative) Urine Glucose (UA) (Negative) Urine Ketones (Negative) Urine Occult Blood (Negative) Urine Nitrite (Negative) Urine Bilirubin (Negative) Urine Urobilinogen (0.2-1.0) Ur Leukocyte Esterase (Negative) Urine HCG, Qual (NEGATIVE) Salicylates (2.8-20) mg/dL Urine Opiates Screen (WIRTJY=389) Ur Buprenorphine Scrn (CUTOFF=10) Ur Oxycodone Screen (PRP3NG=525) Urine Methadone Screen (RGTRMC=410) Ur Propoxyphene Screen (TWFHVE=457) Acetaminophen (10-30) ug/mL Ur Barbiturates Screen (FIOBEK=354) Ur Tricyclics Screen (UJKRJJ=267) Ur Phencyclidine Scrn (CUTOFF=25) Ur Amphetamine Screen (IEUCME=590) U Methamphetamines Scrn (DBFAMV=738) U Benzodiazepines Scrn (BWCGYU=028) U Cocaine Metab Screen (WVDGRA=070) U Marijuana (THC) Screen (CUTOFF=50) Ethyl Alcohol (0.00) gm% SARS-CoV-2 RNA (CHANTEL) Negative (NEGATIVE) Medications Discontinued Medications Generic Name Dose Route Start Last Admin Trade Name Freq PRN Reason Stop Dose Admin Charcoal 100 gm 09/06/21 08:54 09/06/21 09:15 Activated Charcoal/Water Susp 50 Gm/240 Ml Tube PO 09/06/21 08:55 100 gm ONETIME ONE Administration Sodium Chloride 1,000 mls @ 999 mls/hr 09/06/21 08:54 09/06/21 09:15 Normal Saline IV 09/06/21 09:54 999 mls/hr ONETIME ONE Administration Lorazepam 1 mg 09/06/21 12:33 09/06/21 12:37 Lorazepam 2 Mg/Ml Sdv IVPUSH 09/06/21 12:34 1 mg ONETIME ONE Administration Lorazepam Confirm 09/06/21 12:35 09/06/21 12:37 Lorazepam 2 Mg/Ml Sdv Administered 09/06/21 12:36 Not Given Dose 2 mg .ROUTE .STK-MED ONE Sodium Chloride 10 ml 09/06/21 08:50 09/06/21 08:55 Sodium Chloride 0.9% 10 Ml Syringe FLUSH 10 ml ASDIRECTED PRN Administration Keep Vein Open Re-Assessment/Re-Exam Date: 09/06/21 (13:40: There has been no confirmation of bed availability at [facility] in [place] as of yet. He did eat a good dinner. He is due for his sertraline or Zoloft and he will be given that now. I have also added Ativan 1 mg p.o. for anxiety relief. )
[2021-09-06 10:31] LABS: ACETAMINOPHEN 0 ug/mL (10-30)
[2021-09-06] MEDS ORDERED: LORazepam 2 MG/ML SDV IVPUSH ONE (12:33)
[2021-09-06] MEDS ORDERED: LORazepam 2 MG/ML SDV ONE (12:35)
[2021-09-06] MEDS ORDERED: LORazepam 1 MG Tab PO ONE (13:40)
[2021-09-06 13:46] VITALS: BP 107/61; PULSE 77
== END 2021-09-06 14:50 ==
LOC: JD.ED 08:36
DX: T43.211A Poisoning by selective serotonin and norepinephrine reuptake inhibitors, accidental (unintentional), initial encounter (principal); E03.9 Hypothyroidism, unspecified; E66.9 Obesity, unspecified; Z20.822 Contact with and (suspected) exposure to COVID-19; Z79.899 Other long term (current) drug therapy; Z68.38 Body mass index [BMI] 38.0-38.9, adult
CPT/HCPCS: 36415; 80053; 80143; 80179; 80306; 80307; 81003; 81025; 83735; 84443; 85025; 87635; 93005; 96374; 99285; J2060; J7030; U0002

== ENCOUNTER 2021-09-11 04:47 | Emergency (ER) | payer BC ==
[2021-09-11 05:01] VITALS: BP 131/60; PULSE 95
--- NOTE | 2021-09-11 05:32 | EDM.PDOC ---
ED HPI GENERAL MEDICAL PROBLEM - General Chief Complaint: Cardiovascular Problem Stated Complaint: HEART RACING Time Seen by Provider: 09/11/21 05:12 Source of Information: Reports: Patient, RN Notes Reviewed - History of Present Illness INITIAL COMMENTS - FREE TEXT/NARRATIVE: 26 yr old female comes in with sensation of palpitations, chest discomfort for the past 4 to 5 hrs. Feels like her heart is "pounding and racing". Hx of anxiety, recent overdose. Also concerned that she could be , LMP about 1 month ago. No abd pain, cough, fever or chills. - Related Data Allergies Allergy/AdvReac Type Severity Reaction Status Date / Time albuterol Allergy Severe Facial Verified 09/11/21 05:01 Swelling amoxicillin [From Augmentin] Allergy Severe Rash Verified 09/11/21 05:01 clavulanic acid Allergy Severe Rash Verified 09/11/21 05:01 [From Augmentin] Home Meds: Home Meds ClonazePAM [KlonoPIN] 0.5 mg PO BEDTIME PRN 07/10/19 [History] Levothyroxine 75 mcg PO QAM 07/10/19 [History] Prazosin HCl [Prazosin] 6 - 8 mg PO BEDTIME PRN 07/10/19 [History] metFORMIN [Glucophage] 500 mg PO BEDTIME 07/10/19 [History] traZODone HCl [Trazodone HCl] 50 mg PO BEDTIME PRN 07/10/19 [History] Cariprazine HCl [Vraylar] 4.5 mg PO DAILY 11/17/19 [History] Ondansetron [Zofran ODT] 1 tab PO Q8H PRN #10 tab.dis 06/28/21 [Rx] Gabapentin [Neurontin] 300 mg PO DAILY 08/16/21 [History] nitrofurantoin macrocrystaL [Nitrofurantoin] 1 cap PO Q12H #9 capsule 08/16/21 [Rx] Past Medical History HEENT History: Reports: Impaired Vision Other HEENT History: Wears glasses Cardiovascular History: Reports: Pacemaker, Other (See Below) Other Cardiovascular History: "complete heart blocks" Respiratory History: Reports: Asthma Other Respiratory History: not on inhalers or nebs because pt is allergic to albuterol Gastrointestinal History: Reports: GERD Genitourinary History: Reports: Pyelonephritis, Urinary Incontinence SALT LIFTER History: Reports: Polycystic Ovaries, Spontaneous Other SALT LIFTER History: LEEP procedure for cervical dysplasia in November of 2018, miscarriage when she was 18 Neurological History: Reports: Other (See Below) Other Neuro History: stroke-like symptoms with neurological deficits in 2014 Psychiatric History: Reports: ADHD, Anxiety, Autism, Bipolar, Depression, Mood Swings, PTSD, Suicide Attempt, Other (See Below) Other Psychiatric History: Asperger's Endocrine/Metabolic History: Reports: Hypothyroidism, Obesity/BMI 30+ - Infectious Disease History Infectious Disease History: Reports: Novel Coronavirus - Past Surgical History HEENT Surgical History: Reports: None Cardiovascular Surgical History: Reports: Other (See Below) Other Cardiovascular Surgeries/Procedures: loop recorder placed in 2019, pacemaker placed in 10/2019 Respiratory Surgical History: Reports: None GI Surgical History: Reports: None Female Surgical History: Reports: LEEP Endocrine Surgical History: Reports: None Neurological Surgical History: Reports: None Dermatological Surgical History: Reports: None Social & Family History - Family History Family Medical History: No Pertinent Family History HEENT: Reports: None Cardiac: Reports: None Respiratory: Reports: None GI: Reports: None : Reports: None OBGYN: Reports: None Musculoskeletal: Reports: None Neurological: Reports: None Psychiatric: Reports: None Endocrine/Metabolic: Reports: Diabetes, type II, Obesity/MBI 30+ Hematologic: Reports: None Immunologic: Reports: None - Tobacco Use Tobacco Use Status *Q: Never Tobacco User Second Hand Smoke Exposure: No - Caffeine Use Caffeine Use: Reports: Coffee, Energy Drinks, Soda, Tea Other Caffeine Use: 2 cans of pop a day and 1 cup of coffee a day. - Recreational Drug Use Recreational Drug Use: No - Living Situation & Occupation Living situation: Reports: Single, with Significant Other (Boyfriend) Occupation: Employed (Home health caregiver) ED ROS GENERAL - Review of Systems Review Of Systems: See Below Constitutional: Denies: Fever, Chills HEENT: Reports: No Symptoms Respiratory: Denies: Shortness of Breath, Cough Cardiovascular: Reports: Chest Pain GI/Abdominal: Denies: Abdominal Pain, Nausea, Vomiting : Reports: No Symptoms Musculoskeletal: Reports: No Symptoms Skin: Reports: No Symptoms Neurological: Reports: No Symptoms ED EXAM, GENERAL - Physical Exam Exam: See Below General Appearance: Alert, No Apparent Distress Head: Atraumatic Neck: Supple Respiratory/Chest: No Respiratory Distress, Lungs Clear, Normal Breath Sounds Cardiovascular: Regular Rate, Rhythm GI/Abdominal: Soft, Non-Tender. No: Guarding Extremities: Normal Inspection, No Pedal Edema. No: Leg Pain Neurological: Alert, Oriented, No Motor/Sensory Deficits Psychiatric: Normal Affect, Normal Mood Skin Exam: Warm, Normal Color #1 Interpretation EKG Date: 09/11/21 Rhythm: NSR Davy: Normal P-Wave: Present QRS: Normal ST-T: Normal QT: Normal Course - Vital Signs Last Recorded V/S: Last Vital Signs Temp 96.5 F L 09/11/21 04:56 Pulse 95 09/11/21 04:56 Resp 16 09/11/21 04:56 BP 131/60 09/11/21 04:56 Pulse Ox 93 L 09/11/21 04:56 - Orders/Labs/Meds Labs: Laboratory Tests 09/11/21 Range/Units 05:20 Urine HCG, Qual Negative (NEGATIVE) Departure - Departure Time of Disposition: 06:08 Disposition: Home, Self-Care 01 Condition: Fair Clinical Impression: Palpitations, Atypical chest pain Referrals: Estuardo Denson MD [Primary Care Provider] - Forms: ED Department Discharge Additional Instructions: Continue current medications, drink plenty of water to maintain hydration. Follow up clinic as needed. Return to ED as needed if symptoms worsening in any way. Sepsis Event Note (ED) - Evaluation Sepsis Screening Result: No Definite Risk - Focused Exam Vital Signs: Vital Signs Temp Pulse Resp BP Pulse Ox 09/11/21 04:56 96.5 F L 95 16 131/60 93 L
== END 2021-09-11 06:14 | disposition home or self-care (01) ==
LOC: JD.ED 04:47
DX: R07.89 Other chest pain (principal); R00.2 Palpitations; E03.9 Hypothyroidism, unspecified; K21.9 Gastro-esophageal reflux disease without esophagitis; E66.9 Obesity, unspecified; Z68.38 Body mass index [BMI] 38.0-38.9, adult; Z88.0 Allergy status to penicillin; Z88.8 Allergy status to other drugs, medicaments and biological substances; Z79.899 Other long term (current) drug therapy; Z79.84 Long term (current) use of oral hypoglycemic drugs; Z86.16 Personal history of COVID-19
CPT/HCPCS: 81025; 93005; 99283; 99285-25

== ENCOUNTER 2021-12-16 19:40 | Emergency (ER) | payer BC ==
[2021-12-16 20:37] VITALS: BP 118/65; PULSE 82
[2021-12-16] MEDS ORDERED: Sodium Chloride 0.9% 10 ML Syringe FLUSH PRN (20:38)
== END 2021-12-16 23:05 | disposition home or self-care (01) ==
LOC: JD.ED 19:40
DX: O99.891 Other specified diseases and conditions complicating pregnancy (principal); R10.2 Pelvic and perineal pain; Z88.0 Allergy status to penicillin; Z88.8 Allergy status to other drugs, medicaments and biological substances; Z3A.16 16 weeks gestation of pregnancy; Z79.899 Other long term (current) drug therapy; Z79.82 Long term (current) use of aspirin; Z95.0 Presence of cardiac pacemaker
CPT/HCPCS: 36415; 76815; 76815-26; 80053; 81001; 85025; 86140; 99284; 99284-25

== ENCOUNTER 2022-04-10 23:03 | Inpatient (IN) | payer BC, MEDICAID ==
[2022-04-11] MEDS ORDERED: Metoclopramide 10 MG/2 ML SDV IVPUSH PRN (00:51)
[2022-04-11] MEDS ORDERED: Sodium Chloride 0.9% 10 ML Syringe FLUSH PRN (00:51)
[2022-04-11] MEDS ORDERED: Polyethylene Glycol 3350 Powder 17 GM Packet PO PRN (00:51)
[2022-04-11] MEDS ORDERED: Ondansetron 4 MG/2 ML SDV IV PRN (00:51)
[2022-04-11] MEDS ORDERED: cefTRIAXone 2 GM in Sodium Chloride 0.9% 100 ML IV ONE (00:51)
[2022-04-11] MEDS ORDERED: Ondansetron 4 MG Tab.DIS PO PRN (00:51)
[2022-04-11] MEDS: Sodium Chloride 0.9% 1,000 ML IV SCH ×5 (01:05→22:16)
[2022-04-11] MEDS: Nicotine 21 MG/24 Hr Patch TRDERM SCH ×2 (01:18→08:52)
[2022-04-11] MEDS: Acetaminophen 325 MG Tab PO PRN ×4 (01:18→22:18)
[2022-04-11] MEDS: Levothyroxine 75 MCG Tab PO SCH (06:12)
[2022-04-11] MEDS: oxyCODONE 5 MG Tab PO PRN ×3 (06:51→20:21)
[2022-04-11] MEDS: Aspirin 81 MG Tab.EC PO SCH (08:47)
[2022-04-11] MEDS: ARIPiprazole 5 MG Tab PO SCH (08:48)
[2022-04-11] MEDS: Docusate Sodium 100 MG Cap PO PRN (08:48)
[2022-04-11] MEDS: Sodium Chloride 0.9% 10 ML Syringe FLUSH SCH (13:09)
[2022-04-11] MEDS: Prenatal Multivitamin with Calcium/Folic Acid/Iron Tab PO SCH (13:09)
[2022-04-11] MEDS: Prazosin 1 MG Cap PO SCH (20:21)
[2022-04-12] MEDS: cefTRIAXone 1 GM in Sodium Chloride 0.9% 100 ML IV SCH (01:09)
[2022-04-12] MEDS: oxyCODONE 5 MG Tab PO PRN ×2 (02:11→06:34)
[2022-04-12] MEDS: Sodium Chloride 0.9% 10 ML Syringe FLUSH SCH ×2 (03:20→10:07)
[2022-04-12] MEDS: Sodium Chloride 0.9% 1,000 ML IV SCH ×4 (03:57→22:06)
[2022-04-12] MEDS: Levothyroxine 75 MCG Tab PO SCH (06:34)
[2022-04-12] MEDS: Nicotine 21 MG/24 Hr Patch TRDERM SCH ×2 (08:08→20:17)
[2022-04-12] MEDS: ARIPiprazole 5 MG Tab PO SCH (08:09)
[2022-04-12] MEDS: Prenatal Multivitamin with Calcium/Folic Acid/Iron Tab PO SCH (08:09)
[2022-04-12] MEDS: Aspirin 81 MG Tab.EC PO SCH (08:09)
[2022-04-12] MEDS: Docusate Sodium 100 MG Cap PO PRN (08:21)
[2022-04-12] MEDS: Acetaminophen 325 MG Tab PO PRN ×2 (08:21→13:42)
[2022-04-12] MEDS: Prazosin 1 MG Cap PO SCH (20:18)
[2022-04-13] MEDS: cefTRIAXone 1 GM in Sodium Chloride 0.9% 100 ML IV SCH (01:11)
[2022-04-13] MEDS: Sodium Chloride 0.9% 1,000 ML IV SCH (04:28)
[2022-04-13] MEDS: Sodium Chloride 0.9% 10 ML Syringe FLUSH SCH ×2 (05:40→11:10)
[2022-04-13] MEDS: Acetaminophen 325 MG Tab PO PRN (07:46)
[2022-04-13] MEDS: Levothyroxine 75 MCG Tab PO SCH (07:47)
[2022-04-13] MEDS: Prenatal Multivitamin with Calcium/Folic Acid/Iron Tab PO SCH ×2 (07:47→09:08)
[2022-04-13 08:20] VITALS: BP 126/63; PULSE 98
[2022-04-13] MEDS: Nicotine 21 MG/24 Hr Patch TRDERM SCH (09:08)
[2022-04-13] MEDS: Aspirin 81 MG Tab.EC PO SCH (11:09)
[2022-04-13] MEDS: ARIPiprazole 5 MG Tab PO SCH (11:09)
== END 2022-04-13 10:20 | disposition home or self-care (01) | DRG 566 ==
LOC: JD.OBCHECK 23:03 → JD.OB 23:03 → JD.OBCHECK 04-11 00:32 → JD.OB 04-11 00:33 → JD.MS 04-11 19:42 → JD.OB 04-12 16:32
PROVIDERS: ADMIT Obstetrics & Gynecology; ATTEND Obstetrics & Gynecology
PROC: 4A1HXCZ Monitoring of Products of Conception, Cardiac Rate, External Approach (ICD-10-PCS; principal; 2022-04-11)
DX: O23.03 Infections of kidney in pregnancy, third trimester (principal); Z3A.32 32 weeks gestation of pregnancy; O99.283 Endocrine, nutritional and metabolic diseases complicating pregnancy, third trimester; I44.2 Atrioventricular block, complete; O99.413 Diseases of the circulatory system complicating pregnancy, third trimester; E03.9 Hypothyroidism, unspecified; O99.213 Obesity complicating pregnancy, third trimester; O99.333 Smoking (tobacco) complicating pregnancy, third trimester; F17.210 Nicotine dependence, cigarettes, uncomplicated; Z79.890 Hormone replacement therapy; Z95.0 Presence of cardiac pacemaker; Z86.16 Personal history of COVID-19
CPT/HCPCS: 59025; 81001; 87086; 87088; 87186; A9270-GY; J0696; J2405; J3490; J7030

== ENCOUNTER 2022-04-30 15:58 | Inpatient (IN) | payer BC, MEDICAID ==
[2022-04-30] MEDS ORDERED: Ondansetron 8 MG in Sodium Chloride 0.9% 50 ML IV PRN (18:00)
[2022-04-30] MEDS: Lactated Ringers 1,000 ML IV SCH (18:27)
[2022-04-30] MEDS: Acetaminophen 325 MG Tab PO PRN (18:28)
[2022-04-30] MEDS: cefTRIAXone 2 GM in Sodium Chloride 0.9% 100 ML IV SCH (18:28)
[2022-04-30] MEDS: oxyCODONE 5 MG Tab PO PRN (21:02)
[2022-04-30] MEDS ORDERED: diphenhydrAMINE 25 MG Cap PO PRN (23:30)
[2022-05-01] MEDS: Acetaminophen 325 MG Tab PO PRN ×3 (00:29→18:24)
[2022-05-01] MEDS: Lactated Ringers 1,000 ML IV SCH ×3 (02:17→19:01)
[2022-05-01] MEDS: oxyCODONE 5 MG Tab PO PRN ×3 (05:55→20:02)
[2022-05-01] MEDS: Ondansetron 4 MG/2 ML SDV IVPUSH PRN ×2 (06:00→18:20)
[2022-05-01] MEDS ORDERED: Acetaminophen 650 MG Supp RECTAL ONE (06:26)
[2022-05-01] MEDS ORDERED: Metoclopramide 10 MG Tab PO PRN (10:14)
[2022-05-01] MEDS: ARIPiprazole 5 MG Tab PO SCH (13:30)
[2022-05-01] MEDS: Levothyroxine 75 MCG Tab PO SCH (13:30)
[2022-05-01] MEDS: Aspirin 81 MG Tab.EC PO SCH (13:38)
[2022-05-01] MEDS: Prenatal Multivitamin with Calcium/Folic Acid/Iron Tab PO SCH (13:38)
[2022-05-01] MEDS: cefTRIAXone 2 GM in Sodium Chloride 0.9% 100 ML IV SCH (18:21)
[2022-05-01] MEDS ORDERED: Prazosin 1 MG Cap PO SCH (21:00)
[2022-05-01] MEDS ORDERED: ARIPiprazole 5 MG Tab PO SCH (21:00)
[2022-05-02] MEDS: oxyCODONE 5 MG Tab PO PRN ×5 (01:31→21:01)
[2022-05-02] MEDS: Lactated Ringers 1,000 ML IV SCH ×3 (03:42→19:57)
[2022-05-02] MEDS: Levothyroxine 75 MCG Tab PO SCH (05:48)
[2022-05-02] MEDS ORDERED: Levothyroxine 75 MCG Tab PO SCH (06:00)
[2022-05-02] MEDS: ARIPiprazole 5 MG Tab PO SCH (08:50)
[2022-05-02] MEDS: Aspirin 81 MG Tab.EC PO SCH (08:51)
[2022-05-02] MEDS: Prenatal Multivitamin with Calcium/Folic Acid/Iron Tab PO SCH (08:51)
[2022-05-02] MEDS: cefTRIAXone 2 GM in Sodium Chloride 0.9% 100 ML IV SCH (18:11)
[2022-05-02] MEDS: Prazosin 1 MG Cap PO SCH (21:01)
[2022-05-03] MEDS: oxyCODONE 5 MG Tab PO PRN (00:57)
[2022-05-03] MEDS: Lactated Ringers 1,000 ML IV SCH ×2 (03:54→12:32)
[2022-05-03] MEDS: Levothyroxine 75 MCG Tab PO SCH (05:45)
[2022-05-03] MEDS: Aspirin 81 MG Tab.EC PO SCH (10:38)
[2022-05-03] MEDS: ARIPiprazole 5 MG Tab PO SCH (10:38)
[2022-05-03] MEDS: Prenatal Multivitamin with Calcium/Folic Acid/Iron Tab PO SCH (10:38)
[2022-05-03] MEDS: Ertapenem 1 GM in Sodium Chloride 0.9% 50 ML IV SCH (13:30)
[2022-05-03] MEDS: Prazosin 1 MG Cap PO SCH (23:12)
[2022-05-04] MEDS: Lactated Ringers 1,000 ML IV SCH ×2 (01:19→09:13)
[2022-05-04] MEDS: Levothyroxine 75 MCG Tab PO SCH (06:41)
[2022-05-04 08:49] VITALS: BP 131/72; PULSE 80
[2022-05-04] MEDS: Prenatal Multivitamin with Calcium/Folic Acid/Iron Tab PO SCH (09:12)
[2022-05-04] MEDS: Aspirin 81 MG Tab.EC PO SCH (09:12)
[2022-05-04] MEDS: ARIPiprazole 5 MG Tab PO SCH (09:13)
[2022-05-04] MEDS: Ondansetron 4 MG/2 ML SDV IVPUSH PRN (09:18)
[2022-05-04] MEDS: Ertapenem 1 GM in Sodium Chloride 0.9% 50 ML IV SCH (12:53)
== END 2022-05-04 14:00 | disposition home or self-care (01) | DRG 566 ==
LOC: JD.OBCHECK 15:58 → JD.OB 16:02 → JD.OBCHECK 05-01 08:51 → JD.MS 05-01 15:13
PROVIDERS: ADMIT Obstetrics & Gynecology; ATTEND Obstetrics & Gynecology
DX: O23.03 Infections of kidney in pregnancy, third trimester (principal); O99.213 Obesity complicating pregnancy, third trimester; O99.613 Diseases of the digestive system complicating pregnancy, third trimester; K21.9 Gastro-esophageal reflux disease without esophagitis; O99.283 Endocrine, nutritional and metabolic diseases complicating pregnancy, third trimester; E03.9 Hypothyroidism, unspecified; O99.343 Other mental disorders complicating pregnancy, third trimester; F41.9 Anxiety disorder, unspecified; F31.9 Bipolar disorder, unspecified; F43.10 Post-traumatic stress disorder, unspecified; O99.513 Diseases of the respiratory system complicating pregnancy, third trimester; I44.2 Atrioventricular block, complete; J45.909 Unspecified asthma, uncomplicated; Z86.16 Personal history of COVID-19; O10.913 Unspecified pre-existing hypertension complicating pregnancy, third trimester; Z3A.36 36 weeks gestation of pregnancy; Z95.0 Presence of cardiac pacemaker; O99.413 Diseases of the circulatory system complicating pregnancy, third trimester
CPT/HCPCS: 59025; 76816; 76819; 76819-26; 84112; 96360; 96361; 96365; 96367; 96374; A9270-GY; J0696; J1335; J2405; J7120

== ENCOUNTER 2022-07-31 23:58 | Emergency (ER) | payer BC, MEDICAID ==
[2022-08-01] MEDS ORDERED: Sodium Chloride 0.9% 1,000 ML IV SCH (01:30)
[2022-08-01] MEDS ORDERED: Iopamidol 612 MG/ML 100 ML Bottle IVPUSH ONE (01:52)
[2022-08-01 04:16] VITALS: BP 98/54; PULSE 71
== END 2022-08-01 04:29 | disposition home or self-care (01) ==
LOC: JD.ED 23:58
DX: T40.411A Poisoning by fentanyl or fentanyl analogs, accidental (unintentional), initial encounter (principal); S26.91XA Contusion of heart, unspecified with or without hemopericardium, initial encounter; E66.9 Obesity, unspecified; Z68.37 Body mass index [BMI] 37.0-37.9, adult; Z88.0 Allergy status to penicillin; Z88.8 Allergy status to other drugs, medicaments and biological substances; Z79.899 Other long term (current) drug therapy; Z87.891 Personal history of nicotine dependence
CPT/HCPCS: 36415; 71260; 80053; 83605; 83735; 84484; 85025; 93005; 96360; 96361; 99285; J7030; Q9967

== ENCOUNTER 2022-08-09 23:36 | Emergency (ER) | payer OTHER, BC ==
[2022-08-09] MEDS ORDERED: Sodium Chloride 0.9% 10 ML Syringe FLUSH PRN (23:47)
[2022-08-10 11:10] VITALS: BP 115/65; PULSE 75
== END 2022-08-10 10:15 | disposition home or self-care (01) ==
LOC: JD.ED 23:36
DX: S82.842A Displaced bimalleolar fracture of left lower leg, initial encounter for closed fracture (principal); S20.212A Contusion of left front wall of thorax, initial encounter; E03.9 Hypothyroidism, unspecified; E66.9 Obesity, unspecified; Z68.37 Body mass index [BMI] 37.0-37.9, adult; V89.2XXA Person injured in unspecified motor-vehicle accident, traffic, initial encounter
CPT/HCPCS: 36415; 71045; 71045-26; 73610-26-LT; 73610-LT; 80053; 80307; 83690; 84703; 85025; 99284; J3490; U0002

== ENCOUNTER 2023-01-23 16:16 | Emergency (ER) | payer BC, MEDICAID ==
[2023-01-23 16:41] VITALS: PULSE 105
[2023-01-23] MEDS ORDERED: Prazosin 1 MG Cap PO ONE (19:11)
[2023-01-23 19:22] VITALS: BP 120/73
== END 2023-01-23 19:25 ==
LOC: JD.ED 16:16
DX: O99.320 Drug use complicating pregnancy, unspecified trimester (principal); F19.90 Other psychoactive substance use, unspecified, uncomplicated; O99.210 Obesity complicating pregnancy, unspecified trimester; O99.280 Endocrine, nutritional and metabolic diseases complicating pregnancy, unspecified trimester; E03.9 Hypothyroidism, unspecified; Z79.82 Long term (current) use of aspirin; Z88.0 Allergy status to penicillin; Z88.8 Allergy status to other drugs, medicaments and biological substances; Z79.899 Other long term (current) drug therapy; Z95.0 Presence of cardiac pacemaker
CPT/HCPCS: 36415; 80053; 80143; 80179; 80306; 80307; 81025; 85025; 93005; 99285; A9270; 93010; 99284

== ENCOUNTER 2023-02-12 22:25 | Emergency (ER) | payer BC, MEDICAID ==
[2023-02-12 23:33] LABS: BASOPHILS ABSOLUTE AUTO 0.03 K/mm3 (0.01-0.08); BASOPHILS PERCENT AUTO 0.3 % (0.1-1.2); EOSINOPHILS PERCENT AUTO 1.1 (0.7-5.8); HEMATOCRIT 37.9 % (34.1-44.9); HEMOGLOBIN 12.5 gm/dl (11.2-15.7); IMMATURE GRAN ABSOLUTE AUTO 0.02 K/mm3 (0.00-0.10); IMMATURE GRAN PERCENT AUTO 0.2 % (<=1.0); LYMPHOCYTES ABSOLUTE AUTO 2.46 K/mm3 (1.18-3.74); LYMPHOCYTES PERCENT AUTO 26.7 % (19.3-51.7); MEAN CORPUSCULAR HEMOGLOBIN 27.8 pg (25.6-32.2); MEAN CORPUSCULAR VOLUME 84.2 fl (79.4-94.8); MEAN PLATELET VOLUME 9.5 fl (9.4-12.3); MONOCYTES PERCENT AUTO 7.6 % (4.7-12.5); NEUTROPHILS ABSOLUTE AUTO 5.92 K/mm3 (1.56-6.13); NEUTROPHILS PERCENT AUTO 64.1 % (34.0-71.1); PLATELET COUNT,PLT 308 K/mm3 (182-369); WHITE BLOOD CELL COUNT,WBC 9.23 K/mm3 (3.98-10.04)
[2023-02-12 23:34] LABS: AMPHETAMINES SCREEN, URINE PRESUMPTIVE POSITIVE (CUTOFF=500); BARBITURATE SCREEN,URINE NEGATIVE (CUTOFF=200); BENZODIAZEPINES SCREEN,URINE NEGATIVE (CUTOFF=150); BUPRENORPHINE SCREEN,URINE NEGATIVE (CUTOFF=10); METHADONE SCREEN, URINE NEGATIVE (CUTOFF=200); METHAMPHETAMINES SCREEN, URINE PRESUMPTIVE POSITIVE (CUTOFF=500); OXYCODONE SCREEN,URINE NEGATIVE (CUT0FF=100); PROPOXYPHENE SCREEN,URINE NEGATIVE (CUTOFF=300); THC SCREEN,URINE 20 NG/ML NEGATIVE (CUTOFF=50)
[2023-02-13 00:03] LABS: ALBUMIN 3.4 g/dl (3.4-5.0); ANION GAP 12.2 (5-15); BILIRUBIN TOTAL 0.3 mg/dL (0.2-1.0); BUN/CREATININE RATIO 11.4 (14-18); CALCIUM 8.4 mg/dL (8.5-10.1); CREATININE 0.7 mg/dL (0.55-1.02); EST CRCL DRUG DOSING (CG) 110.55 mL/min; POTASSIUM,K 3.2 mEq/L (3.5-5.1); PROTEIN TOTAL,TP 6.8 g/dl (6.4-8.2); TSH 0.421 uIU/mL (0.358-3.74)
[2023-02-13 00:31] VITALS: BP 111/42; PULSE 86
== END 2023-02-13 00:31 | disposition home or self-care (01) ==
LOC: JD.ED 22:25
DX: O99.321 Drug use complicating pregnancy, first trimester (principal); F19.10 Other psychoactive substance abuse, uncomplicated; O99.511 Diseases of the respiratory system complicating pregnancy, first trimester; J45.909 Unspecified asthma, uncomplicated; O99.281 Endocrine, nutritional and metabolic diseases complicating pregnancy, first trimester; E03.9 Hypothyroidism, unspecified; O99.211 Obesity complicating pregnancy, first trimester; E66.9 Obesity, unspecified; O99.331 Smoking (tobacco) complicating pregnancy, first trimester; F17.210 Nicotine dependence, cigarettes, uncomplicated; Z88.8 Allergy status to other drugs, medicaments and biological substances; Z88.0 Allergy status to penicillin; Z88.1 Allergy status to other antibiotic agents; Z79.899 Other long term (current) drug therapy; Z3A.11 11 weeks gestation of pregnancy
CPT/HCPCS: 36415; 80053; 80143; 80179; 80306; 80307; 84443; 84703; 85025; 99283

== ENCOUNTER 2023-05-16 21:14 | Emergency (ER) | payer BC, MEDICAID ==
[2023-05-16] MEDS ORDERED: Lactated Ringers 1,000 ML IV ONE (21:45)
[2023-05-16 22:25] LABS: BASOPHILS ABSOLUTE AUTO 0.02 K/mm3 (0.01-0.08); BASOPHILS PERCENT AUTO 0.2 % (0.1-1.2); EOSINOPHILS ABSOLUTE AUTO 0.08 K/mm3 (0.04-0.36); EOSINOPHILS PERCENT AUTO 0.6 (0.7-5.8); HEMATOCRIT 39.7 % (34.1-44.9); HEMOGLOBIN 13.4 gm/dl (11.2-15.7); IMMATURE GRAN ABSOLUTE AUTO 0.02 K/mm3 (0.00-0.10); IMMATURE GRAN PERCENT AUTO 0.2 % (<=1.0); LYMPHOCYTES ABSOLUTE AUTO 2.31 K/mm3 (1.18-3.74); LYMPHOCYTES PERCENT AUTO 17.8 % (19.3-51.7); MEAN CORPUSCULAR HEMOGLOBIN 29.8 pg (25.6-32.2); MEAN CORPUSCULAR HGB CONC 33.8 g/dl (32.2-35.5); MEAN CORPUSCULAR VOLUME 88.4 fl (79.4-94.8); MEAN PLATELET VOLUME 10.2 fl (9.4-12.3); MONOCYTES ABSOLUTE AUTO 0.68 K/mm3 (0.24-0.36); MONOCYTES PERCENT AUTO 5.2 % (4.7-12.5); PLATELET COUNT,PLT 321 K/mm3 (182-369); RED BLOOD CELL COUNT 4.49 M/mm3 (3.98-5.22); WHITE BLOOD CELL COUNT,WBC 13.01 K/mm3 (3.98-10.04)
[2023-05-16 22:52] LABS: A/G RATIO 0.8 (1-2); ALBUMIN 3.1 g/dl (3.4-5.0); ANION GAP 13.5 (5-15); BILIRUBIN TOTAL 0.1 mg/dL (0.2-1.0); BUN/CREATININE RATIO 8.3 (14-18); CALCIUM 8.9 mg/dL (8.5-10.1); CREATININE 0.6 mg/dL (0.55-1.02); EST CRCL DRUG DOSING (CG) 128.98 mL/min; POTASSIUM,K 3.5 mEq/L (3.5-5.1); PROTEIN TOTAL,TP 7.2 g/dl (6.4-8.2)
[2023-05-16 23:11] LABS: APPEARANCE,URINE CLEAR (Clear); BILIRUBIN,URINE NEGATIVE (Negative); COLOR,URINE YELLOW (Yellow); GLUCOSE,URINE NEGATIVE (Negative); KETONES,URINE NEGATIVE (Negative); LEUKOCYTE ESTERASE,URINE TRACE (Negative); NITRITE,URINE NEGATIVE (Negative); OCCULT BLOOD,URINE NEGATIVE (Negative); PROTEIN,URINE NEGATIVE (Negative); UROBILINOGEN,URINE 0.2 (0.2-1.0)
[2023-05-16 23:21] LABS: BACTERIA,URINE FEW /hpf (FEW); MUCUS,URINE FEW /hpf (FEW); RBC,URINE 0-5 /hpf (0-5)
[2023-05-16] MEDS ORDERED: Acetaminophen 325 MG Tab PO ONE (23:45)
[2023-05-17] MEDS ORDERED: Sulfamethoxazole/Trimethoprim 800-160 MG Tab PO ONE (01:06)
[2023-05-17 01:27] VITALS: BP 118/74; PULSE 66
== END 2023-05-17 01:26 | disposition home or self-care (01) ==
LOC: JD.ED 21:14
DX: O9A.212 Injury, poisoning and certain other consequences of external causes complicating pregnancy, second trimester (principal); T81.49XA Infection following a procedure, other surgical site, initial encounter; O99.512 Diseases of the respiratory system complicating pregnancy, second trimester; J45.909 Unspecified asthma, uncomplicated; O99.282 Endocrine, nutritional and metabolic diseases complicating pregnancy, second trimester; E03.9 Hypothyroidism, unspecified; O99.212 Obesity complicating pregnancy, second trimester; Z88.0 Allergy status to penicillin; Z88.8 Allergy status to other drugs, medicaments and biological substances; Z79.899 Other long term (current) drug therapy; Z3A.20 20 weeks gestation of pregnancy
CPT/HCPCS: 36415; 80053; 81001; 83605; 83690; 85025; 96360; 99284; A9270; J7120; 99283

== ENCOUNTER 2023-11-20 11:42 | Emergency (ER) | payer BC, MEDICAID ==
[2023-11-20 12:40] LABS: BASOPHILS PERCENT AUTO 0.6 % (0.0-1.0); EOSINOPHILS ABSOLUTE AUTO 0.1 K/mm3 (0.0-0.4); EOSINOPHILS PERCENT AUTO 0.8 % (0.0-6.0); HEMATOCRIT 39.1 % (37.0-47.0); IMMATURE GRAN ABSOLUTE AUTO 0.02 K/mm3 (0.00-0.05); IMMATURE GRAN PERCENT AUTO 0.3 % (0.0-0.4); LYMPHOCYTES ABSOLUTE AUTO 1.9 K/mm3 (1.0-4.8); LYMPHOCYTES PERCENT AUTO 26.6 % (24.0-44.0); MEAN CORPUSCULAR HGB CONC 33.2 g/dl (32.0-36.0); MEAN CORPUSCULAR VOLUME 84.1 fl (83.0-99.0); MEAN PLATELET VOLUME 9.8 fl (9.4-12.3); MONOCYTES ABSOLUTE AUTO 0.6 K/mm3 (0.0-0.8); MONOCYTES PERCENT AUTO 7.9 % (0.0-8.0); NEUTROPHILS ABSOLUTE AUTO 4.6 K/mm3 (1.8-7.7); NEUTROPHILS PERCENT AUTO 63.8 % (41.0-71.0); PLATELET COUNT,PLT 328 K/mm3 (150-400); RED BLOOD CELL COUNT 4.65 M/mm3 (4.10-5.30); WHITE BLOOD CELL COUNT,WBC 7.13 K/mm3 (3.9-11.3)
[2023-11-20 12:48] LABS: A/G RATIO 1.3 (1-2); ALANINE AMINOTRANSFERASE,ALT 36 U/L (14-59); ALBUMIN 4.4 g/dl (3.4-5.0); ALKALINE PHOSPHATASE 92 U/L (46-116); ANION GAP 15.6 (5-15); ASPARTATE AMNIOTRANSFERASE,AST 20 U/L (15-37); BILIRUBIN TOTAL 0.9 mg/dL (0.2-1.0); BLOOD UREA NITROGEN,BUN 23 mg/dL (7-18); CALCIUM 9.4 mg/dL (8.5-10.1); CARBON DIOXIDE,CO2 26 mEq/L (21-32); CHLORIDE,CL 101 mEq/L (98-107); EST CRCL DRUG DOSING (CG) 73.62 mL/min; ESTIMATED GFR 80 mL/min (>60); GLUCOSE RANDOM 83 mg/dL (70-99); POTASSIUM,K 3.6 mEq/L (3.5-5.1); PROTEIN TOTAL,TP 7.8 g/dl (6.4-8.2); SODIUM,NA 139 mEq/L (136-145); TSH 2.789 uIU/mL (0.358-3.74)
[2023-11-20 12:50] LABS: ACETAMINOPHEN 0 ug/mL (10-30); HCG QUANTITATIVE < 1.0 mIU/mL
[2023-11-20 13:20] LABS: BARBITURATE SCREEN,URINE NEGATIVE (CUTOFF=200); BENZODIAZEPINES SCREEN,URINE NEGATIVE (CUTOFF=150); BUPRENORPHINE SCREEN,URINE NEGATIVE (CUTOFF=10); METHADONE SCREEN, URINE NEGATIVE (CUTOFF=200); METHAMPHETAMINES SCREEN, URINE PRESUMPTIVE POSITIVE (CUTOFF=500); OXYCODONE SCREEN,URINE NEGATIVE (CUT0FF=100); THC SCREEN,URINE 20 NG/ML NEGATIVE (CUTOFF=50)
[2023-11-20 13:22] LABS: AMPHETAMINES SCREEN, URINE PRESUMPTIVE POSITIVE (CUTOFF=500)
[2023-11-20 14:53] VITALS: BP 127/100; PULSE 91
== END 2023-11-20 14:23 ==
LOC: JD.ED 11:42
DX: F15.10 Other stimulant abuse, uncomplicated (principal); F32.A Depression, unspecified; F43.10 Post-traumatic stress disorder, unspecified; F17.210 Nicotine dependence, cigarettes, uncomplicated; E66.9 Obesity, unspecified; E03.9 Hypothyroidism, unspecified; J45.909 Unspecified asthma, uncomplicated; Z95.0 Presence of cardiac pacemaker; Z79.899 Other long term (current) drug therapy; Z88.1 Allergy status to other antibiotic agents; Z88.8 Allergy status to other drugs, medicaments and biological substances
CPT/HCPCS: 36415; 80053; 80143; 80179; 80306; 80307; 84443; 84702; 85025; 99283

== ENCOUNTER 2024-02-18 17:34 | Inpatient (IN) | payer MEDICAID ==
[2024-02-18 19:11] LABS: HEMATOCRIT 36.2 % (37.0-47.0); HEMOGLOBIN 11.7 gm/dl (12.0-16.0); MEAN CORPUSCULAR HGB CONC 32.3 g/dl (32.0-36.0); MEAN CORPUSCULAR VOLUME 83.4 fl (83.0-99.0); MEAN PLATELET VOLUME 11.2 fl (9.4-12.3); PLATELET COUNT,PLT 235 K/mm3 (150-400); RED BLOOD CELL COUNT 4.34 M/mm3 (4.10-5.30); WHITE BLOOD CELL COUNT,WBC 10.69 K/mm3 (3.9-11.3)
[2024-02-18] MEDS: Ibuprofen 600 MG Tab PO ONE (19:21)
[2024-02-18] MEDS: Sodium Chloride 0.9% 1,000 ML IV STA (19:22)
[2024-02-18] MEDS: cefTRIAXone 2 GM in Sodium Chloride 0.9% 100 ML IV ONE (19:22)
[2024-02-18] MEDS: Ondansetron 4 MG/2 ML SDV IVPUSH ONE (19:22)
[2024-02-18] MEDS: Sodium Chloride 0.9% 10 ML Syringe FLUSH ONE (19:29)
[2024-02-18 19:32] LABS: INR 1.1; PROTHROMBIN TIME 11.7 SECONDS (9.7-12.0)
[2024-02-18 19:35] LABS: A/G RATIO 0.8 (1-2); ALBUMIN 3.4 g/dl (3.4-5.0); ANION GAP 14.6 (5-15); BILIRUBIN TOTAL 0.3 mg/dL (0.2-1.0); C-REACTIVE PROTEIN 23.59 mg/dL (<0.30); CREATININE 1.1 mg/dL (0.55-1.02); EST CRCL DRUG DOSING (CG) 66.92 mL/min; POTASSIUM,K 3.6 mEq/L (3.5-5.1); PROTEIN TOTAL,TP 7.5 g/dl (6.4-8.2)
[2024-02-18 19:37] LABS: LACTIC ACID 1.4 mmol/L (0.4-2.0)
[2024-02-18 19:49] LABS: BAND PERCENT MAN 0 % (0-10); BASOPHILS PERCENT MAN 0 (0.1-1.2); EOSINOPHILS PERCENT MAN 0 % (0.7-5.8); LYMPHOCYTES % ATYPICAL MANUAL 0 %; LYMPHOCYTES PERCENT MAN 8 % (20-40); MONOCYTES PERCENT MAN 7 % (2-10); PLATELET COUNT ESTIMATE ADEQUATE
[2024-02-18] MEDS: Iopamidol 612 MG/ML 100 ML Bottle IVPUSH ONE (19:57)
[2024-02-18] MEDS: Sodium Chloride 0.9% 10 ML Syringe FLUSH PRN (19:58)
[2024-02-18] MEDS: Sodium Chloride 0.9% 1,000 ML IV SCH (20:51)
[2024-02-18 20:57] LABS: APPEARANCE,URINE CLEAR (Clear); BILIRUBIN,URINE NEGATIVE (Negative); COLOR,URINE YELLOW (Yellow); GLUCOSE,URINE NEGATIVE (Negative); KETONES,URINE NEGATIVE (Negative); LEUKOCYTE ESTERASE,URINE 1+ (Negative); NITRITE,URINE NEGATIVE (Negative); OCCULT BLOOD,URINE TRACE-INTACT (Negative); PROTEIN,URINE NEGATIVE (Negative); UROBILINOGEN,URINE 0.2 (0.2-1.0)
[2024-02-18 21:05] LABS: CORONAVIRUS COVID-19 NAA NEGATIVE (NEGATIVE); INFLUENZA A NAA NEGATIVE (NEGATIVE); RESPIRATORY SYNCYTIAL VIR NAA NEGATIVE (NEGATIVE)
[2024-02-18 21:15] LABS: BACTERIA,URINE FEW /hpf (FEW); MUCUS,URINE FEW /hpf (FEW); SQUAMOUS EPITHELIAL CELLS,UR 0-5 /hpf (0-5)
[2024-02-19] MEDS: Acetaminophen 325 MG Tab PO PRN (01:45)
[2024-02-19] MEDS: Ondansetron 4 MG/2 ML SDV IVPUSH PRN (07:48)
[2024-02-19] MEDS ORDERED: Non-Formulary Medication 1 Each (Levalbuterol Tartrate [Xopenex Hfa] 15 GM Inhaler) INH PRN (08:05)
[2024-02-19] MEDS: Enoxaparin 40 MG/0.4 ML Syringe SUBCUT SCH (09:00)
[2024-02-19] MEDS: CARIPRAZINE HCL 4.5 MG PO SCH (10:29)
[2024-02-19] MEDS: cefTRIAXone 2 GM in Sodium Chloride 0.9% 100 ML IV SCH (17:07)
[2024-02-20] MEDS: Levothyroxine 75 MCG Tab PO SCH (06:04)
[2024-02-20 06:44] LABS: BASOPHILS PERCENT AUTO 0.4 % (0.0-1.0); EOSINOPHILS PERCENT AUTO 0.5 % (0.0-6.0); HEMATOCRIT 32.6 % (37.0-47.0); HEMOGLOBIN 10.5 gm/dl (12.0-16.0); IMMATURE GRAN ABSOLUTE AUTO 0.02 K/mm3 (0.00-0.05); IMMATURE GRAN PERCENT AUTO 0.3 % (0.0-0.4); LYMPHOCYTES ABSOLUTE AUTO 1.7 K/mm3 (1.0-4.8); LYMPHOCYTES PERCENT AUTO 23.5 % (24.0-44.0); MEAN CORPUSCULAR HEMOGLOBIN 26.6 pg (28.0-32.0); MEAN CORPUSCULAR HGB CONC 32.2 g/dl (32.0-36.0); MEAN CORPUSCULAR VOLUME 82.5 fl (83.0-99.0); MEAN PLATELET VOLUME 10.5 fl (9.4-12.3); MONOCYTES ABSOLUTE AUTO 0.8 K/mm3 (0.0-0.8); MONOCYTES PERCENT AUTO 10.2 % (0.0-8.0); NEUTROPHILS ABSOLUTE AUTO 4.8 K/mm3 (1.8-7.7); NEUTROPHILS PERCENT AUTO 65.1 % (41.0-71.0); PLATELET COUNT,PLT 254 K/mm3 (150-400); RED BLOOD CELL COUNT 3.95 M/mm3 (4.10-5.30); WHITE BLOOD CELL COUNT,WBC 7.35 K/mm3 (3.9-11.3)
[2024-02-20 07:50] LABS: A/G RATIO 0.7 (1-2); ALBUMIN 2.8 g/dl (3.4-5.0); ANION GAP 14.9 (5-15); BILIRUBIN TOTAL 0.2 mg/dL (0.2-1.0); BUN/CREATININE RATIO 12.2 (14-18); C-REACTIVE PROTEIN 23.85 mg/dL (<0.30); CALCIUM 8.8 mg/dL (8.5-10.1); CREATININE 0.9 mg/dL (0.55-1.02); EST CRCL DRUG DOSING (CG) 82.39 mL/min; MAGNESIUM 1.9 mg/dL (1.8-2.4); POTASSIUM,K 3.9 mEq/L (3.5-5.1); PROTEIN TOTAL,TP 6.9 g/dl (6.4-8.2)
[2024-02-20] MEDS ORDERED: Levalbuterol HCl 1.25 MG/3 ML Neb INH PRN (09:33)
[2024-02-21 05:31] VITALS: PULSE 82
[2024-02-21 06:14] LABS: BASOPHILS PERCENT AUTO 0.5 % (0.0-1.0); EOSINOPHILS ABSOLUTE AUTO 0.1 K/mm3 (0.0-0.4); EOSINOPHILS PERCENT AUTO 1.8 % (0.0-6.0); HEMATOCRIT 35.5 % (37.0-47.0); HEMOGLOBIN 11.5 gm/dl (12.0-16.0); IMMATURE GRAN ABSOLUTE AUTO 0.02 K/mm3 (0.00-0.05); IMMATURE GRAN PERCENT AUTO 0.4 % (0.0-0.4); LYMPHOCYTES ABSOLUTE AUTO 1.9 K/mm3 (1.0-4.8); LYMPHOCYTES PERCENT AUTO 33.4 % (24.0-44.0); MEAN CORPUSCULAR HEMOGLOBIN 26.9 pg (28.0-32.0); MEAN CORPUSCULAR HGB CONC 32.4 g/dl (32.0-36.0); MEAN CORPUSCULAR VOLUME 82.9 fl (83.0-99.0); MEAN PLATELET VOLUME 10.2 fl (9.4-12.3); MONOCYTES ABSOLUTE AUTO 0.5 K/mm3 (0.0-0.8); MONOCYTES PERCENT AUTO 8.7 % (0.0-8.0); NEUTROPHILS ABSOLUTE AUTO 3.1 K/mm3 (1.8-7.7); NEUTROPHILS PERCENT AUTO 55.2 % (41.0-71.0); PLATELET COUNT,PLT 283 K/mm3 (150-400); RED BLOOD CELL COUNT 4.28 M/mm3 (4.10-5.30); WHITE BLOOD CELL COUNT,WBC 5.66 K/mm3 (3.9-11.3)
[2024-02-21 06:45] LABS: A/G RATIO 0.7 (1-2); ALBUMIN 2.9 g/dl (3.4-5.0); ANION GAP 14.7 (5-15); BILIRUBIN TOTAL 0.2 mg/dL (0.2-1.0); C-REACTIVE PROTEIN 11.46 mg/dL (<0.30); CALCIUM 8.8 mg/dL (8.5-10.1); CREATININE 0.8 mg/dL (0.55-1.02); EST CRCL DRUG DOSING (CG) 92.69 mL/min; MAGNESIUM 2.1 mg/dL (1.8-2.4); POTASSIUM,K 3.7 mEq/L (3.5-5.1); PROTEIN TOTAL,TP 7.2 g/dl (6.4-8.2)
[2024-02-21 08:19] VITALS: BP 102/63
[2024-02-22] MEDS ORDERED: CARIPRAZINE HCL 4.5 MG PO SCH (09:00)
== END 2024-02-21 11:05 | disposition home or self-care (01) | DRG 690 ==
LOC: JD.ED 17:34 → JD.MS 20:52
PROVIDERS: ADMIT Internal Medicine; ATTEND Internal Medicine
DX: N12 Tubulo-interstitial nephritis, not specified as acute or chronic (principal); N10 Acute pyelonephritis; E66.9 Obesity, unspecified; I44.2 Atrioventricular block, complete; Z16.29 Resistance to other single specified antibiotic; F84.0 Autistic disorder; Z79.890 Hormone replacement therapy; H54.7 Unspecified visual loss; J45.909 Unspecified asthma, uncomplicated; Z68.37 Body mass index [BMI] 37.0-37.9, adult; K21.9 Gastro-esophageal reflux disease without esophagitis; F41.9 Anxiety disorder, unspecified; F31.9 Bipolar disorder, unspecified; E03.9 Hypothyroidism, unspecified; F43.10 Post-traumatic stress disorder, unspecified; F17.210 Nicotine dependence, cigarettes, uncomplicated; E66.01 Morbid (severe) obesity due to excess calories; Z95.0 Presence of cardiac pacemaker; Z88.8 Allergy status to other drugs, medicaments and biological substances; Z88.0 Allergy status to penicillin; Z79.899 Other long term (current) drug therapy; Z79.51 Long term (current) use of inhaled steroids; Z68.36 Body mass index [BMI] 36.0-36.9, adult; Z86.16 Personal history of COVID-19; Z91.51 Personal history of suicidal behavior; Z98.890 Other specified postprocedural states
CPT/HCPCS: 0241U; 36415; 74177; 80053; 81001; 81003; 83605; 83735; 84703; 85007; 85025; 85027; 85610; 86140; 87040; 87086; 96365; 96375; 99285; 99285-25; A9270-GY; J0696; J1650; J2405; J3490; J7030; Q9967

== ENCOUNTER 2024-03-15 18:20 | Emergency (ER) | payer MEDICAID ==
[2024-03-15] MEDS: OLANZapine 10 MG Vial IM ONE (18:53)
[2024-03-15 20:25] VITALS: BP 129/79; PULSE 87
== END 2024-03-15 20:23 | disposition home or self-care (01) ==
LOC: JD.ED 18:20
DX: F15.10 Other stimulant abuse, uncomplicated (principal); E11.9 Type 2 diabetes mellitus without complications; Z88.8 Allergy status to other drugs, medicaments and biological substances; Z88.0 Allergy status to penicillin
CPT/HCPCS: 96372; 99283; J2405